=== PATIENT | male | born 1950 | race Caucasian/White ===

== ENCOUNTER 2017-01-22 18:16 | Inpatient (IN) | payer OTHER ==
[2017-01-22 18:45] VITALS: BMI 29.4
--- NOTE | 2017-01-22 19:12 | PDOC ---
History of Present Illness - General Chief Complaint: Revisit,Radiology Variance Stated Complaint: PCP SENT/CLOTS IN BOTH LUNGS Time Seen by Provider: 01/22/17 19:07 History Source: Patient Exam Limitations: No Limitations - History of Present Illness Initial Comments: 01/23/17 03:43 66-year-old male presents to the emergency department complaining of a bilateral pulmonary embolus. Patient states he's been experiencing a nonproductive cough 6 months. Patient states he was seen by his PMD who ordered an x-ray 4 months ago which was normal. Patient saw his PMD recently and had an appointment to get a CAT scan of his chest with IV contrast to determine any lung disease. Patient went to [facility] today and the radiologist directly him to the emergency department. Patient denies nausea, vomiting, fever/chills, headache, lightheadedness, dizziness, neck pains, back pains, chest pain, shortness of breath, abdominal pains, extremity numbness or tingling sensation, calf pain. Patient denies recent travel/flight, prolonged sitting or recent surgery. Associated Symptoms: reports: cough (since Aug 2016) Past History - Past Medical History Allergies/Adverse Reactions: Allergies Allergy/AdvReac Type Severity Reaction Status Date / Time No Known Allergies Allergy Verified 01/22/17 18:39 Home Medications: Ambulatory Orders Amlodipine Besylate 10 mg PO DAILY 01/22/17 Atenolol [Tenormin -] 50 mg PO DAILY 01/22/17 Atorvastatin Calcium 10 mg PO DAILY 01/22/17 Lisinopril/Hydrochlorothiazide [Lisinopril-Hctz 20-12.5 mg Tab] 1 each PO DAILY 01/22/17 HTN: Yes Hypercholesterolemia: Yes - Psycho/Social/Smoking Cessation Hx Suicidal Ideation: No Smoking History: Never smoked Review of Systems - Review of Systems Able to Perform ROS?: Yes Comments:: 01/23/17 03:45 CONSTITUTIONAL: Absent: fever, chills, diaphoresis, generalized weakness, malaise, loss of appetite HEENT: Absent: rhinorrhea, nasal congestion, throat pain, throat swelling, difficulty swallowing, mouth swelling, ear pain, eye pain, visual Changes CARDIOVASCULAR: Absent: chest pain, loss of consciousness, palpitations, irregular heart rate, peripheral edema RESPIRATORY: Absent: cough, shortness of breath, dyspnea with exertion, orthopnea, wheezing, stridor, hemoptysis GASTROINTESTINAL: Absent: abdominal pain, abdominal distension, nausea, vomiting, diarrhea, constipation, melena, hematochezia GENITOURINARY: Absent: dysuria, frequency, urgency, hesitancy, hematuria, flank pain, genital pain MUSCULOSKELETAL: Absent: myalgia, arthralgia, joint swelling SKIN: Absent: rash, itching, pallor HEMATOLOGIC/IMMUNOLOGIC: Absent: easy bleeding, easy bruising, lymphadenopathy, frequent infections ENDOCRINE: Absent: unexplained weight gain, unexplained weight loss, heat intolerance, cold intolerance NEUROLOGIC: Absent: headache, focal weakness or paresthesias, dizziness, unsteady gait, seizure, mental status changes, bladder or bowel incontinence PSYCHIATRIC: Absent: anxiety, depression, suicidal or homicidal ideation, hallucinations. Is the patient limited Mohawk proficient: No *Physical Exam - Vital Signs Last Vital Signs Temp Pulse Resp BP Pulse Ox 97.9 F 65 19 127/58 95 01/22/17 18:39 01/22/17 18:39 01/22/17 18:39 01/22/17 18:39 01/22/17 18:39 - Physical Exam Comments: 01/23/17 03:45 GENERAL: Well developed, well nourished. Awake and alert. No acute distress. HEENT: Normocephalic, atraumatic. PERRLA, EOMI. No conjunctival pallor. Sclera are non- icteric. Moist mucous membranes. Oropharynx is clear. NECK: Supple. Full ROM. No JVD. Carotid pulses 2+ and symmetric, without bruits. No thyromegaly. No lymphadenopathy. CARDIOVASCULAR: Regular rate and rhythm. No murmurs, rubs, or gallops. Distal pulses are 2+ and symmetric. PULMONARY: No evidence of respiratory distress. Lungs clear to auscultation bilaterally. No wheezing, rales or rhonchi. ABDOMINAL: Soft. Non-tender. Non-distended. No rebound or guarding. No organomegaly. Normoactive bowel sounds. MUSCULOSKELETAL Normal range of motion at all joints. No bony deformities or tenderness. No CVA tenderness. EXTREMITIES: No cyanosis. No clubbing. No edema. No calf tenderness. SKIN: Warm and dry. Normal capillary refill. No rashes. No jaundice. NEUROLOGICAL: Alert, awake, appropriate. Cranial nerves 2-12 intact. No deficits to light touch and temperature in face, upper extremities and lower extremities. No motor deficits in the in face, upper extremities and lower extremities. Normoreflexic in the upper and lower extremities. Normal speech. Toes are down- going bilaterally. Gait is normal without ataxia. PSYCHIATRIC: Cooperative. Good eye contact. Appropriate mood and affect. ED Treatment Course - LABORATORY CBC & Chemistry Diagram: 01/22/17 19:27 01/22/17 19:27 *DC/Admit/Observation/Transfer Diagnosis at time of Disposition: Pleural effusion, Substernal thyroid Pulmonary embolism Qualifiers: Pulmonary embolism type: other Chronicity: acute Acute cor pulmonale presence: without acute cor pulmonale Qualified Code(s): I26.99 - Other pulmonary embolism without acute cor pulmonale - Discharge Dispostion Condition at time of disposition: Guarded Admit: Yes - Referrals Progress Note - Progress Note Progress Note: PMD: Dr. Jennings [phone] [facility]/ Dr. Nance [phone] Language: [place] 1925hrs: Called Dr. Jennings/pt's pmd..service will send him a message to call the ER 1936hrs: Spoke to Dr. Jennings (pt's PMD) -Request Pulmonary consult by Dr. Pena/Nigel [phone] -Request Cardiology consult by Dr. Hope [phone] 1939hrs: Called Dr. Manning/pulmonary Patient's : speaks a little indonesian but I had to call residential advisor ( [facility]) Jai Alai Player [id number] 6hrs: Called Dr. Hope/cardiology 2156hrs: Spoke to Dr. Hope/cardiology.. req Hematology consult as well 2200hrs: Spoke to Dr. Jennings. advised Dr. Luke is requesting for hematology. Agrees with plan. -Dr. Tyron Franks group req ([phone]) 2202hrs: Called Dr. Evette Franks/hematology/will consult in the am. Will have echocardiogram in the am
--- NOTE | 2017-01-22 19:15 | PDOC ---
[id number] 95 01/22/17 18:39 01/22/17 18:39 01/22/17 18:39 01/22/17 18:39 01/22/17 18:39 ED Treatment Course - LABORATORY CBC & Chemistry Diagram: 01/26/17 05:35 01/25/17 05:35 Medical Decision Making - Medical Decision Making 01/22/17 19:14 Pt seen by the Advanced Practice Provider under my direct supervision Ancillary studies reviewed I agree with plan as outlined by the Advanced Practice Provider TONY Zhang *DC/Admit/Observation/Transfer Diagnosis at time of Disposition: Pulmonary embolism, Pleural effusion, Substernal thyroid - Discharge Dispostion Condition at time of disposition: Guarded
[2017-01-22] MEDS: SODIUM CHLORIDE 1,000 ML IV SCH (19:25)
[2017-01-22 19:37] LABS: BASOPHIL 1.4 % (0-2.0); EOSINOPHIL 1.7 % (0-4.5); MCH 31.3 pg (25.7-33.7); MCHC 33.5 g/dl (32.0-35.9); MEAN CELL VOLUME 93.3 fl (80-96); MEAN PLT VOLUME 8.2 fl (7.5-11.1); NEUTROPHILS 67.7 % (42.8-82.8); PLATELET COUNT 361 K/MM3 (134-434); RDW 13.6 % (11.9-15.9); WHITE BLOOD COUNT 9.6 K/mm3 (4.0-10.0)
[2017-01-22 19:50] LABS: INR 1.09 (0.82-1.09)
[2017-01-22 19:59] LABS: ALBUMIN 3.1 g/dl (3.4-5.0); ANION GAP 16 (8-16); BILIRUBIN,TOTAL 0.3 mg/dL (0.2-1.0); CALCIUM 8.9 mg/dL (8.5-10.1); CO2 23 mmol/L (21-32); COCKROFT - GAULT 89; GLUCOSE,RANDOM 118 mg/dL (74-106); SGOT/AST 38 U/L (15-37); SGPT/ALT 31 U/L (12-78); TOT PROT 6.5 g/dl (6.4-8.2)
[2017-01-22 20:02] LABS: ALK PHOS 69 U/L (45-117); TROPONIN I < 0.02 ng/ml (0.00-0.05)
[2017-01-22] MEDS ORDERED: HEPARIN NA (PORCINE) 5,000 UNITS/ML 1ML VIAL IVPUSH PRN (21:42)
[2017-01-22] MEDS ORDERED: HEPARIN INFUSION - 500 ML IVPB ONE (21:59)
[2017-01-22] MEDS: HEPARIN INFUSION - 500 ML IVPB SCH (22:11)
[2017-01-22] MEDS: ATORVASTATIN CA 10 MG TABLET (FP) PO SCH (23:01)
[2017-01-23] MEDS: HEPARIN NA (PORCINE) 5,000 UNITS/ML 1ML VIAL IVPUSH PRN ×2 (04:21→12:46)
[2017-01-23 08:20] LABS: BASOPHIL 1.2 % (0-2.0); EOSINOPHIL 3.6 % (0-4.5); MCH 32.2 pg (25.7-33.7); MCHC 34.7 g/dl (32.0-35.9); MEAN CELL VOLUME 92.8 fl (80-96); MEAN PLT VOLUME 8.6 fl (7.5-11.1); NEUTROPHILS 54.1 % (42.8-82.8); PLATELET COUNT 294 K/MM3 (134-434); RDW 13.6 % (11.9-15.9); WHITE BLOOD COUNT 6.6 K/mm3 (4.0-10.0)
[2017-01-23 08:46] LABS: ALBUMIN 2.8 g/dl (3.4-5.0); ANION GAP 12 (8-16); CALCIUM 8.4 mg/dL (8.5-10.1); CO2 25 mmol/L (21-32); GLUCOSE,RANDOM 93 mg/dL (74-106); MAGNESIUM 1.4 mg/dL (1.8-2.4)
--- NOTE | 2017-01-23 08:46 | HP ---
Admitting History and Physical - Admission Chief Complaint: 66 y.o Ukranian man developed cough, generalized fatigue, HAY, poor appetite and > 10 lbs weight loss in 5 months. He had 3 episodes of cough since last August each lasting for a week and his CXR in November 2016 was negative,. Seen in the office on January 11 with cough, wt loss, fatigue and RLL crackles. CT scan done yesterday at [facility] showed bilateral pulmonary embolism. After consulting with radiologist the patient was sent to ER [facility]. In the ER LE venous Dupplex showed bilateral DVT popliteal veins. Heparin was started IV and the pt was admitted for further management. After con History of Present Illness: HTN Accident at the job 10 years ago with injury of the right shoulder and ankle. 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 No: Asthma, Bronchitis, COPD, O2 Dependent, Previously Intubated Gastrointestinal: No: Ascites, Cancer, Crohn's Disease, Inflamatory Bowel Disease, Pancreatitis, Ulcerative Colitis Hepatobiliary: No: Cirrhosis, Cholelithiasis, Cholecystitis, Choledocholithiasis , Hepatitis A, Hepatitis B, Hepatitis C, Other Renal/: No: Renal Failure, Renal Inusuff, BPH, Cancer, Hematuria, Hemodialysis , Neurogenic Bladder, Renal Calculi, UTI, Other Heme/Onc: No: Anemia, B12 Deficiency, Bleeding Disorder, Cancer, Current Chemotherapy, Current Radiation Therapy, Hemochromatosis, Hypercoaguable State, Myeloproliferative Synd, Sickle Cell Disease, Sickle Cell Trait, Thrombocytopenia, Other Infectious Disease: No: AIDS, C-Diff, Herpes Zoster, HIV, MRSA, STD's, Tuberculosis, VREF, Other Psych: No: Addictions, Anxiety, Bipolar, Depression, Panic, Psychosis, Schizophrenia, Other Musculoskeletal: No: Bursitis, Chronic low back pain, Hemiparesis, Hemiplegia, Osteoarthritis, Paraplegia, Other Rheumatology: No: Fibromyalgia, Gout, Lupus, Rheumatoid Arthritis, Sarcoidosis, Vasculitis, Other ENT: No: Allergic Rhinitis, Sinusitis, Other Endocrine: No: [place]'s Disease, Becky's Disease, Diabetes Insipidus, Diabetes Mellitus, Hyperparathyroidism, Hyperthyroidism, Hypothyroidism, Osteopenia, SIADH, Other Dermatology: No: Basal Cell, Cellulitis, Eczema, Melanoma, Psoriasis, Squamous Cell, Other - Smoking History Smoking history: Never smoked - Alcohol/Substance Use Hx Alcohol Use: Yes (Quit drinking ETOH yrs ago) - Social History Usual Living Arrangement: Yes: With Spouse ADL: Independent History of Recent Travel: No Home Medications - Allergies Allergies/Adverse Reactions: Allergies Allergy/AdvReac Type Severity Reaction Status Date / Time No Known Allergies Allergy Verified 01/22/17 18:39 - Home Medications Home Medications: Ambulatory Orders Amlodipine Besylate 10 mg PO DAILY 01/22/17 Atenolol [Tenormin -] 50 mg PO DAILY 01/22/17 Atorvastatin Calcium 10 mg PO DAILY 01/22/17 Lisinopril/Hydrochlorothiazide [Lisinopril-Hctz 20-12.5 mg Tab] 1 each PO DAILY 01/22/17 Family Disease History - Family Disease History Family History: Unremarkable Review of Systems - Review of Systems Constitutional: reports: Loss of Appetite, Unintentional Wgt. Loss, Weakness Eyes: denies: No Symptoms, Blind Spots, Blurred Vision, Double Vision, Eye Pain , Floaters, Photophobia, Recent Change in Vision, Other HENT: denies: No Symptoms, Difficult Swallowing, Ear Discharge, Ear Pain, Epistaxis, Gingival Bleeding, Hearing Loss, Mouth Swelling, Nasal Congestion, Ocular Prosthesis, Throat Pain, Toothache, Ringing in Ears, Other Neck: denies: No Symptoms, Decreased ROM, Lumps, Pain on Movement, Stiffness, Swollen Glands, Tenderness, Other Cardiovascular: reports: Shortness of Breath. denies: Chest Pain, Edema, Palpitations Respiratory: reports: Cough (Improved), SOB on Exertion. denies: Hemoptysis, Wheezing Gastrointestinal: denies: Abdominal Pain, Indigestion, Melena, Nausea, Rectal Bleeding, Vomiting, Vomiting Blood Genitourinary: reports: No Symptoms Integumentary: reports: No Symptoms Neurological: reports: No Symptoms Endocrine: reports: Unexplained Weight Loss. denies: Excessive Sweating, Intolerance to Cold Hematology/Lymphatic: denies: Easily Bruised, Excessive Bleeding, Swollen Glands Psychiatric: reports: No Symptoms Physical Examination Vital Signs: Vital Signs Temperature 98.2 F 01/23/17 02:00 Pulse Rate 62 01/23/17 02:00 Respiratory Rate 19 01/23/17 06:49 Blood Pressure 113/62 01/23/17 02:00 O2 Sat by Pulse Oximetry (%) 98 01/23/17 06:49 Constitutional: Yes: No Distress, Anxious. No: Pallor, Thin Eyes: Yes: Conjunctiva Clear, EOM Intact, PERRL, Ptosis. No: Diplopia HENT: Yes: Atraumatic, Normocephalic, Other (Upper and low dentures). No: Drooling, Epistaxis, Hoarseness, Pharyngeal Erythema, Rhinnorhea, Thrush Neck: Yes: Supple, Trachea Midline, Thyromegaly. No: Decreased ROM, Lymphadenopathy, Tenderness Cardiovascular: Yes: Pulse Irregular (APV), S1, S2. No: Regular Rate and Rhythm , JVD Respiratory: Yes: Cough (Improved), Rales (Few RLL), SOB on Exertion. No: Diminished, Orthopnea, Stridor Gastrointestinal: Yes: Normal Bowel Sounds, Soft, Abdomen, Obese. No: Palpable Mass, Tenderness ...Rectal Exam: Yes: Sphincter Tone Normal, Other (Prostate enlarged, smooth, no nodules). No: Hemorrhoids/External, Mass Musculoskeletal: Yes: WNL Extremities: No: Amputation, Calf Tenderness, Cold, Cyanosis Edema: No Integumentary: Yes: WNL Neurological: Yes: WNL, Alert, Oriented, Cran Nerves II-XII Intact. No: Aphasia ...Motor Strength: WNL Psychiatric: Yes: WNL Labs: CBC, BMP 01/23/17 05:40 Laboratory Results - last 24 hr 01/22/17 01/22/17 01/22/17 19:27 19:27 19:27 WBC 9.6 RBC 4.41 Hgb 13.8 Hct 41.2 MCV 93.3 MCHC 33.5 RDW 13.6 Plt Count 361 MPV 8.2 Neutrophils % 67.7 Lymphocytes % 18.0 Monocytes % 11.2 H Eosinophils % 1.7 Basophils % 1.4 INR PTT (Actin FS) D-Dimer Sodium 142 Potassium 3.5 Chloride 103 Carbon Dioxide 23 Anion Gap 16 BUN 18 Creatinine 1.0 Creat Clearance w eGFR > 60 Random Glucose 118 H Calcium 8.9 Total Bilirubin 0.3 AST 38 H ALT 31 Alkaline Phosphatase 69 Creatine Kinase 74 Troponin I < 0.02 B-Natriuretic Peptide Total Protein 6.5 Albumin 3.1 L TSH Blood Type A POSITIVE Antibody Screen Negative 01/22/17 01/22/17 01/23/17 19:27 19:27 03:30 WBC RBC Hgb Hct MCV MCHC RDW Plt Count MPV Neutrophils % Lymphocytes % Monocytes % Eosinophils % Basophils % INR 1.09 PTT (Actin FS) D-Dimer 860 H Sodium Potassium Chloride Carbon Dioxide Anion Gap BUN Creatinine Creat Clearance w eGFR Random Glucose Calcium Total Bilirubin AST ALT Alkaline Phosphatase Creatine Kinase Troponin I B-Natriuretic Peptide Total Protein Albumin TSH 0.50 Blood Type Antibody Screen 01/23/17 01/23/17 01/23/17 03:30 05:40 05:40 WBC 6.6 D RBC 4.18 Hgb 13.5 Hct 38.8 MCV 92.8 MCHC 34.7 RDW 13.6 Plt Count 294 MPV 8.6 Neutrophils % 54.1 D Lymphocytes % 29.1 D Monocytes % 12.0 H Eosinophils % 3.6 D Basophils % 1.2 INR PTT (Actin FS) 41.7 H D-Dimer Sodium Potassium Chloride Carbon Dioxide Anion Gap BUN Creatinine Creat Clearance w eGFR Random Glucose Calcium Total Bilirubin AST ALT Alkaline Phosphatase Creatine Kinase Troponin I B-Natriuretic Peptide 925.39 H Total Protein Albumin TSH Blood Type Antibody Screen Imaging - Results Chest X-ray: Report Reviewed Cat Scan: Other (CT with C yesterday discussed with Dr Car) Ultrasound: Report Reviewed EKG: Image Reviewed Problem List - Problems (1) Pleural effusion Assessment/Plan: Possibly due to PE vs other ethiology, possibly diagnostic thotacenthesis Pulm consult Code(s): J90 - PLEURAL EFFUSION, NOT ELSEWHERE CLASSIFIED (2) Pulmonary embolism Assessment/Plan: Related to bilateral DVT IV Heparin for now . Will switch to Lovenox or Coumadin/NOAC. Etiologr/o malignancy-Lung, Pancreas, Kidney, prostate, etc R/p anti-phospholipid etc. Code(s): I26.99 - OTHER PULMONARY EMBOLISM WITHOUT ACUTE COR PULMONALE Qualifiers: Pulmonary embolism type: other Chronicity: acute Acute cor pulmonale presence: without acute cor pulmonale Qualified Code(s): I26.99 - Other pulmonary embolism without acute cor pulmonale (3) Substernal thyroid Assessment/Plan: Thyroid US P Code(s): E04.9 - NONTOXIC GOITER, UNSPECIFIED (4) Dvt femoral (deep venous thrombosis) Assessment/Plan: Will follow w/u Continue A/C Hematology consult Code(s): I82.419 - ACUTE EMBOLISM AND THROMBOSIS OF UNSPECIFIED FEMORAL VEIN Qualifiers: Laterality: bilateral Chronicity: acute Qualified Code(s): I82.413 - Acute embolism and thrombosis of femoral vein, bilateral (5) Pulmonary arterial hypertension Assessment/Plan: ECHO R/O CTEPH Cardiology Code(s): I27.2 - OTHER SECONDARY PULMONARY HYPERTENSION
[2017-01-23 08:50] LABS: ALK PHOS 59 U/L (45-117); BILIRUBIN,TOTAL 0.6 mg/dL (0.2-1.0); CHOLESTEROL 112 mg/dL (50-200); COCKROFT - GAULT 128; CREATININE 0.7 mg/dL (0.7-1.3); LDL CHOLESTEROL (ONLY SJRH) 60 mg/dL (5-100); SGOT/AST 31 U/L (15-37); SGPT/ALT 27 U/L (12-78); TOT PROT 5.7 g/dl (6.4-8.2)
--- NOTE | 2017-01-23 09:17 | CON.CARD ---
Consult Consult Specialty:: Cardiology Referred by:: Dr. Jennings Reason for Consultation:: Bilateral Pulmonary Emboli - History of Present Illness Chief Complaint: Cough x 6 months and weight loss History of Present Illness: 66M with chronic HTN, HL, obesity with 10lb unintentional weight loss and intermittent dry cough since August. Had CTA at [facility] yesterday showing bilateral pulmonary emboli and was admitted for AC. LE venous duplex here shows B/L DVTs. He denies recent surgery, prolonged air travel or any clear precipitating risk factor for VTE. Denies chest pain or SOB- only complaint is dry cough. Denies prior CT or cardiac hx. No fever or chills. Denies abdominal pain, melena. No hematuria. Denies smoking. 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 No: Asthma, Bronchitis, COPD, O2 Dependent, Previously Intubated Gastrointestinal: No: Ascites, Cancer, Crohn's Disease, Inflamatory Bowel Disease, Pancreatitis, Ulcerative Colitis Hepatobiliary: No: Cirrhosis, Cholelithiasis, Cholecystitis, Choledocholithiasis , Hepatitis A, Hepatitis B, Hepatitis C, Other Renal/: No: Renal Failure, Renal Inusuff, BPH, Cancer, Hematuria, Hemodialysis , Neurogenic Bladder, Renal Calculi, UTI, Other Infectious Disease: No: AIDS, C-Diff, Herpes Zoster, HIV, MRSA, STD's, Tuberculosis, VREF, Other Psych: No: Addictions, Anxiety, Bipolar, Depression, Panic, Psychosis, Schizophrenia, Other Musculoskeletal: No: Bursitis, Chronic low back pain, Hemiparesis, Hemiplegia, Osteoarthritis, Paraplegia, Other Rheumatology: No: Fibromyalgia, Gout, Lupus, Rheumatoid Arthritis, Sarcoidosis, Vasculitis, Other ENT: No: Allergic Rhinitis, Sinusitis, Other Endocrine: No: Rubens's Disease, Hutchinson's Disease, Diabetes Insipidus, Diabetes Mellitus, Hyperparathyroidism, Hyperthyroidism, Hypothyroidism, Osteopenia, SIADH, Other Dermatology: No: Basal Cell, Cellulitis, Eczema, Melanoma, Psoriasis, Squamous Cell, Other - Alcohol/Substance Use Hx Alcohol Use: Yes (Quit drinking ETOH yrs ago) - Smoking History Smoking history: Never smoked - Social History ADL: Independent History of Recent Travel: No Home Medications - Allergies Allergies/Adverse Reactions: Allergies Allergy/AdvReac Type Severity Reaction Status Date / Time No Known Allergies Allergy Verified 01/22/17 18:39 - Home Medications Home Medications: Ambulatory Orders Amlodipine Besylate 10 mg PO DAILY 01/22/17 Atenolol [Tenormin -] 50 mg PO DAILY 01/22/17 Atorvastatin Calcium 10 mg PO DAILY 01/22/17 Lisinopril/Hydrochlorothiazide [Lisinopril-Hctz 20-12.5 mg Tab] 1 each PO DAILY 01/22/17 Family Disease History - Family Disease History Family History: Unremarkable (denies early CAD, SCD or VTE) Review of Systems Findings/Remarks: SEE HPI - Review of Systems Constitutional: reports: Unintentional Wgt. Loss HENT: denies: No Symptoms, Difficult Swallowing, Ear Discharge, Ear Pain, Epistaxis, Gingival Bleeding, Hearing Loss, Mouth Swelling, Nasal Congestion, Ocular Prosthesis, Throat Pain, Toothache, Ringing in Ears, Other Neck: denies: No Symptoms, Decreased ROM, Lumps, Pain on Movement, Stiffness, Swollen Glands, Tenderness, Other Respiratory: reports: Cough Gastrointestinal: denies: No Symptoms, Abdominal Pain, Bloating, Constipation, Diarrhea, Dysphagia, Indigestion, Melena, Nausea, Rectal Bleeding, Vomiting, Vomiting Blood, Other Genitourinary: denies: No Symptoms, Burning, Discharge, Dysuria, Flank Pain, Frequency, Hematuria, Incontinence, Lesions, Menses, Pain, Testicular Mass, Testicular Pain, Testicular Swelling, Urgency, Vaginal Bleeding, Other Breasts: denies: No Symptoms Reported, See HPI, Breast Implants, Discharge from Nipple, Lumps, Pain, Skin Changes, Other Musculoskeletal: denies: No Symptoms, Back Pain, Crepitus, Decreased ROM, Extremity Pain, Joint Pain, Joint Swelling, Muscle Pain, Muscle Cramps, Muscle Weakness, Other Integumentary: denies: No Symptoms, Blister, Bruising, Change in Color, Eczema, Erythema, Incision, Lesions, Lump, Pallor, Pruritis, Rash, Wound, Other Endocrine: denies: No Symptoms, Excessive Sweating, Flushing, Increased Hunger, Increased Thirst, Intolerance to Cold, Intolerance to Heat, Unexplained Weight Gain, Unexplained Weight Loss, Other Hematology/Lymphatic: denies: No Symptoms, Easily Bruised, Excessive Bleeding, Swollen Glands, Other - Risk Factors Known Risk Factors: Yes: Hypercholesterolemia, Hypertension Vital Signs: Vital Signs Temperature 98.2 F 01/23/17 02:00 Pulse Rate 62 01/23/17 02:00 Respiratory Rate 19 01/23/17 06:49 Blood Pressure 113/62 01/23/17 02:00 O2 Sat by Pulse Oximetry (%) 98 01/23/17 06:49 Constitutional: Yes: No Distress, Calm Eyes: Yes: Conjunctiva Clear Neck: Yes: Trachea Midline Respiratory: Yes: CTA Bilaterally Gastrointestinal: Yes: Soft, Abdomen, Obese Cardiovascular: Yes: Regular Rate and Rhythm JVD: No Carotid Bruit: No PMI: Non-Displaced Heart Sounds: Yes: S1, S2 (normal S2, no murmurs) Edema: Yes Edema: LLE: 1+, RLE: 1+ Peripheral Pulses WNL: Yes Neurological: Yes: Alert, Oriented ...Motor Strength: WNL Psychiatric: Yes: WNL - Other Data Labs, Other Data: CBC, BMP 01/23/17 05:40 01/23/17 05:40 INR, PTT INR 1.09 (0.82-1.09) 01/22/17 19:27 Troponin, BNP 01/23/17 05:40 B-Natriuretic Peptide 925.39 H Troponin, BNP 01/23/17 05:40 B-Natriuretic Peptide 925.39 H Laboratory Tests 01/22/17 01/22/17 01/23/17 19:27 19:27 03:30 WBC Hct Plt Count PTT (Actin FS) D-Dimer 860 H Potassium Creatinine Magnesium Troponin I < 0.02 B-Natriuretic Peptide TSH 0.50 01/23/17 01/23/17 01/23/17 03:30 05:40 05:40 WBC 6.6 D Hct 38.8 Plt Count 294 PTT (Actin FS) 41.7 H D-Dimer Potassium 3.2 L Creatinine 0.7 D Magnesium 1.4 L Troponin I B-Natriuretic Peptide TSH 01/23/17 05:40 WBC Hct Plt Count PTT (Actin FS) D-Dimer Potassium Creatinine Magnesium Troponin I B-Natriuretic Peptide 925.39 H TSH NSR 72 bpm, RBBB, APCs Echo: Pending Imaging - Results Cat Scan: Report Reviewed EKG: Image Reviewed Problem List - Problems (1) Dvt femoral (deep venous thrombosis) Assessment/Plan: -On IV heparin gtts -Heme consult and hypercoag w/u as feasible while on AC -Age appropriate cancer screening Code(s): I82.419 - ACUTE EMBOLISM AND THROMBOSIS OF UNSPECIFIED FEMORAL VEIN Qualifiers: Laterality: bilateral Chronicity: acute Qualified Code(s): I82.413 - Acute embolism and thrombosis of femoral vein, bilateral (2) Pulmonary embolism Assessment/Plan: -no clear precipitating risk factor -Concern for underlying possible malignancy given unintentional weight loss -Continue AC -Heme/Onc Eval -Echo to assess RV, RVSP: have called nursing 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 Our Cardiology Department is closed for diagnostic imaging on weekends, but will try to obtain study if a tech can be called in. -Hemodynamically stable, suspect these are chronic or subacute. -Continue tele. thus far with NSR and RBBB (chronic). -TnI is negative, which is a good prognostic marker. -BNP is mildly elevated, but that may be due to chronic HTN and diastolic dysfunction. Code(s): I26.99 - OTHER PULMONARY EMBOLISM WITHOUT ACUTE COR PULMONALE Qualifiers: Pulmonary embolism type: other Chronicity: acute Acute cor pulmonale presence: without acute cor pulmonale Qualified Code(s): I26.99 - Other pulmonary embolism without acute cor pulmonale (3) Hypertension Assessment/Plan: -currently well controlled. -Continue home meds Code(s): I10 - ESSENTIAL (PRIMARY) HYPERTENSION Qualifiers: Hypertension type: essential hypertension Qualified Code(s): I10 - Essential (primary) hypertension (4) Hypokalemia Assessment/Plan: -repleting K+ -Maintain level 3.5-4.0 Code(s): E87.6 - HYPOKALEMIA (5) Hypomagnesemia Assessment/Plan: -repleting Mg2+ -Keep level >2.0 Code(s): E83.42 - HYPOMAGNESEMIA
[2017-01-23] MEDS: HYDROCHLOROTHIAZIDE 12.5 MG CAPSULE (FP) PO SCH (09:56)
[2017-01-23] MEDS: LISINOPRIL 20 MG TABLET (FP) PO SCH (09:56)
[2017-01-23] MEDS: ATENOLOL 50 MG TABLET (FP) PO SCH (09:56)
[2017-01-23] MEDS: amLODIPine BESYLATE 10 MG TABLET (FP) PO SCH (09:56)
[2017-01-23] MEDS: MAGNESIUM OXIDE 400 MG TABLET (FP) PO SCH ×2 (09:56→22:02)
[2017-01-23] MEDS: POTASSIUM CHLORIDE TABS 20 MEQ TABLET.ER (FP) PO SCH (09:56)
[2017-01-23] MEDS: HEPARIN INFUSION - 500 ML IVPB SCH ×3 (10:00→22:02)
[2017-01-23] MEDS: SODIUM CHLORIDE 1,000 ML IV SCH (10:01)
--- NOTE | 2017-01-23 10:53 | CON.PULM ---
Consult Consult Specialty:: PULMONARY Referred by:: Dr. Jennings Reason for Consultation:: pulmonary embolism - History of Present Illness Chief Complaint: cough History of Present Illness: 66yo male with h/o HTN, hyperlipidemia who was sent by his PMD after an outpt CTA chest showing bilateral pulmonary emboli. He was being worked up for a nonproductive cough for the past 6 months. History obtained from as pt primarily Dutch speaking. He denies any chest pain, shortness of breath or palpitations. No fevers, chills, night sweats but has lost 10lbs unintentionally. He denies any personal or family history of blood clots. He is a never smoker. Has not had a screening colonoscopy. Pt is ambulatory, does not lead a sedentary lifestyle, no prolonged immobility. - History Source History Provided By: Patient, Family Member, Medical Record Limitations to Obtaining History: Language Barrier - Past Medical History Cardio/Vascular: Yes: Deep Vein Thrombosis, HTN, Hyperlipdemia, Pulmonary Hypertension Pulmonary: Yes: Pulmonary Embolus - Alcohol/Substance Use Hx Alcohol Use: Yes (Quit drinking ETOH yrs ago) - Smoking History Smoking history: Never smoked - Social History ADL: Independent History of Recent Travel: No Home Medications - Allergies Allergies/Adverse Reactions: Allergies Allergy/AdvReac Type Severity Reaction Status Date / Time No Known Allergies Allergy Verified 01/22/17 18:39 - Home Medications Home Medications: Ambulatory Orders Amlodipine Besylate 10 mg PO DAILY 01/22/17 Atenolol [Tenormin -] 50 mg PO DAILY 01/22/17 Atorvastatin Calcium 10 mg PO DAILY 01/22/17 Lisinopril/Hydrochlorothiazide [Lisinopril-Hctz 20-12.5 mg Tab] 1 each PO DAILY 01/22/17 Family Disease History - Family Disease History Other Family History: non-contributory Review of Systems - Review of Systems Constitutional: reports: Unintentional Wgt. Loss. denies: Chills, Fever Eyes: denies: Recent Change in Vision HENT: denies: Nasal Congestion, Throat Pain Neck: denies: Stiffness, Tenderness Cardiovascular: denies: Chest Pain, Edema, Palpitations, Shortness of Breath Respiratory: reports: Cough. denies: Hemoptysis, Wheezing Gastrointestinal: denies: Abdominal Pain, Nausea, Vomiting Genitourinary: denies: Dysuria, Hematuria Neurological: denies: Dizziness, Headache Physical Exam Vital Sings: Vital Signs Temperature 98.2 F 01/23/17 02:00 Pulse Rate 62 01/23/17 02:00 Respiratory Rate 19 01/23/17 06:49 Blood Pressure 113/62 01/23/17 02:00 O2 Sat by Pulse Oximetry (%) 98 01/23/17 06:49 Constitutional: Yes: Calm Eyes: Yes: Conjunctiva Clear, EOM Intact HENT: Yes: Atraumatic, Normocephalic Neck: Yes: Supple, Trachea Midline Cardiovascular: Yes: Regular Rate and Rhythm Respiratory: Yes: Regular, CTA Bilaterally ...Clubbing: No Gastrointestinal: Yes: Normal Bowel Sounds, Soft. No: Tenderness Edema: No Neurological: Yes: Alert, Oriented Labs: CBC, BMP 01/23/17 05:40 01/23/17 05:40 Problem List - Problems (1) Dvt femoral (deep venous thrombosis) Code(s): I82.419 - ACUTE EMBOLISM AND THROMBOSIS OF UNSPECIFIED FEMORAL VEIN Qualifiers: Laterality: bilateral Chronicity: acute Qualified Code(s): I82.413 - Acute embolism and thrombosis of femoral vein, bilateral (2) Pulmonary embolism Code(s): I26.99 - OTHER PULMONARY EMBOLISM WITHOUT ACUTE COR PULMONALE Qualifiers: Pulmonary embolism type: other Chronicity: acute Acute cor pulmonale presence: without acute cor pulmonale Qualified Code(s): I26.99 - Other pulmonary embolism without acute cor pulmonale (3) Hypertension Code(s): I10 - ESSENTIAL (PRIMARY) HYPERTENSION Qualifiers: Hypertension type: essential hypertension Qualified Code(s): I10 - Essential (primary) hypertension (4) Hyperlipidemia Code(s): E78.5 - HYPERLIPIDEMIA, UNSPECIFIED Assessment/Plan Acute Pulmonary Emboli Acute DVT HTN Hyperlipidemia - continue IV heparin to target 50-70 - monitor H/H - echocardiogram to evaluate for RV strain/dysfunction - if no evidence of RV dysfunction, can start oral anticoagulant - f/u CT A/P - will need outpt colonoscopy and age appropriate cancer screening - will need at least 6 months of anticoagulation for unprovoked VTE - outpt hypercoagulable work up Thank you for this consult Igor Manning MD
[2017-01-23] MEDS ORDERED: INFLUENZA VACCINE 60 MCG/0.5 ML (P/F DISP.SYRIN 16-17) IM ONE (11:00)
[2017-01-23 12:27] LABS: URINE APPEARANCE CLEAR; URINE BILIRUBIN NEGATIVE (NEGATIVE); URINE BLOOD NEGATIVE (NEGATIVE); URINE COLOR STRAW; URINE GLUCOSE (UA) NEGATIVE (NEGATIVE); URINE KETONE TRACE (NEGATIVE); URINE LEUK ESTERASE NEGATIVE (NEGATIVE); URINE NITRITE NEGATIVE (NEGATIVE); URINE PROTEIN NEGATIVE (NEGATIVE); URINE UROBILINOGEN NEGATIVE E.U./dl (0.2-1.0)
--- NOTE | 2017-01-23 14:58 | CONSULT ---
Consult Consult Specialty:: Hematology Reason for Consultation:: New pulmonary embolism / LE DVT - History of Present Illness History of Present Illness: Patient with several months history of dry cough, eventually sent for CT scan and found to have bilateral PE, and bilateral popliteal DVTs - (as per admission note - studies performed elsewhere). Has been started on heparin gtt. No complaints at this time. Denied dyspnea, chest pain, leg swelling/discomfort. No preceding precipitating events/ prolonged immobilization. No prior thromboembolic events. Negative family history. - History Source History Provided By: Family Member Limitations to Obtaining History: Language Barrier - Past Medical History FIELD CARE COORDINATOR: No: Alzheimer's, CVA, Dementia, Migraine, Multiple Sclerosis, Peripheral Neuropathy, Parkinson's, Seizure, Syncope, TIA, Vertigo, Other Cardio/Vascular: Yes: Deep Vein Thrombosis, HTN, Hyperlipdemia Pulmonary: Yes: Pulmonary Embolus Gastrointestinal: No: Ascites, Cancer, Crohn's Disease, Inflamatory Bowel Disease, Pancreatitis, Ulcerative Colitis Hepatobiliary: No: Cirrhosis, Cholelithiasis, Cholecystitis, Choledocholithiasis , Hepatitis A, Hepatitis B, Hepatitis C, Other Renal/: No: Renal Failure, Renal Inusuff, BPH, Cancer, Hematuria, Hemodialysis , Neurogenic Bladder, Renal Calculi, UTI, Other Infectious Disease: No: AIDS, C-Diff, Herpes Zoster, HIV, MRSA, STD's, Tuberculosis, VREF, Other Psych: No: Addictions, Anxiety, Bipolar, Depression, Panic, Psychosis, Schizophrenia, Other Musculoskeletal: No: Bursitis, Chronic low back pain, Hemiparesis, Hemiplegia, Osteoarthritis, Paraplegia, Other Rheumatology: No: Fibromyalgia, Gout, Lupus, Rheumatoid Arthritis, Sarcoidosis, Vasculitis, Other ENT: No: Allergic Rhinitis, Sinusitis, Other Endocrine: No: [place]'s Disease, [place]'s Disease, Diabetes Insipidus, Diabetes Mellitus, Hyperparathyroidism, Hyperthyroidism, Hypothyroidism, Osteopenia, SIADH, Other Dermatology: No: Basal Cell, Cellulitis, Eczema, Melanoma, Psoriasis, Squamous Cell, Other - Past Surgical History Additional Surgical History: R ankle orthopedic procedire - pinned - following trauma. - Alcohol/Substance Use Hx Alcohol Use: Yes (Quit drinking ETOH yrs ago) - Smoking History Smoking history: Never smoked - Social History ADL: Independent History of Recent Travel: No Home Medications - Allergies Allergies/Adverse Reactions: Allergies Allergy/AdvReac Type Severity Reaction Status Date / Time No Known Allergies Allergy Verified 01/22/17 18:39 - Home Medications Home Medications: Ambulatory Orders Amlodipine Besylate 10 mg PO DAILY 01/22/17 Atenolol [Tenormin -] 50 mg PO DAILY 01/22/17 Atorvastatin Calcium 10 mg PO DAILY 01/22/17 Lisinopril/Hydrochlorothiazide [Lisinopril-Hctz 20-12.5 mg Tab] 1 each PO DAILY 01/22/17 Family Disease History - Family Disease History Family History: Unremarkable Other Family History: non-contributory Review of Systems - Review of Systems Constitutional: reports: Loss of Appetite (Few weeks) Eyes: reports: No Symptoms HENT: reports: No Symptoms Neck: reports: No Symptoms Cardiovascular: reports: No Symptoms Respiratory: reports: Other (Dry cough, as per HPI.) Gastrointestinal: reports: No Symptoms, Other Genitourinary: reports: No Symptoms Musculoskeletal: reports: No Symptoms Integumentary: reports: No Symptoms Neurological: reports: No Symptoms Endocrine: reports: No Symptoms Hematology/Lymphatic: reports: No Symptoms Psychiatric: reports: No Symptoms Physical Exam Vital Signs: Vital Signs Temperature 97.8 F 01/23/17 14:51 Pulse Rate 78 01/23/17 14:51 Respiratory Rate 18 01/23/17 14:51 Blood Pressure 130/66 01/23/17 14:51 O2 Sat by Pulse Oximetry (%) 98 01/23/17 06:49 Constitutional: Yes: Well Nourished, No Distress, Calm Eyes: Yes: WNL HENT: Yes: Atraumatic Neck: Yes: Supple, Trachea Midline, Thyromegaly Cardiovascular: Yes: WNL, Regular Rate and Rhythm, S1, S2. No: Gallop, Murmur Respiratory: Yes: Regular, CTA Bilaterally. No: Rhonchi, Wheezes Gastrointestinal: Yes: Normal Bowel Sounds, Soft, Abdomen, Obese ...Rectal Exam: Yes: Deferred Extremities: Yes: WNL, Other (R ankle - prior surgery.). No: Calf Tenderness Edema: No Neurological: Yes: Alert, Oriented, Cran Nerves II-XII Intact Psychiatric: Yes: Alert, Oriented Labs: CBC, BMP 01/23/17 05:40 01/23/17 05:40 Assessment/Plan Unprovoked, uncomplicated, bilateral PE, with bilateral LE DVT (as per report). Unusual presentation (cough). Will require at least 3 months AC, followed by consideration for extended AC. Hypercoagulable workup of no utility. Prior surgery R ankle may represent a risk factor for thrombosis on that side, but would not explain contralateral DVT. Age appropriate cancer screening (colonoscopy). CT abdomen and pelvis not unreasonable, as screen for occult malignancy. Consider LMWH BID, as easier and more reliable bridging strategy than heparin titration. Alternatively, can consider immediate initiation of a NOAC, generally preferable to warfarin, and without need for bridging AC. I see no strong indication for ongoing inpatient care, but will defer to pulmonary/cardiology/primary to determine if discharge warranted/safe.
[2017-01-23] MEDS ORDERED: MAGNESIUM SULF 50% (8.12 MEQ/2 ML-1 GM VIAL) IVPB ONE (20:59)
[2017-01-23] MEDS: ATORVASTATIN CA 10 MG TABLET (FP) PO SCH (22:02)
[2017-01-24] MEDS: SODIUM CHLORIDE 1,000 ML IV SCH (07:00)
[2017-01-24] MEDS ORDERED: WARFARIN NA 10 MG TABLET (FP) PO ONE (08:06)
--- NOTE | 2017-01-24 08:15 | PN ---
Progress Note (short form) - Note Progress Note: THE OFFICIAL RESULTS OF THE CT SCANS ARE PENDING. PT IS IN NAD NOW-DVT/PE-TREATMENTS AND ETHIOLOGY DISCUSSED WITH PATIENT AND TODAY. SPOKE TO DR RAY YESTERDAY Vital Signs Temp 97 F L 01/24/17 06:15 Pulse 56 L 01/24/17 06:15 Resp 20 01/24/17 06:15 BP 143/74 01/24/17 06:15 Pulse Ox 98 01/23/17 21:00 Intake & Output 01/23/17 01/23/17 01/24/17 11:59 23:59 11:59 Intake Total 059 757 5215 Output Total 200 250 Balance 442 157 4292 Weight 197 lb Intake: IV 346 2088 Normal Saline - 1,000 ml 200 1800 @ 150 mls/hr IV ASDIR [facility]ILA Rx#:[id number] Heparin Infusion - 500 ml 146 288 @ 1,000 UNITS/HR 20 mls/ hr IVPB TITR [facility] Rx#: [id number] IVPB 100 Oral 800 Output: Urine 200 250 Void 200 250 Other: Voiding Method Urinal Toilet Weight Measurement Method Standing Scale ON EXAM AWKE, ALERT NECK-NO JVD, NO BRUITS NO LN NO THYROMEGALY LUNGS ARE CLEAR ON LEFT, FEW CRACKLES ON RIGHT HEART S1S2 REGULAR ABDONMEN SOFT, NT, ODESE EXT-NO CCE NEURO CN2-12 , S L=R, MOTOR WNL, AMBULATES WELL ONC CONSULT APPRECIATED Laboratory Results - last 24 hr 01/23/17 01/23/17 01/23/17 05:40 05:40 05:40 WBC 6.6 D RBC 4.18 Hgb 13.5 Hct 38.8 MCV 92.8 MCHC 34.7 RDW 13.6 Plt Count 294 MPV 8.6 Neutrophils % 54.1 D Lymphocytes % 29.1 D Monocytes % 12.0 H Eosinophils % 3.6 D Basophils % 1.2 ESR PTT (Actin FS) Sodium 142 Potassium 3.2 L Chloride 105 Carbon Dioxide 25 Anion Gap 12 BUN 13 D Creatinine 0.7 D Creat Clearance w eGFR > 60 Random Glucose 93 D Calcium 8.4 L Magnesium 1.4 L Total Bilirubin 0.6 D AST 31 ALT 27 Alkaline Phosphatase 59 C-Reactive Protein 2.4 H B-Natriuretic Peptide Total Protein 5.7 L Albumin 2.8 L Triglycerides 105 Cholesterol 112 Total LDL Cholesterol 60 HDL Cholesterol 51 Urine Color Urine Appearance Urine pH Ur Specific Dexter Urine Protein Urine Glucose (UA) Urine Ketones Urine Blood Urine Nitrite Urine Bilirubin Urine Urobilinogen Ur Leukocyte Esterase 01/23/17 01/23/17 01/23/17 05:40 05:40 06:00 WBC RBC Hgb Hct MCV MCHC RDW Plt Count MPV Neutrophils % Lymphocytes % Monocytes % Eosinophils % Basophils % ESR 25 H PTT (Actin FS) Sodium Potassium Chloride Carbon Dioxide Anion Gap BUN Creatinine Creat Clearance w eGFR Random Glucose Calcium Magnesium Total Bilirubin AST ALT Alkaline Phosphatase C-Reactive Protein B-Natriuretic Peptide 925.39 H Total Protein Albumin Triglycerides Cholesterol Total LDL Cholesterol HDL Cholesterol Urine Color Straw Urine Appearance Clear Urine pH 7.0 Ur Specific Dexter 1.010 Urine Protein Negative Urine Glucose (UA) Negative Urine Ketones Trace H Urine Blood Negative Urine Nitrite Negative Urine Bilirubin Negative Urine Urobilinogen Negative Ur Leukocyte Esterase Negative 01/23/17 01/23/17 10:39 18:30 WBC RBC Hgb Hct MCV MCHC RDW Plt Count MPV Neutrophils % Lymphocytes % Monocytes % Eosinophils % Basophils % ESR PTT (Actin FS) 48.8 H 71.8 H D Sodium Potassium Chloride Carbon Dioxide Anion Gap BUN Creatinine Creat Clearance w eGFR Random Glucose Calcium Magnesium Total Bilirubin AST ALT Alkaline Phosphatase C-Reactive Protein B-Natriuretic Peptide Total Protein Albumin Triglycerides Cholesterol Total LDL Cholesterol HDL Cholesterol Urine Color Urine Appearance Urine pH Ur Specific Dexter Urine Protein Urine Glucose (UA) Urine Ketones Urine Blood Urine Nitrite Urine Bilirubin Urine Urobilinogen Ur Leukocyte Esterase Current Active Problems Problem Status Diagnosed Dvt femoral (deep venous thrombosis) Acute Hyperlipidemia Acute Hypertension Acute Hypokalemia Acute Hypomagnesemia Acute Pleural effusion Acute Pulmonary arterial hypertension Acute Pulmonary embolism Acute Substernal thyroid Acute PLAN START COUMADIN PO FOLLOW CT SCANS CONTINUE IV HEPARIN COLONOSCOPY OUT PATIENT DISCUSSED Problem List - Problems (1) Pleural effusion Code(s): J90 - PLEURAL EFFUSION, NOT ELSEWHERE CLASSIFIED (2) Pulmonary embolism Code(s): I26.99 - OTHER PULMONARY EMBOLISM WITHOUT ACUTE COR PULMONALE Qualifiers: Pulmonary embolism type: other Chronicity: acute Acute cor pulmonale presence: without acute cor pulmonale Qualified Code(s): I26.99 - Other pulmonary embolism without acute cor pulmonale (3) 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
[2017-01-24 08:31] LABS: MCH 32.2 pg (25.7-33.7); MCHC 34.7 g/dl (32.0-35.9); MEAN CELL VOLUME 92.8 fl (80-96); MEAN PLT VOLUME 8.7 fl (7.5-11.1); PLATELET COUNT 264 K/MM3 (134-434); RDW 13.5 % (11.9-15.9); WHITE BLOOD COUNT 5.2 K/mm3 (4.0-10.0)
[2017-01-24 09:00] LABS: ALBUMIN 2.6 g/dl (3.4-5.0); ANION GAP 8 (8-16); CALCIUM 7.9 mg/dL (8.5-10.1); CO2 26 mmol/L (21-32); GLUCOSE,RANDOM 109 mg/dL (74-106)
[2017-01-24 09:02] LABS: ALK PHOS 52 U/L (45-117); BILIRUBIN,TOTAL 0.4 mg/dL (0.2-1.0); COCKROFT - GAULT 134.74; CREATININE 0.7 mg/dL (0.7-1.3); SGOT/AST 25 U/L (15-37); SGPT/ALT 25 U/L (12-78); TOT PROT 5.4 g/dl (6.4-8.2)
[2017-01-24] MEDS: HEPARIN INFUSION - 500 ML IVPB SCH (09:08)
[2017-01-24] MEDS: POTASSIUM CHLORIDE TABS 20 MEQ TABLET.ER (FP) PO SCH (09:08)
[2017-01-24] MEDS: MAGNESIUM OXIDE 400 MG TABLET (FP) PO SCH ×2 (09:09→22:34)
[2017-01-24] MEDS: HYDROCHLOROTHIAZIDE 12.5 MG CAPSULE (FP) PO SCH (09:09)
[2017-01-24] MEDS: LISINOPRIL 20 MG TABLET (FP) PO SCH (09:09)
[2017-01-24] MEDS: amLODIPine BESYLATE 10 MG TABLET (FP) PO SCH (09:09)
[2017-01-24] MEDS: ATENOLOL 50 MG TABLET (FP) PO SCH (09:10)
--- NOTE | 2017-01-24 09:11 | PN ---
Progress Note, Physician Chief Complaint: seen and examined No chest pain or SOB TELE: NSR wit APCs CT scans pending - Current Medication List Current Medications: Active Medications Amlodipine Besylate (Norvasc -) 10 mg PO DAILY [facility] Last Admin: 01/24/17 09:09 Dose: 10 mg Atenolol (Tenormin -) 50 mg PO DAILY [facility] Last Admin: 01/24/17 09:10 Dose: 50 mg Atorvastatin Calcium (Lipitor -) 10 mg PO HS [facility] Last Admin: 01/23/17 22:02 Dose: 10 mg Heparin Sodium (Porcine) (Heparin -) 1,000 unit IVPUSH PRN PRN PRN Reason: Heparin Last Admin: 01/23/17 12:46 Dose: 1,000 unit Heparin Sodium (Porcine) (Heparin -) 5,000 unit IVPUSH PRN PRN PRN Reason: Heparin Hydrochlorothiazide (Hctz -) 12.5 mg PO DAILY [facility] Last Admin: 01/24/17 09:09 Dose: 12.5 mg Sodium Chloride (Normal Saline -) 1,000 mls @ 150 mls/hr IV ASDIR [facility] Last Admin: 01/24/17 07:00 Dose: 150 mls/hr Heparin Sodium/Dextrose (Heparin Infusion -) 500 mls @ 20 mls/hr IVPB TITR [facility]ILA ; 1,000 UNITS/HR PRN Reason: Protocol Last Admin: 01/24/17 09:08 Dose: 24 mls/hr Lisinopril (Prinivil) 20 mg PO DAILY [facility] Last Admin: 01/24/17 09:09 Dose: 20 mg Magnesium Oxide (Mag-Ox -) 400 mg PO BID [facility] Last Admin: 01/24/17 09:09 Dose: 400 mg Potassium Chloride (K-Dur -) 40 meq PO DAILY [facility] Stop: 01/25/17 23:59 Last Admin: 01/24/17 09:08 Dose: 40 meq - Objective Vital Signs: Vital Signs Temperature 97 F L 01/24/17 06:15 Pulse Rate 56 L 01/24/17 06:15 Respiratory Rate 20 01/24/17 06:15 Blood Pressure 143/74 01/24/17 06:15 O2 Sat by Pulse Oximetry (%) 98 01/23/17 21:00 Constitutional: Yes: No Distress, Calm Eyes: Yes: Conjunctiva Clear Neck: Yes: Supple, Trachea Midline Cardiovascular: Yes: Regular Rate and Rhythm Respiratory: Yes: CTA Bilaterally Gastrointestinal: Yes: Soft, Abdomen, Obese Edema: Yes Edema: LLE: 1+, RLE: 1+ Neurological: Yes: Alert, Oriented ...Motor Strength: WNL Labs: CBC, BMP 01/24/17 05:55 01/24/17 05:55 INR, PTT INR 1.09 (0.82-1.09) 01/22/17 19:27 Laboratory Tests 01/24/17 01/24/17 01/24/17 05:55 05:55 05:55 WBC 5.2 Hgb 12.9 Plt Count 264 PTT (Actin FS) 57.2 H Sodium 143 Potassium 3.2 L Creatinine 0.7 - ....Imaging EKG: Image Reviewed Problem List - Problems (1) Dvt femoral (deep venous thrombosis) Code(s): I82.419 - ACUTE EMBOLISM AND THROMBOSIS OF UNSPECIFIED FEMORAL VEIN Qualifiers: Laterality: bilateral Chronicity: acute Qualified Code(s): I82.413 - Acute embolism and thrombosis of femoral vein, bilateral (2) Pulmonary embolism Code(s): I26.99 - OTHER PULMONARY EMBOLISM WITHOUT ACUTE COR PULMONALE Qualifiers: Pulmonary embolism type: other Chronicity: acute Acute cor pulmonale presence: without acute cor pulmonale Qualified Code(s): I26.99 - Other pulmonary embolism without acute cor pulmonale (3) Hypertension Code(s): I10 - ESSENTIAL (PRIMARY) HYPERTENSION Qualifiers: Hypertension type: essential hypertension Qualified Code(s): I10 - Essential (primary) hypertension (4) Hypokalemia Code(s): E87.6 - HYPOKALEMIA (5) Hypomagnesemia Code(s): E83.42 - HYPOMAGNESEMIA Assessment/Plan IMP: 1. Bilateral PEs and DVT: unclear precipitant 2. HTN, chronic REC: 1. Continue AC: consideration for NOAC if deemed appropriate candidate. 2. Echo done yesterday, showed mild PHTN w/ mild RV enlargement and mildly reduced RV function. Discussed with Pulmonary: plan is to review clot burden and location on CTA and determine if he is candidate for lysis. Thus far, hemodynamically stable in NSR. 3. Age appropriate cancer screening as outpatient, appreciate Heme input.
--- NOTE | 2017-01-24 11:34 | PN ---
[id number] up. No events overnight. Still on heparin gtt. Meds reviewed. Current Medications Generic Name Dose Route Start Last Admin Trade Name Freq PRN Reason Stop Dose Admin Amlodipine Besylate 10 mg 01/23/17 10:00 01/24/17 09:09 Norvasc - PO 10 mg DAILY [facility] Administration Atenolol 50 mg 01/23/17 10:00 01/24/17 09:10 Tenormin - PO 50 mg DAILY [facility] Administration Atorvastatin Calcium 10 mg 01/22/17 22:00 01/23/17 22:02 Lipitor - PO 10 mg HS [facility] Administration Heparin Sodium (Porcine) 1,000 unit 01/22/17 21:42 01/23/17 12:46 Heparin - IVPUSH 1,000 unit PRN PRN Administration Heparin Heparin Sodium (Porcine) 5,000 unit 01/22/17 21:42 Heparin - IVPUSH PRN PRN Heparin Hydrochlorothiazide 12.5 mg 01/23/17 10:00 01/24/17 09:09 Hctz - PO 12.5 mg DAILY [facility] Administration Sodium Chloride 1,000 mls @ 150 mls/hr 01/22/17 19:15 01/24/17 07:00 Normal Saline - IV 150 mls/hr ASDIR [facility] Administration Heparin Sodium/Dextrose 500 mls @ 20 mls/hr 01/22/17 21:45 01/24/17 09:08 Heparin Infusion - IVPB 24 mls/hr TITR [facility] Administration Protocol 1,000 UNITS/HR Lisinopril 20 mg 01/23/17 10:00 01/24/17 09:09 Prinivil PO 20 mg DAILY [facility] Administration Magnesium Oxide 400 mg 01/23/17 10:00 01/24/17 09:09 Mag-Ox - PO 400 mg BID [facility] Administration Potassium Chloride 40 meq 01/23/17 10:00 01/24/17 09:08 K-Dur - PO 01/25/17 23:59 40 meq DAILY [facility] Administration On examination: Last Vital Signs Temp Pulse Resp BP Pulse Ox 98.3 F 62 20 138/73 98 01/24/17 10:00 01/24/17 10:00 01/24/17 10:00 01/24/17 10:00 01/23/17 21:00 General: In no acute distress. Oropharyngeal: No signs mucosal hemorrhage, no mucosal lesions. Extremities: No pallor, no icterus, no pedal edema. Chest:good air entry bilaterally, clear. Abdomen: Soft, no organomegaly, no masses. Neuro: Alert and oriented, non-focal. CVS: Normal sinus rhythm, S1, S2, no gallop or murmur. Labs reviewed: CBC, BMP 01/24/17 05:55 01/24/17 05:55 Assessment/Plan Unprovoked, uncomplicated, bilateral PE, with bilateral LE DVT (as per report). Unusual presentation (cough). Will require at least 3 months AC, followed by consideration for extended AC. Hypercoagulable workup of no utility. Prior surgery R ankle may represent a risk factor for thrombosis on that side, but would not explain contralateral DVT. Age appropriate cancer screening (colonoscopy). CT abdomen and pelvis not unreasonable, as screen for occult malignancy. Consider LMWH BID, as easier and more reliable bridging strategy than heparin titration. Alternatively, can consider immediate initiation of a NOAC, generally preferable to warfarin, and without need for bridging AC. No indication for thrombolysis. I see no strong indication for ongoing inpatient care, but will defer to pulmonary/cardiology/primary to determine if discharge warranted/safe.
[2017-01-24] MEDS: D5-1/2NS+40 MEQ KCL - 1,000 ML IV SCH (12:30)
--- NOTE | 2017-01-24 13:32 | PN ---
Progress Note (short form) - Note Progress Note: PULMONARY Denies shortness of breath or chest pain. No palpitations. Minimal cough. Last Vital Signs Temp Pulse Resp BP Pulse Ox 98.3 F 62 20 138/73 98 01/24/17 10:00 01/24/17 10:00 01/24/17 10:00 01/24/17 10:00 01/23/17 21:00 Gen: NAD at rest Heart: RRR Lung: decreased breath sounds at the bases Abd: soft, nontender Ext: no edema CBC, BMP 01/24/17 05:55 01/24/17 05:55 Active Medications Amlodipine Besylate (Norvasc -) 10 mg PO DAILY [facility] Last Admin: 01/24/17 09:09 Dose: 10 mg Atenolol (Tenormin -) 50 mg PO DAILY [facility] Last Admin: 01/24/17 09:10 Dose: 50 mg Atorvastatin Calcium (Lipitor -) 10 mg PO HS [facility] Last Admin: 01/23/17 22:02 Dose: 10 mg Heparin Sodium (Porcine) (Heparin -) 1,000 unit IVPUSH PRN PRN PRN Reason: Heparin Last Admin: 01/23/17 12:46 Dose: 1,000 unit Heparin Sodium (Porcine) (Heparin -) 5,000 unit IVPUSH PRN PRN PRN Reason: Heparin Hydrochlorothiazide (Hctz -) 12.5 mg PO DAILY [facility] Last Admin: 01/24/17 09:09 Dose: 12.5 mg Heparin Sodium/Dextrose (Heparin Infusion -) 500 mls @ 20 mls/hr IVPB TITR [facility] ; 1,000 UNITS/HR PRN Reason: Protocol Last Admin: 01/24/17 09:08 Dose: 24 mls/hr Dextrose/Sodium Chloride (D5-1/2ns+40 Meq Kcl -) 1,000 mls @ 75 mls/hr IV ASDIR [facility] Last Admin: 01/24/17 12:30 Dose: 75 mls/hr Lisinopril (Prinivil) 20 mg PO DAILY [facility] Last Admin: 01/24/17 09:09 Dose: 20 mg Magnesium Oxide (Mag-Ox -) 400 mg PO BID [facility] Last Admin: 01/24/17 09:09 Dose: 400 mg Potassium Chloride (K-Dur -) 40 meq PO DAILY [facility] Stop: 01/25/17 23:59 Last Admin: 01/24/17 09:08 Dose: 40 meq A/P Acute Pulmonary Emboli Acute DVT HTN Hyperlipidemia - echocardiogram with some RV dysfunction, CT scans reviewed, no central pulmonary emboli but more distal disease with evidence of wedge infarct - can start oral anticoagulation - monitor H/H - will need outpt colonoscopy and age appropriate cancer screening - will need at least 6 months of anticoagulation for unprovoked VTE - outpt hypercoagulable work up Problem List - Problems (1) Dvt femoral (deep venous thrombosis) Code(s): I82.419 - ACUTE EMBOLISM AND THROMBOSIS OF UNSPECIFIED FEMORAL VEIN Qualifiers: Laterality: bilateral Chronicity: acute Qualified Code(s): I82.413 - Acute embolism and thrombosis of femoral vein, bilateral (2) Pulmonary embolism Code(s): I26.99 - OTHER PULMONARY EMBOLISM WITHOUT ACUTE COR PULMONALE Qualifiers: Pulmonary embolism type: other Chronicity: acute Acute cor pulmonale presence: without acute cor pulmonale Qualified Code(s): I26.99 - Other pulmonary embolism without acute cor pulmonale (3) Hypertension Code(s): I10 - ESSENTIAL (PRIMARY) HYPERTENSION Qualifiers: Hypertension type: essential hypertension Qualified Code(s): I10 - Essential (primary) hypertension (4) Hyperlipidemia Code(s): E78.5 - HYPERLIPIDEMIA, UNSPECIFIED
[2017-01-24 16:08] LABS: PROSTATE SPECIFIC ANTIGEN 6.4 ng/mL (0.0-4.0)
[2017-01-24] MEDS: ATORVASTATIN CA 10 MG TABLET (FP) PO SCH (22:34)
[2017-01-25 07:01] LABS: MCH 31.9 pg (25.7-33.7); MCHC 34.1 g/dl (32.0-35.9); MEAN CELL VOLUME 93.5 fl (80-96); PLATELET COUNT 260 K/MM3 (134-434); RDW 13.6 % (11.9-15.9); WHITE BLOOD COUNT 6.4 K/mm3 (4.0-10.0)
[2017-01-25 07:16] LABS: INR 1.41 (0.82-1.09); PROTHROMBIN TIME (PATIENT) 15.6 SEC (9.98-11.88)
[2017-01-25 07:23] LABS: CALCIUM 7.9 mg/dL (8.5-10.1); COCKROFT - GAULT 117.9; CREATININE 0.8 mg/dL (0.7-1.3)
--- NOTE | 2017-01-25 08:26 | PN ---
Progress Note, Physician Chief Complaint: Epistaxis today-stopped now. CTA chest abdomen , pelvis-noted and discussed with radiology- paratracheal left mass-?goiter. US thyroid -pending. Also reported L pleural effusion> R, Right pulmonary infarct, Mediastinal LN. Enlarged prostate-benign looking. LE venous Dupplex was ordered to be repeated by oncology. B/L DVT Last night was called for right popliteal artery occlusion-? old. History of Present Illness: HTN RRight LE injury at work. Right shoulder injury HLD - Current Medication List Current Medications: Active Medications Amlodipine Besylate (Norvasc -) 10 mg PO DAILY [facility] Last Admin: 01/24/17 09:09 Dose: 10 mg Atenolol (Tenormin -) 50 mg PO DAILY [facility] Last Admin: 01/24/17 09:10 Dose: 50 mg Atorvastatin Calcium (Lipitor -) 10 mg PO HS [facility] Last Admin: 01/24/17 22:34 Dose: 10 mg Heparin Sodium (Porcine) (Heparin -) 1,000 unit IVPUSH PRN PRN PRN Reason: Heparin Last Admin: 01/23/17 12:46 Dose: 1,000 unit Heparin Sodium (Porcine) (Heparin -) 5,000 unit IVPUSH PRN PRN PRN Reason: Heparin Hydrochlorothiazide (Hctz -) 12.5 mg PO DAILY [facility] Last Admin: 01/24/17 09:09 Dose: 12.5 mg Heparin Sodium/Dextrose (Heparin Infusion -) 500 mls @ 20 mls/hr IVPB TITR [facility] ; 1,000 UNITS/HR PRN Reason: Protocol Last Admin: 01/24/17 09:08 Dose: 24 mls/hr Dextrose/Sodium Chloride (D5-1/2ns+40 Meq Kcl -) 1,000 mls @ 75 mls/hr IV ASDIR [facility] Last Admin: 01/24/17 12:30 Dose: 75 mls/hr Lisinopril (Prinivil) 20 mg PO DAILY [facility] Last Admin: 01/24/17 09:09 Dose: 20 mg Magnesium Oxide (Mag-Ox -) 400 mg PO BID [facility] Last Admin: 01/24/17 22:34 Dose: 400 mg Potassium Chloride (K-Dur -) 40 meq PO DAILY [facility] Stop: 01/25/17 23:59 Last Admin: 01/24/17 09:08 Dose: 40 meq - Objective Vital Signs: Vital Signs Temperature 98.2 F 01/25/17 05:34 Pulse Rate 64 01/25/17 05:34 Respiratory Rate 20 01/25/17 05:34 Blood Pressure 125/68 01/25/17 05:34 O2 Sat by Pulse Oximetry (%) 96 01/24/17 21:00 Constitutional: Yes: Anxious, Mild Distress Eyes: Yes: Conjunctiva Clear, EOM Intact HENT: Yes: Atraumatic, Normocephalic, Epistaxis (Right-stopped). No: Drooling Neck: Yes: Supple, Trachea Midline. No: Lymphadenopathy, Tenderness Cardiovascular: Yes: Regular Rate and Rhythm. No: Bradycardia, Tachycardia, JVD , Gallop, Rub Respiratory: Yes: Rales (RLL) Gastrointestinal: Yes: Normal Bowel Sounds, Soft, Abdomen, Obese. No: Palpable Mass, Tenderness ...Rectal Exam: Yes: Deferred Genitourinary: No: Anuria, Bladder Distention Breast(s): Yes: WNL Musculoskeletal: No: Joint Swelling, Muscle Pain, Muscle Weakness Extremities: No: Calf Tenderness, Cold, Cool, Cyanosis Edema: No Peripheral Pulses: Left Doralis Pedis: 0, Right Dorsalis Pedis: 0 Integumentary: Yes: WNL Neurological: Yes: Alert, Oriented. No: Aphasia, Dysarthria ...Motor Strength: WNL Psychiatric: Yes: WNL Labs: CBC, BMP 01/25/17 05:35 01/25/17 05:35 INR, PTT INR 1.41 (0.82-1.09) H 01/25/17 05:35 Laboratory Results - last 24 hr 01/23/17 01/24/17 01/24/17 05:40 05:55 05:55 WBC RBC Hgb Hct MCV MCHC RDW Plt Count MPV INR PTT (Actin FS) 57.2 H Sodium 143 Potassium 3.2 L Chloride 109 H Carbon Dioxide 26 Anion Gap 8 BUN 6 L D Creatinine 0.7 Creat Clearance w eGFR > 60 Random Glucose 109 H Calcium 7.9 L Total Bilirubin 0.4 D AST 25 ALT 25 Alkaline Phosphatase 52 Total Protein 5.4 L Albumin 2.6 L Carcinoembryonic Ag 1.3 Prostate Specific Ag 6.40 H 01/25/17 01/25/17 01/25/17 05:35 05:35 05:35 WBC 6.4 RBC 4.06 Hgb 12.9 Hct 37.9 MCV 93.5 MCHC 34.1 RDW 13.6 Plt Count 260 MPV 8.0 INR PTT (Actin FS) 96.0 H D Sodium 143 Potassium 3.8 Chloride 107 Carbon Dioxide 23 Anion Gap 13 BUN 6 L Creatinine 0.8 Creat Clearance w eGFR Random Glucose 123 H Calcium 7.9 L Total Bilirubin AST ALT Alkaline Phosphatase Total Protein Albumin Carcinoembryonic Ag Prostate Specific Ag 01/25/17 05:35 WBC RBC Hgb Hct MCV MCHC RDW Plt Count MPV INR 1.41 H PTT (Actin FS) Sodium Potassium Chloride Carbon Dioxide Anion Gap BUN Creatinine Creat Clearance w eGFR Random Glucose Calcium Total Bilirubin AST ALT Alkaline Phosphatase Total Protein Albumin Carcinoembryonic Ag Prostate Specific Ag Problem List - Problems (1) Pleural effusion Assessment/Plan: Possibly due to PE vs other ethiology, possibly diagnostic thotacenthesis Pulm consult Code(s): J90 - PLEURAL EFFUSION, NOT ELSEWHERE CLASSIFIED (2) Pulmonary embolism Assessment/Plan: Related to bilateral DVT IV Heparin for now . Code(s): I26.99 - OTHER PULMONARY EMBOLISM WITHOUT ACUTE COR PULMONALE Qualifiers: Pulmonary embolism type: other Chronicity: acute Acute cor pulmonale presence: without acute cor pulmonale Qualified Code(s): I26.99 - Other pulmonary embolism without acute cor pulmonale (3) Substernal thyroid Assessment/Plan: Thyroid US Pending r/o mass-CA Will discuss with IR vs sx Code(s): E04.9 - NONTOXIC GOITER, UNSPECIFIED (4) Dvt femoral (deep venous thrombosis) Assessment/Plan: Continue A/C Will transition to coumadin when biopsy performed. Code(s): I82.419 - ACUTE EMBOLISM AND THROMBOSIS OF UNSPECIFIED FEMORAL VEIN Qualifiers: Laterality: bilateral Chronicity: acute Qualified Code(s): I82.413 - Acute embolism and thrombosis of femoral vein, bilateral (5) Pulmonary arterial hypertension Assessment/Plan: ECHO noted Continue conservative management Code(s): I27.2 - OTHER SECONDARY PULMONARY HYPERTENSION (6) Occlusion of right popliteal artery Assessment/Plan: ? related to accident? Vascular consult Clinically the extremity warm, pink-appears well perfused. continue A/C Code(s): I74.3 - EMBOLISM AND THROMBOSIS OF ARTERIES OF THE LOWER EXTREMITIES (7) Epistaxis, recurrent Assessment/Plan: Ent consult Code(s): R04.0 - EPISTAXIS
[2017-01-25] MEDS: HEPARIN INFUSION - 500 ML IVPB SCH ×2 (09:05→22:38)
[2017-01-25] MEDS: amLODIPine BESYLATE 10 MG TABLET (FP) PO SCH (10:13)
[2017-01-25] MEDS: HYDROCHLOROTHIAZIDE 12.5 MG CAPSULE (FP) PO SCH (10:13)
[2017-01-25] MEDS: MAGNESIUM OXIDE 400 MG TABLET (FP) PO SCH ×2 (10:13→22:37)
[2017-01-25] MEDS: ATENOLOL 50 MG TABLET (FP) PO SCH (10:13)
[2017-01-25] MEDS: LISINOPRIL 20 MG TABLET (FP) PO SCH (10:13)
--- NOTE | 2017-01-25 10:14 | PN ---
Progress Note, Physician History of Present Illness: seen and examined today in nad. no overnight events. no new complaints. - Current Medication List Current Medications: Active Medications Amlodipine Besylate (Norvasc -) 10 mg PO DAILY [facility] Last Admin: 01/24/17 09:09 Dose: 10 mg Atenolol (Tenormin -) 50 mg PO DAILY [facility] Last Admin: 01/24/17 09:10 Dose: 50 mg Atorvastatin Calcium (Lipitor -) 10 mg PO HS [facility] Last Admin: 01/24/17 22:34 Dose: 10 mg Heparin Sodium (Porcine) (Heparin -) 1,000 unit IVPUSH PRN PRN PRN Reason: Heparin Last Admin: 01/23/17 12:46 Dose: 1,000 unit Heparin Sodium (Porcine) (Heparin -) 5,000 unit IVPUSH PRN PRN PRN Reason: Heparin Hydrochlorothiazide (Hctz -) 12.5 mg PO DAILY [facility] Last Admin: 01/24/17 09:09 Dose: 12.5 mg Heparin Sodium/Dextrose (Heparin Infusion -) 500 mls @ 20 mls/hr IVPB TITR [facility] ; 1,000 UNITS/HR PRN Reason: Protocol Last Admin: 01/25/17 09:05 Dose: 22 mls/hr Dextrose/Sodium Chloride (D5-1/2ns+40 Meq Kcl -) 1,000 mls @ 75 mls/hr IV ASDIR [facility] Last Admin: 01/24/17 12:30 Dose: 75 mls/hr Lisinopril (Prinivil) 20 mg PO DAILY [facility] Last Admin: 01/24/17 09:09 Dose: 20 mg Magnesium Oxide (Mag-Ox -) 400 mg PO BID [facility] Last Admin: 01/24/17 22:34 Dose: 400 mg Potassium Chloride (K-Dur -) 40 meq PO DAILY [facility] Stop: 01/25/17 23:59 Last Admin: 01/24/17 09:08 Dose: 40 meq - Objective Vital Signs: Vital Signs Temperature 98.2 F 01/25/17 05:34 Pulse Rate 64 01/25/17 05:34 Respiratory Rate 20 01/25/17 05:34 Blood Pressure 125/68 01/25/17 05:34 O2 Sat by Pulse Oximetry (%) 96 01/24/17 21:00 Constitutional: Yes: Well Nourished, No Distress, Calm Eyes: Yes: WNL, Conjunctiva Clear, EOM Intact, PERRL HENT: Yes: WNL, Atraumatic, Normocephalic Neck: Yes: WNL, Supple, Trachea Midline Cardiovascular: Yes: WNL, Regular Rate and Rhythm, S1, S2. No: Bradycardia, Tachycardia, Pulse Irregular, Bruit, JVD, Gallop, Murmur, Rub, S3, S4, Varicosities Respiratory: Yes: Regular, Diminished. No: Rales, Rhonchi, SOB, Wheezes Gastrointestinal: Yes: WNL, Normal Bowel Sounds, Soft. No: Distention, Tenderness Musculoskeletal: Yes: WNL Extremities: Yes: WNL Edema: No Peripheral Pulses WNL: Yes Peripheral Pulses: Left Doralis Pedis: 2+, Right Dorsalis Pedis: 2+ Integumentary: Yes: WNL Neurological: Yes: WNL, Alert, Oriented, Cran Nerves II-XII Intact ...Motor Strength: WNL Psychiatric: Yes: WNL, Alert, Oriented Labs: CBC, BMP 01/25/17 05:35 01/25/17 05:35 INR, PTT INR 1.41 (0.82-1.09) H 01/25/17 05:35 - ....Imaging Chest X-ray: Report Reviewed, Image Reviewed EKG: Report Reviewed, Image Reviewed Other: Report Reviewed, Image Reviewed (tele-nsr, apcs, brief self limited PSVT) Assessment/Plan 66 year old man with a history of HTN, HLD, Obesity, recent 10lb weight loss and dry cough for several months, admitted after outpatient CTA showed b/l PE's and doppler US here confirmed DVTs LE. Pulmonary embolisms-with associated DVTs, unclear etiology -pt overall asymptomatic, only dry cough -echo results reviewed -cont AC -age appropriate cancer screening -hypercoagulable work up -pulm f/up HTN-adequately controlled -cont norvasc, lisinopril, atenolol HLD -on lipitor PSVT-brief, self limited, asymptomatic episode recorded on tele -likely precipitated by PE's -cont atenolol -outpatient f/up, consider event monitor as outpatient
--- NOTE | 2017-01-25 11:13 | PN ---
Progress Note, Physician History of Present Illness: pulmonary alert,nad,-sob,-cp,min cough - Current Medication List Current Medications: Active Medications Amlodipine Besylate (Norvasc -) 10 mg PO DAILY [facility] Last Admin: 01/25/17 10:13 Dose: 10 mg Atenolol (Tenormin -) 50 mg PO DAILY [facility] Last Admin: 01/25/17 10:13 Dose: 50 mg Atorvastatin Calcium (Lipitor -) 10 mg PO HS [facility] Last Admin: 01/24/17 22:34 Dose: 10 mg Heparin Sodium (Porcine) (Heparin -) 1,000 unit IVPUSH PRN PRN PRN Reason: Heparin Last Admin: 01/23/17 12:46 Dose: 1,000 unit Heparin Sodium (Porcine) (Heparin -) 5,000 unit IVPUSH PRN PRN PRN Reason: Heparin Hydrochlorothiazide (Hctz -) 12.5 mg PO DAILY [facility] Last Admin: 01/25/17 10:13 Dose: 12.5 mg Heparin Sodium/Dextrose (Heparin Infusion -) 500 mls @ 20 mls/hr IVPB TITR [facility] ; 1,000 UNITS/HR PRN Reason: Protocol Last Admin: 01/25/17 09:05 Dose: 22 mls/hr Dextrose/Sodium Chloride (D5-1/2ns+40 Meq Kcl -) 1,000 mls @ 75 mls/hr IV ASDIR [facility] Last Admin: 01/24/17 12:30 Dose: 75 mls/hr Lisinopril (Prinivil) 20 mg PO DAILY [facility] Last Admin: 01/25/17 10:13 Dose: 20 mg Magnesium Oxide (Mag-Ox -) 400 mg PO BID [facility] Last Admin: 01/25/17 10:13 Dose: 400 mg Potassium Chloride (K-Dur -) 40 meq PO DAILY [facility] Stop: 01/25/17 23:59 Last Admin: 01/24/17 09:08 Dose: 40 meq - Objective Vital Signs: Vital Signs Temperature 98.2 F 01/25/17 05:34 Pulse Rate 64 01/25/17 05:34 Respiratory Rate 20 01/25/17 05:34 Blood Pressure 125/68 01/25/17 05:34 O2 Sat by Pulse Oximetry (%) 96 01/24/17 21:00 Constitutional: Yes: Well Nourished, Calm Eyes: Yes: WNL HENT: Yes: WNL Neck: Yes: WNL Cardiovascular: Yes: Regular Rate and Rhythm, S1, S2 Respiratory: Yes: CTA Bilaterally Gastrointestinal: Yes: Normal Bowel Sounds, Soft Extremities: Yes: WNL Edema: No Labs: CBC, BMP 01/25/17 05:35 01/25/17 05:35 INR, PTT INR 1.41 (0.82-1.09) H 01/25/17 05:35 Assessment/Plan A/P Acute Pulmonary Emboli Acute DVT HTN Hyperlipidemia Pulmonary Htn - start oral anticoagulation consider Eliquis 10mg bid x 7 days then 5 mg bid - monitor H/H - outpt colonoscopy and age appropriate cancer screening - will need at least 6 months of anticoagulation for unprovoked VTE - outpt hypercoagulable work up - F/U echo outpatient Problem List - Problems (1) Dvt femoral (deep venous thrombosis) Code(s): I82.419 - ACUTE EMBOLISM AND THROMBOSIS OF UNSPECIFIED FEMORAL VEIN Qualifiers: Laterality: bilateral Chronicity: acute Qualified Code(s): I82.413 - Acute embolism and thrombosis of femoral vein, bilateral (2) Pulmonary embolism Code(s): I26.99 - OTHER PULMONARY EMBOLISM WITHOUT ACUTE COR PULMONALE Qualifiers: Pulmonary embolism type: other Chronicity: acute Acute cor pulmonale presence: without acute cor pulmonale Qualified Code(s): I26.99 - Other pulmonary embolism without acute cor pulmonale (3) Hypertension Code(s): I10 - ESSENTIAL (PRIMARY) HYPERTENSION Qualifiers: Hypertension type: essential hypertension Qualified Code(s): I10 - Essential (primary) hypertension (4) Hyperlipidemia Code(s): E78.5 - HYPERLIPIDEMIA, UNSPECIFIED
[2017-01-25] MEDS: POTASSIUM CHLORIDE TABS 20 MEQ TABLET.ER (FP) PO SCH (11:54)
--- NOTE | 2017-01-25 12:53 | EKG ---
Test Reason : Blood Pressure : / mmHG Vent. Rate : 071 BPM Atrial Rate : 071 BPM P-R Int : 164 ms QRS Dur : 136 ms QT Int : 454 ms P-R-T Axes : 011 -81 -34 degrees QTc Int : 493 ms SINUS RHYTHM WITH PREMATURE ATRIAL COMPLEXES IN A PATTERN OF BIGEMINY LEFT AXIS DEVIATION RIGHT BUNDLE BRANCH BLOCK NONSPECIFIC T WAVE ABNORMALITY ABNORMAL ECG NO PREVIOUS ECGS AVAILABLE Confirmed by SANTIAGO HUNTER, CARLOS ([id number]) on 01/25/2017 12:53:13 PM Referred By: Confirmed By:CARLOS HENDERSON MD
[2017-01-25] MEDS: D5-1/2NS+40 MEQ KCL - 1,000 ML IV SCH (15:39)
--- NOTE | 2017-01-25 18:50 | CONSULT ---
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: No: Alzheimer's, CVA, Dementia, Migraine, Multiple Sclerosis, Peripheral Neuropathy, Parkinson's, Seizure, Syncope, TIA, Vertigo, Other Cardio/Vascular: Yes: Deep Vein Thrombosis, HTN, Hyperlipdemia Pulmonary: Yes: Pulmonary Embolus Gastrointestinal: No: Ascites, Cancer, Crohn's Disease, Inflamatory Bowel Disease, Pancreatitis, Ulcerative Colitis Hepatobiliary: No: Cirrhosis, Cholelithiasis, Cholecystitis, Choledocholithiasis , Hepatitis A, Hepatitis B, Hepatitis C, Other Renal/: No: Renal Failure, Renal Inusuff, BPH, Cancer, Hematuria, Hemodialysis , Neurogenic Bladder, Renal Calculi, UTI, Other Infectious Disease: No: AIDS, C-Diff, Herpes Zoster, HIV, MRSA, STD's, Tuberculosis, VREF, Other Psych: No: Addictions, Anxiety, Bipolar, Depression, Panic, Psychosis, Schizophrenia, Other Musculoskeletal: No: Bursitis, Chronic low back pain, Hemiparesis, Hemiplegia, Osteoarthritis, Paraplegia, Other Rheumatology: No: Fibromyalgia, Gout, Lupus, Rheumatoid Arthritis, Sarcoidosis, Vasculitis, Other ENT: No: Allergic Rhinitis, Sinusitis, Other Endocrine: No: [place]'s Disease, [place]'s Disease, Diabetes Insipidus, Diabetes Mellitus, Hyperparathyroidism, Hyperthyroidism, Hypothyroidism, Osteopenia, SIADH, Other Dermatology: No: Basal Cell, Cellulitis, Eczema, Melanoma, Psoriasis, Squamous Cell, Other - Past Surgical History Additional Surgical History: R ankle orthopedic procedire - pinned - following trauma. - Alcohol/Substance Use Hx Alcohol Use: Yes (Quit drinking ETOH yrs ago) - Smoking History Smoking history: Never smoked - Social History ADL: Independent History of Recent Travel: No Home Medications - Allergies Allergies/Adverse Reactions: Allergies Allergy/AdvReac Type Severity Reaction Status Date / Time No Known Allergies Allergy Verified 01/22/17 18:39 - Home Medications Home Medications: Ambulatory Orders Amlodipine Besylate 10 mg PO DAILY 01/22/17 Atenolol [Tenormin -] 50 mg PO DAILY 01/22/17 Atorvastatin Calcium 10 mg PO DAILY 01/22/17 Lisinopril/Hydrochlorothiazide [Lisinopril-Hctz 20-12.5 mg Tab] 1 each PO DAILY 01/22/17 Family Disease History - Family Disease History Other Family History: non-contributory Physical Exam Vital Signs: Vital Signs Temperature 98.4 F 01/25/17 18:00 Pulse Rate 67 01/25/17 18:00 Respiratory Rate 19 01/25/17 18:00 Blood Pressure 141/70 01/25/17 18:00 O2 Sat by Pulse Oximetry (%) 96 01/24/17 21:00 Labs: CBC, BMP 01/25/17 05:35 01/25/17 05:35 Assessment/Plan [facility] 66 y.o [place] man developed cough, generalized fatigue, HAY, poor appetite and > 10 lbs weight loss in 5 months. He had 3 episodes of cough since last August each lasting for a week and his CXR in November 2016 was negative,. Seen in the office on January 11 with cough, wt loss, fatigue and RLL crackles. CT scan done yesterday at [facility] showed bilateral pulmonary embolism. After consulting with radiologist the patient was sent to ER [facility]. In the ER LE venous Dupplex showed bilateral DVT popliteal veins. Heparin was started IV and the pt was admitted for further management. After con History of Present Illness: HTN Accident at the job 10 years ago with injury of the right shoulder and ankle. History Source: Patient, Family Member, Medical Record Limitations to Obtaining History: No Limitations PE Head - NC/AT Lung - CTA Heart - RRR abd - soft,nt,nd Ext - warm, pink. Right lower ext - pink, warm, palpable PT pulse. Left lower ext -- warm, pink. minimal swelling. A/P DVT left lower ext with PE venous duplex showed filling defect in right pop artery -- however on examination the right foot is pink and warm with palpable pulses. No intervention needed for that. Pt with LLE tibial vein DVT with PE Will need AC -- first episode of DVT with PE -- 6 months. Pt might be hypercoaguble from possible mass in his thyroid. Scan pending. Rule out CA. Eleuterio Fenton DO
[2017-01-25] MEDS: ATORVASTATIN CA 10 MG TABLET (FP) PO SCH (22:37)
[2017-01-26 07:08] LABS: MCH 32.4 pg (25.7-33.7); MCHC 34.5 g/dl (32.0-35.9); MEAN CELL VOLUME 93.9 fl (80-96); MEAN PLT VOLUME 8.1 fl (7.5-11.1); PLATELET COUNT 267 K/MM3 (134-434); RDW 13.7 % (11.9-15.9); WHITE BLOOD COUNT 6.3 K/mm3 (4.0-10.0)
[2017-01-26 07:22] LABS: INR 1.49 (0.82-1.09); PROTHROMBIN TIME (PATIENT) 16.5 SEC (9.98-11.88)
--- NOTE | 2017-01-26 09:29 | PN ---
Progress Note, Physician Chief Complaint: no acute distress TELE: NSR w/ rare single APCS, sinus waylon while asleep in mid 40s, no sig pauses or V-ectopy - Current Medication List Current Medications: Active Medications Amlodipine Besylate (Norvasc -) 10 mg PO DAILY [facility] Last Admin: 01/25/17 10:13 Dose: 10 mg Atenolol (Tenormin -) 50 mg PO DAILY [facility] Last Admin: 01/25/17 10:13 Dose: 50 mg Atorvastatin Calcium (Lipitor -) 10 mg PO HS [facility] Last Admin: 01/25/17 22:37 Dose: 10 mg Heparin Sodium (Porcine) (Heparin -) 1,000 unit IVPUSH PRN PRN PRN Reason: Heparin Last Admin: 01/23/17 12:46 Dose: 1,000 unit Heparin Sodium (Porcine) (Heparin -) 5,000 unit IVPUSH PRN PRN PRN Reason: Heparin Hydrochlorothiazide (Hctz -) 12.5 mg PO DAILY [facility] Last Admin: 01/25/17 10:13 Dose: 12.5 mg Heparin Sodium/Dextrose (Heparin Infusion -) 500 mls @ 20 mls/hr IVPB TITR [facility] ; 1,000 UNITS/HR PRN Reason: Protocol Last Admin: 01/25/17 22:38 Dose: 22 mls/hr Dextrose/Sodium Chloride (D5-1/2ns+40 Meq Kcl -) 1,000 mls @ 75 mls/hr IV ASDIR [facility] Last Admin: 01/25/17 15:39 Dose: 75 mls/hr Lisinopril (Prinivil) 20 mg PO DAILY [facility] Last Admin: 01/25/17 10:13 Dose: 20 mg Magnesium Oxide (Mag-Ox -) 400 mg PO BID [facility] Last Admin: 01/25/17 22:37 Dose: 400 mg - Objective Vital Signs: Vital Signs Temperature 97.9 F 01/26/17 02:00 Pulse Rate 55 L 01/26/17 02:00 Respiratory Rate 18 01/26/17 02:00 Blood Pressure 144/75 01/26/17 02:00 O2 Sat by Pulse Oximetry (%) 96 01/25/17 21:00 Constitutional: Yes: No Distress Eyes: Yes: Conjunctiva Clear Cardiovascular: Yes: Regular Rate and Rhythm Respiratory: Yes: CTA Bilaterally Gastrointestinal: Yes: Soft Edema: Yes Edema: LLE: 1+, RLE: 1+ Neurological: Yes: Alert, Oriented ...Motor Strength: WNL Labs: CBC, BMP 01/26/17 05:35 01/25/17 05:35 INR, PTT INR 1.49 (0.82-1.09) H 01/26/17 05:35 Laboratory Tests 01/23/17 01/25/17 01/25/17 05:40 05:35 05:35 WBC Hgb Hct Plt Count INR PTT (Actin FS) Sodium 143 BUN 6 L Creatinine 0.8 Tumor Marker AFP 3.6 Carcinoembryonic Ag 1.3 Prostate Specific Ag 6.40 H 01/26/17 01/26/17 01/26/17 05:35 05:35 05:35 WBC 6.3 Hgb 13.5 Hct 39.0 Plt Count 267 INR 1.49 H PTT (Actin FS) 58.0 H Sodium BUN Creatinine Tumor Marker AFP Carcinoembryonic Ag Prostate Specific Ag Problem List - Problems (1) Dvt femoral (deep venous thrombosis) Code(s): I82.419 - ACUTE EMBOLISM AND THROMBOSIS OF UNSPECIFIED FEMORAL VEIN Qualifiers: Laterality: bilateral Chronicity: acute Qualified Code(s): I82.413 - Acute embolism and thrombosis of femoral vein, bilateral (2) Pulmonary embolism Code(s): I26.99 - OTHER PULMONARY EMBOLISM WITHOUT ACUTE COR PULMONALE Qualifiers: Pulmonary embolism type: other Chronicity: acute Acute cor pulmonale presence: without acute cor pulmonale Qualified Code(s): I26.99 - Other pulmonary embolism without acute cor pulmonale (3) Hypertension Code(s): I10 - ESSENTIAL (PRIMARY) HYPERTENSION Qualifiers: Hypertension type: essential hypertension Qualified Code(s): I10 - Essential (primary) hypertension (4) Hypokalemia Code(s): E87.6 - HYPOKALEMIA (5) Hypomagnesemia Code(s): E83.42 - HYPOMAGNESEMIA Assessment/Plan Assessment/Plan 66 year old man with a history of HTN, HLD, Obesity, recent 10lb weight loss and dry cough for several months, admitted after outpatient CTA showed b/l PE's and doppler US here confirmed DVTs LE. Pulmonary embolisms-with associated DVTs, unclear etiology -pt overall asymptomatic, only dry cough -cont AC as per PMD and pulmonary -age appropriate cancer screening as outpatient, PSA is elevated. HTN-adequately controlled -cont norvasc, lisinopril, atenolol HLD -on lipitor
[2017-01-26] MEDS: ATENOLOL 50 MG TABLET (FP) PO SCH (09:30)
[2017-01-26] MEDS: MAGNESIUM OXIDE 400 MG TABLET (FP) PO SCH (09:30)
[2017-01-26] MEDS: amLODIPine BESYLATE 10 MG TABLET (FP) PO SCH (09:30)
[2017-01-26] MEDS: HYDROCHLOROTHIAZIDE 12.5 MG CAPSULE (FP) PO SCH (09:30)
[2017-01-26] MEDS: LISINOPRIL 20 MG TABLET (FP) PO SCH (09:30)
[2017-01-26] MEDS: HEPARIN INFUSION - 500 ML IVPB SCH (10:04)
--- NOTE | 2017-01-26 10:26 | PN ---
Progress Note, Physician History of Present Illness: pulmonary alert,nad,-sob,-cp.O2 sat 97% - Current Medication List Current Medications: Active Medications Amlodipine Besylate (Norvasc -) 10 mg PO DAILY [facility] Last Admin: 01/26/17 09:30 Dose: 10 mg Atenolol (Tenormin -) 50 mg PO DAILY [facility] Last Admin: 01/26/17 09:30 Dose: 50 mg Atorvastatin Calcium (Lipitor -) 10 mg PO HS [facility] Last Admin: 01/25/17 22:37 Dose: 10 mg Heparin Sodium (Porcine) (Heparin -) 1,000 unit IVPUSH PRN PRN PRN Reason: Heparin Last Admin: 01/23/17 12:46 Dose: 1,000 unit Heparin Sodium (Porcine) (Heparin -) 5,000 unit IVPUSH PRN PRN PRN Reason: Heparin Hydrochlorothiazide (Hctz -) 12.5 mg PO DAILY [facility] Last Admin: 01/26/17 09:30 Dose: 12.5 mg Heparin Sodium/Dextrose (Heparin Infusion -) 500 mls @ 20 mls/hr IVPB TITR [facility] ; 1,000 UNITS/HR PRN Reason: Protocol Last Admin: 01/25/17 22:38 Dose: 22 mls/hr Dextrose/Sodium Chloride (D5-1/2ns+40 Meq Kcl -) 1,000 mls @ 75 mls/hr IV ASDIR [facility] Last Admin: 01/25/17 15:39 Dose: 75 mls/hr Lisinopril (Prinivil) 20 mg PO DAILY [facility] Last Admin: 01/26/17 09:30 Dose: 20 mg Magnesium Oxide (Mag-Ox -) 400 mg PO BID [facility] Last Admin: 01/26/17 09:30 Dose: 400 mg - Objective Vital Signs: Vital Signs Temperature 97.9 F 01/26/17 02:00 Pulse Rate 55 L 01/26/17 02:00 Respiratory Rate 18 01/26/17 02:00 Blood Pressure 144/75 01/26/17 02:00 O2 Sat by Pulse Oximetry (%) 96 01/25/17 21:00 Constitutional: Yes: Well Nourished, Calm Eyes: Yes: WNL HENT: Yes: WNL Neck: Yes: WNL Cardiovascular: Yes: Regular Rate and Rhythm, S1, S2 Respiratory: Yes: CTA Bilaterally Gastrointestinal: Yes: Normal Bowel Sounds, Soft Extremities: Yes: WNL, Other (min swelling lle) Labs: CBC, BMP 01/26/17 05:35 01/25/17 05:35 INR, PTT INR 1.49 (0.82-1.09) H 01/26/17 05:35 Assessment/Plan A/P Acute Pulmonary Emboli Acute DVT HTN Hyperlipidemia Pulmonary Htn Thyroid mass - start oral anticoagulation consider Eliquis 10mg bid x 7 days then 5 mg bid x 6 months - monitor H/H - outpt colonoscopy and age appropriate cancer screening - outpt hypercoagulable work up - F/U echo outpatient DR MCDONALD Problem List - Problems (1) Dvt femoral (deep venous thrombosis) Code(s): I82.419 - ACUTE EMBOLISM AND THROMBOSIS OF UNSPECIFIED FEMORAL VEIN Qualifiers: Laterality: bilateral Chronicity: acute Qualified Code(s): I82.413 - Acute embolism and thrombosis of femoral vein, bilateral (2) Pulmonary embolism Code(s): I26.99 - OTHER PULMONARY EMBOLISM WITHOUT ACUTE COR PULMONALE Qualifiers: Pulmonary embolism type: other Chronicity: acute Acute cor pulmonale presence: without acute cor pulmonale Qualified Code(s): I26.99 - Other pulmonary embolism without acute cor pulmonale (3) Hypertension Code(s): I10 - ESSENTIAL (PRIMARY) HYPERTENSION Qualifiers: Hypertension type: essential hypertension Qualified Code(s): I10 - Essential (primary) hypertension (4) Hyperlipidemia Code(s): E78.5 - HYPERLIPIDEMIA, UNSPECIFIED
[2017-01-26 10:59] VITALS: BP 126/50; PULSE 62; TEMP 98.2
--- NOTE | 2017-01-26 11:46 | CONSULT ---
Consult Consult Specialty:: ENT - History of Present Illness Chief Complaint: nosebleed History of Present Illness: Patient presented and admitted with bilateral DVT, PE, started on anticoagulation. The other night was blowing his nose and had some blood-tinged mucous from the right side. Stopped spontaneously. No associated pain. It did not drip and no further bleeding. He's has no significant antecedent bleeding history. Note - history limited by language barrier. 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: No: Alzheimer's, CVA, Dementia, Migraine, Multiple Sclerosis, Peripheral Neuropathy, Parkinson's, Seizure, Syncope, TIA, Vertigo, Other Cardio/Vascular: Yes: Deep Vein Thrombosis, HTN, Hyperlipdemia Pulmonary: Yes: Pulmonary Embolus Gastrointestinal: No: Ascites, Cancer, Crohn's Disease, Inflamatory Bowel Disease, Pancreatitis, Ulcerative Colitis Hepatobiliary: No: Cirrhosis, Cholelithiasis, Cholecystitis, Choledocholithiasis , Hepatitis A, Hepatitis B, Hepatitis C, Other Renal/: No: Renal Failure, Renal Inusuff, BPH, Cancer, Hematuria, Hemodialysis , Neurogenic Bladder, Renal Calculi, UTI, Other Infectious Disease: No: AIDS, C-Diff, Herpes Zoster, HIV, MRSA, STD's, Tuberculosis, VREF, Other Psych: No: Addictions, Anxiety, Bipolar, Depression, Panic, Psychosis, Schizophrenia, Other Musculoskeletal: No: Bursitis, Chronic low back pain, Hemiparesis, Hemiplegia, Osteoarthritis, Paraplegia, Other Rheumatology: No: Fibromyalgia, Gout, Lupus, Rheumatoid Arthritis, Sarcoidosis, Vasculitis, Other ENT: No: Allergic Rhinitis, Sinusitis, Other Endocrine: No: Rubens's Disease, Terrell's Disease, Diabetes Insipidus, Diabetes Mellitus, Hyperparathyroidism, Hyperthyroidism, Hypothyroidism, Osteopenia, SIADH, Other Dermatology: No: Basal Cell, Cellulitis, Eczema, Melanoma, Psoriasis, Squamous Cell, Other - Past Surgical History Additional Surgical History: R ankle orthopedic procedire - pinned - following trauma. - Alcohol/Substance Use Hx Alcohol Use: Yes (Quit drinking ETOH yrs ago) - Smoking History Smoking history: Never smoked - Social History ADL: Independent History of Recent Travel: No Home Medications - Allergies Allergies/Adverse Reactions: Allergies Allergy/AdvReac Type Severity Reaction Status Date / Time No Known Allergies Allergy Verified 01/22/17 18:39 - Home Medications Home Medications: Ambulatory Orders Amlodipine Besylate 10 mg PO DAILY 01/22/17 Atenolol [Tenormin -] 50 mg PO DAILY 01/22/17 Atorvastatin Calcium 10 mg PO DAILY 01/22/17 Lisinopril/Hydrochlorothiazide [Lisinopril-Hctz 20-12.5 mg Tab] 1 each PO DAILY 01/22/17 Family Disease History - Family Disease History Other Family History: non-contributory Physical Exam Vital Signs: Vital Signs Temperature 98.2 F 01/26/17 10:00 Pulse Rate 62 01/26/17 10:00 Respiratory Rate 14 01/26/17 10:00 Blood Pressure 126/50 01/26/17 10:00 O2 Sat by Pulse Oximetry (%) 96 01/25/17 21:00 Constitutional: Yes: Well Nourished, No Distress, Calm, Other (Sitting at bedside edge) Eyes: Yes: WNL HENT: Yes: Other (Ears: cerumen bilaterally; Nose: +DNS with no anterior bleeding. Minimal septal excoriation bilaterally, o/w clear. Mouth: partial dentition, recessed tonsils, no gross masses/lesions.) Neck: Yes: WNL Labs: CBC, BMP 01/26/17 05:35 01/25/17 05:35 Problem List - Problems (1) Epistaxis Assessment/Plan: Limited in nature, hasn't recurred > 24 hours. Recommend observation, use of saline spray, and gentle noseblowing. Avoid nasal canula as the prongs often promote epistaxis. Thank you for this consultation. Please call with questions. Code(s): R04.0 - EPISTAXIS
--- NOTE | 2017-01-26 12:57 | PN ---
Progress Note (short form) - Note Progress Note: Feels well, No complaints ENT, Vascular, pulmonary and cardiology consults appreciated. Spoke to Dr. Lopez-he wants to wait at least 1 month before attemting thyroid biopsy. Will sent for eval re elevated PSA, screening colonoscopy, pulmonary as outpt. Explained to pt and . Vital Signs - 24 hr 01/25/17 01/25/17 01/25/17 14:42 18:00 21:00 Temperature 99.6 F 98.4 F Pulse Rate 55 L 67 Respiratory 16 19 Rate Blood Pressure 146/53 141/70 O2 Sat by Pulse 96 Oximetry (%) 01/25/17 01/26/17 01/26/17 22:00 02:00 10:00 Temperature 99.1 F 97.9 F 98.2 F Pulse Rate 55 L 55 L 62 Respiratory 18 18 14 Rate Blood Pressure 133/74 144/75 126/50 O2 Sat by Pulse Oximetry (%) PE Neck supple No JVD Lungs Clear Heart S1S2 , single extrasystoly. Abdomen soft, NT/ND Ext warm,no CCE Laboratory Results - last 24 hr 01/25/17 01/25/17 01/26/17 05:35 14:40 05:35 WBC 6.3 RBC 4.15 Hgb 13.5 Hct 39.0 MCV 93.9 MCHC 34.5 RDW 13.7 Plt Count 267 MPV 8.1 INR PTT (Actin FS) 51.1 H D Tumor Marker AFP 3.6 01/26/17 01/26/17 05:35 05:35 WBC RBC Hgb Hct MCV MCHC RDW Plt Count MPV INR 1.49 H PTT (Actin FS) 58.0 H Tumor Marker AFP Current Medications Generic Name Dose Route Start Last Admin Trade Name Freq PRN Reason Stop Dose Admin Amlodipine Besylate 10 mg 01/23/17 10:00 01/26/17 09:30 Norvasc - PO 10 mg DAILY LILA Administration Apixaban 10 mg 01/26/17 12:45 Eliquis - PO BID LILA Atenolol 50 mg 01/23/17 10:00 01/26/17 09:30 Tenormin - PO 50 mg DAILY LILA Administration Atorvastatin Calcium 10 mg 01/22/17 22:00 01/25/17 22:37 Lipitor - PO 10 mg HS LILA Administration Hydrochlorothiazide 12.5 mg 01/23/17 10:00 01/26/17 09:30 Hctz - PO 12.5 mg DAILY LILA Administration Lisinopril 20 mg 01/23/17 10:00 01/26/17 09:30 Prinivil PO 20 mg DAILY LILA Administration Magnesium Oxide 400 mg 01/23/17 10:00 01/26/17 09:30 Mag-Ox - PO 400 mg BID LILA Administration Current Active Problems Problem Status Diagnosed Dvt femoral (deep venous thrombosis) Acute Epistaxis Acute Epistaxis, recurrent Acute Hyperlipidemia Acute Hypertension Acute Hypokalemia Acute Hypomagnesemia Acute Occlusion of right popliteal artery Acute Pleural effusion Acute Pulmonary arterial hypertension Acute Pulmonary embolism Acute Substernal thyroid Acute Plan D/c Home on Eliquis 10 mg BID and after 1 week 5 mg BID F/U in the office 1 week Problem List - Problems (1) Pleural effusion Code(s): J90 - PLEURAL EFFUSION, NOT ELSEWHERE CLASSIFIED (2) Pulmonary embolism Code(s): I26.99 - OTHER PULMONARY EMBOLISM WITHOUT ACUTE COR PULMONALE Qualifiers: Pulmonary embolism type: other Chronicity: acute Acute cor pulmonale presence: without acute cor pulmonale Qualified Code(s): I26.99 - Other pulmonary embolism without acute cor pulmonale (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
--- NOTE | 2017-01-26 12:59 | DS ---
Physical Examination Vital Signs: Vital Signs Temperature 98.2 F 01/26/17 10:00 Pulse Rate 62 01/26/17 10:00 Respiratory Rate 14 01/26/17 10:00 Blood Pressure 126/50 01/26/17 10:00 O2 Sat by Pulse Oximetry (%) 96 01/25/17 21:00 Constitutional: Yes: No Distress, Calm Eyes: Yes: Conjunctiva Clear, EOM Intact HENT: Yes: Atraumatic, Normocephalic Neck: Yes: Supple, Trachea Midline. No: Decreased ROM, Lymphadenopathy Cardiovascular: Yes: Pulse Irregular (APC) Respiratory: Yes: Regular, CTA Bilaterally Gastrointestinal: Yes: Normal Bowel Sounds, Soft, Abdomen, Obese ...Rectal Exam: Yes: Deferred Renal/: No: Anuria, Bladder Distention Musculoskeletal: No: Back Pain, Joint Stiffness Extremities: No: Calf Tenderness, Cold, Cyanosis Edema: No Peripheral Pulses WNL: No Integumentary: Yes: WNL Neurological: Yes: WNL ...Motor Strength: WNL Psychiatric: Yes: WNL Labs: CBC, BMP 01/26/17 05:35 01/25/17 05:35 Discharge Summary Reason For Visit: PLEURAL EFFUSION,PULMONARY EMBOLISM Current Active Problems Dvt femoral (deep venous thrombosis) (Acute) Epistaxis (Acute) Epistaxis, recurrent (Acute) Hyperlipidemia (Acute) Hypertension (Acute) Hypokalemia (Acute) Hypomagnesemia (Acute) Occlusion of right popliteal artery (Acute) Pleural effusion (Acute) Pulmonary arterial hypertension (Acute) Pulmonary embolism (Acute) Substernal thyroid (Acute) Condition: Good - Instructions Referrals: Kevin Jennings MD [Staff Physician] - Disposition: HOME - Home Medications Comprehensive Discharge Medication List: Ambulatory Orders Amlodipine Besylate 10 mg PO DAILY 01/22/17 Atenolol [Tenormin -] 50 mg PO DAILY 01/22/17 Atorvastatin Calcium 10 mg PO DAILY 01/22/17 Lisinopril/Hydrochlorothiazide [Lisinopril-Hctz 20-12.5 mg Tab] 1 each PO DAILY 01/22/17
[2017-01-26] MEDS ORDERED: APIXABAN 5 MG TABLET PO SCH (13:30)
== END 2017-01-26 14:38 | disposition home or self-care (01) | DRG 134 ==
LOC: JER 18:16 → JERBED 19:53 → UNDOADMOB 19:53 → JERBED 20:13 → OBSVTOIN 20:13 → INTOOBSV 20:13 → JERBED 20:49 → UNDOADMOB 20:49 → J4W 22:53 → JERBED 22:53
PROVIDERS: ADMIT Internal Medicine; ATTEND Internal Medicine
PROC: 3E033GC Introduction of Other Therapeutic Substance into Peripheral Vein, Percutaneous Approach (ICD-10-PCS; principal; 2017-01-22)
DX: I26.99 Other pulmonary embolism without acute cor pulmonale (principal); J90 Pleural effusion, not elsewhere classified; E04.9 Nontoxic goiter, unspecified; I82.433 Acute embolism and thrombosis of popliteal vein, bilateral; R05 Cough; I10 Essential (primary) hypertension; E78.5 Hyperlipidemia, unspecified; I27.2 Other secondary pulmonary hypertension; E66.9 Obesity, unspecified; Z68.30 Body mass index [BMI] 30.0-30.9, adult; E87.6 Hypokalemia; E83.42 Hypomagnesemia; N40.0 Benign prostatic hyperplasia without lower urinary tract symptoms; R04.0 Epistaxis; I47.1 Supraventricular tachycardia
CPT/HCPCS: 36415; 71010-TC; 71275-TC; 74177-TC; 80048; 80053; 80061; 81003; 82105; 82378; 82550; 83721; 83735; 83880; 84153; 84443; 84484; 85025; 85027; 85379; 85610; 85651; 85730; 86140; 86301; 86850; 86900; 86901; 93005; 93010; 93306-TC; 93970-TC; 99283-25; J1644

== ENCOUNTER 2017-06-08 12:54 | Inpatient (IN) | payer OTHER ==
[2017-06-08 13:07] VITALS: BMI 35.5
--- NOTE | 2017-06-08 13:29 | PDOC ---
Attending Attestation - Resident Resident Name: SandipDavey sena - ED Attending Attestation I have performed the following: I have examined & evaluated the patient, The case was reviewed & discussed with the resident, I agree w/resident's findings & plan, Exceptions are as noted - HPI HPI: 06/08/17 13:43 pt sent by PMD for eval of thyroid mass that compresses the trachea - on pradaxa for PE. will need to stop anticoagulation for pre-op for OR. - Physicial Exam PE: 06/08/17 13:44 Gen: aaox3, nad, speaking in full sentences Heart: +s1s2 waylon Lungs: cta b/l, no stridor Neck: supple, thyromegaly, no LAD Abd: soft, nt/nd +bs Ext: no c/c/e - Medical Decision Making 06/08/17 13:44 a/p: 67yo male with thyroid mass compressing trachea -preop labs -ekg -cxr -admit to PMD. 06/08/17 15:23 pt with hypokalemia - will replace. pt admitted. Discharge Disposition - Diagnosis Thyroid mass, Hypokalemia due to loss of potassium - Discharge Dispostion Condition at time of disposition: Guarded Admit: Yes - Transfer to Acute Care Facility Transfer comment: 06/08/17 15:23 I, Dr. Dara Abrams, DO, attest that this document has been prepared under my direction and personally reviewed by me in its entirety. I further attest, that it accurately reflects all work, treatment, procedures and medical decision -making performed by me. Heart Score/ECG Review - ECG Intrepretation Comment:: 06/08/17 14:32 sinus at 71, rbbb, pvc, left anterior fasicular block, no acute st/t wave findings
--- NOTE | 2017-06-08 13:55 | PDOC ---
History of Present Illness - General Chief Complaint: Respiratory Stated Complaint: PCP SENT Time Seen by Provider: 06/08/17 13:17 History Source: Patient Exam Limitations: No Limitations - History of Present Illness Initial Comments: 06/08/17 13:49 Patient is a 67M with a history of a thyroid nodule and PE (Dx in 01/27, on pradaxa for anticoagulation) here today to be admitted for a biopsy of his thyroid. His PCP (Dr Jennings) sent him in to be admitted for anticoagulation reversal before the procedure. He complains of some mild shortness of breath, occasional changes to his voice and occasional cough. His PCP says he is concerned for the mass compressing his trachea. He denies chest pain, shortness of breath at this moment, and leg pain. He denies nausea, vomiting, fevers and chills. Past History - Past Medical History Allergies/Adverse Reactions: Allergies Allergy/AdvReac Type Severity Reaction Status Date / Time No Known Allergies Allergy Verified 06/08/17 13:02 Home Medications: Ambulatory Orders Amlodipine Besylate 10 mg PO DAILY 01/22/17 Atenolol [Tenormin -] 50 mg PO DAILY 01/22/17 Lisinopril/Hydrochlorothiazide [Lisinopril-Hctz 20-12.5 mg Tab] 1 each PO DAILY 01/22/17 Dabigatran Etexilate Mesylate [Pradaxa -] 150 mg PO BID 06/08/17 HTN: Yes Hypercholesterolemia: Yes - Immunization History Immunization Up to Date: Yes - Suicide/Smoking/Psychosocial Hx Smoking History: Never smoked Have you smoked in the past 12 months: No Information on smoking cessation initiated: No Hx Alcohol Use: No Drug/Substance Use Hx: No Substance Use Type: None Hx Substance Use Treatment: No Review of Systems - Review of Systems Comments:: 06/08/17 13:55 GENERAL/CONSTITUTIONAL: No fever or chills. No weakness. HEAD, EYES, EARS, NOSE AND THROAT: No change in vision. No sore throat. CARDIOVASCULAR: No chest pain. Occasional shortness of breath RESPIRATORY: Occasional cough. No wheezing, or hemoptysis. GASTROINTESTINAL: No nausea, vomiting, diarrhea or constipation. GENITOURINARY: No dysuria, frequency, or change in urination. MUSCULOSKELETAL: No joint or muscle swelling or pain. No neck or back pain. SKIN: No rash NEUROLOGIC: No headache, vertigo, loss of consciousness, or change in strength/ sensation. ENDOCRINE: No increased thirst. No abnormal weight change HEMATOLOGIC/LYMPHATIC: No anemia, easy bleeding, or history of blood clots. *Physical Exam - Vital Signs Last Vital Signs Temp Pulse Resp BP Pulse Ox 98.2 F 58 L 18 122/76 100 06/08/17 13:02 06/08/17 13:28 06/08/17 13:28 06/08/17 13:28 06/08/17 13:28 - Physical Exam Comments: 06/08/17 13:56 GENERAL: Awake, alert, and fully oriented, in no acute distress HEAD: No signs of trauma, normocephalic, atraumatic EYES: PERRLA, EOMI, sclera anicteric, conjunctiva clear ENT: Auricles normal inspection, hearing grossly normal, nares patent, oropharynx clear without exudates. Moist mucosa LUNGS: No distress, speaks full sentences, clear to auscultation bilaterally HEART: Regular rate and rhythm, normal S1 and S2, no murmurs, rubs or gallops, peripheral pulses normal and equal bilaterally. ABDOMEN: Soft, nontender, normoactive bowel sounds. No guarding, no rebound. No masses EXTREMITIES: Normal inspection, Normal range of motion, no edema. No clubbing or cyanosis. NEUROLOGICAL: Cranial nerves II through XII grossly intact. Normal speech, normal gait, no focal sensorimotor deficits SKIN: Warm, Dry, normal turgor, no rashes or lesions noted. ED Treatment Course - LABORATORY CBC & Chemistry Diagram: 06/08/17 14:08 06/08/17 14:08 Medical Decision Making - Medical Decision Making 06/08/17 13:56 Patient 67M with history of thyroid mass and PE (on pradaxa) here today to be admitted for anticoagulation reversal before a procedure. Vital signs stable. Will evaluate with pre-op labs, cxr, and ekg. Will admit to Dr Jennings, who I spoke with about this case and is aware that patient is here to be admitted as planned. 06/08/17 15:13 Laboratory Tests 06/08/17 06/08/17 14:08 14:08 WBC 8.1 Hgb 14.1 Hct 41.0 Plt Count 243 Potassium 2.9 L* D Given 40meq of potassium. Admitted to [facility]. *DC/Admit/Observation/Transfer Diagnosis at time of Disposition: Thyroid mass, Hypokalemia due to loss of potassium - Discharge Dispostion Condition at time of disposition: Guarded
[2017-06-08] MEDS ORDERED: ENOXAPARIN NA (PORCINE) 100 MG/1 ML DISP.SYRIN SQ SCH (14:00)
[2017-06-08 14:16] LABS: BASOPHIL 0.1 % (0-2.0); EOSINOPHIL 0.9 % (0-4.5); MCH 33.1 pg (25.7-33.7); MCHC 34.5 g/dl (32.0-35.9); MEAN CELL VOLUME 95.8 fl (80-96); MEAN PLT VOLUME 7.7 fl (7.5-11.1); NEUTROPHILS 67.3 % (42.8-82.8); PLATELET COUNT 243 K/MM3 (134-434); RDW 14.6 % (11.9-15.9); WHITE BLOOD COUNT 8.1 K/mm3 (4.0-10.0)
--- NOTE | 2017-06-08 14:31 | EKG ---
Test Reason : Blood Pressure : / mmHG Vent. Rate : 071 BPM Atrial Rate : 071 BPM P-R Int : 176 ms QRS Dur : 146 ms QT Int : 454 ms P-R-T Axes : 007 -67 -18 degrees QTc Int : 493 ms SINUS RHYTHM WITH OCCASIONAL WITH OCCASIONAL VENTRICULAR AND SUPRAVENTRICULAR PREMATURE BEATS SUBOPTIMAL STUDY RIGHT BUNDLE BRANCH BLOCK LEFT ANTERIOR FASCICULAR BLOCK BIFASCICULAR BLOCK DIFFUSE ST-T ABNORMALITIES ABNORMAL ECG WHEN COMPARED WITH ECG OF 22-JAN-2017 19:54, PREMATURE VENTRICULAR COMPLEXES ARE NOW PRESENT FOLLOW UP TRACING IS RECOMMENDED Confirmed by ENDER CHANDLER MD ([id number]) on 06/08/2017 2:30:35 PM Referred By: Confirmed By:ENDER CHANDLER MD
[2017-06-08 14:34] LABS: INR 1.19 (0.82-1.09); PROTHROMBIN TIME (PATIENT) 13.1 SEC (9.98-11.88)
[2017-06-08 14:37] LABS: ACTIVATED PTT 54.6 SECONDS (26.9-34.4)
[2017-06-08 14:46] LABS: ALBUMIN 3.4 g/dl (3.4-5.0); ALK PHOS 59 U/L (45-117); ANION GAP 11 (8-16); BILIRUBIN,TOTAL 0.8 mg/dL (0.2-1.0); CALCIUM 9.1 mg/dL (8.5-10.1); CO2 28 mmol/L (21-32); CREATININE 1.3 mg/dL (0.7-1.3); GLUCOSE,RANDOM 128 mg/dL (74-106); MAGNESIUM 1.6 mg/dL (1.8-2.4); SGOT/AST 29 U/L (15-37); SGPT/ALT 37 U/L (12-78); TOT PROT 6.2 g/dl (6.4-8.2)
[2017-06-08] MEDS ORDERED: POTASSIUM CHLORIDE TABS 20 MEQ TABLET.ER (FP) PO ONE (15:12)
[2017-06-08] MEDS ORDERED: POTASSIUM CHLORIDE ORAL LIQUID 20 MEQ/15 ML PO ONE (15:21)
[2017-06-08] MEDS ORDERED: POTASSIUM CHLORIDE ORAL LIQUID 20 MEQ/15 ML ONE (17:46)
[2017-06-08] MEDS: ENOXAPARIN NA (PORCINE) 100 MG/1 ML DISP.SYRIN SQ SCH (21:35)
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
[2017-06-09 08:09] LABS: BASOPHIL 0.7 % (0-2.0); EOSINOPHIL 2.2 % (0-4.5); MCH 32.9 pg (25.7-33.7); MEAN CELL VOLUME 96.9 fl (80-96); MEAN PLT VOLUME 7.8 fl (7.5-11.1); NEUTROPHILS 60.1 % (42.8-82.8); PLATELET COUNT 211 K/MM3 (134-434); RDW 14.7 % (11.9-15.9); WHITE BLOOD COUNT 5.5 K/mm3 (4.0-10.0)
[2017-06-09 08:47] LABS: ALBUMIN 2.8 g/dl (3.4-5.0); ANION GAP 9 (8-16); CALCIUM 8.8 mg/dL (8.5-10.1); CO2 29 mmol/L (21-32); GLUCOSE,RANDOM 108 mg/dL (74-106)
[2017-06-09 08:50] LABS: ALK PHOS 53 U/L (45-117); BILIRUBIN,TOTAL 0.6 mg/dL (0.2-1.0); CREATININE 1.1 mg/dL (0.7-1.3); SGOT/AST 23 U/L (15-37); SGPT/ALT 32 U/L (12-78); TOT PROT 5.5 g/dl (6.4-8.2)
[2017-06-09] MEDS ORDERED: MAGNESIUM SULF 50% (8.12 MEQ/2 ML-1 GM VIAL) IVPB ONE (09:00)
[2017-06-09] MEDS: POTASSIUM CHLORIDE TABS 20 MEQ TABLET.ER (FP) PO SCH (09:31)
[2017-06-09] MEDS: LISINOPRIL 20 MG TABLET (FP) PO SCH ×2 (09:31→09:39)
[2017-06-09] MEDS: HYDROCHLOROTHIAZIDE 12.5 MG CAPSULE (FP) PO SCH ×2 (09:31→09:40)
[2017-06-09] MEDS: ENOXAPARIN NA (PORCINE) 100 MG/1 ML DISP.SYRIN SQ SCH ×2 (09:31→21:01)
[2017-06-09] MEDS: amLODIPine BESYLATE 10 MG TABLET (FP) PO SCH ×2 (09:31→09:40)
[2017-06-09] MEDS: ATENOLOL 50 MG TABLET (FP) PO SCH ×2 (09:32→09:39)
[2017-06-10 08:06] LABS: ANION GAP 8 (8-16); CALCIUM 8.9 mg/dL (8.5-10.1); CO2 25 mmol/L (21-32); GLUCOSE,RANDOM 129 mg/dL (74-106); MAGNESIUM 2.1 mg/dL (1.8-2.4)
[2017-06-10 08:08] LABS: CREATININE 1.1 mg/dL (0.7-1.3)
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
[2017-06-10] MEDS: amLODIPine BESYLATE 10 MG TABLET (FP) PO SCH (09:09)
[2017-06-10] MEDS: ATENOLOL 50 MG TABLET (FP) PO SCH (09:09)
[2017-06-10] MEDS: LISINOPRIL 20 MG TABLET (FP) PO SCH (09:09)
[2017-06-10] MEDS: HYDROCHLOROTHIAZIDE 12.5 MG CAPSULE (FP) PO SCH (09:09)
[2017-06-10] MEDS ORDERED: POTASSIUM CHLORIDE TABS 20 MEQ TABLET.ER (FP) PO ONE (09:15)
--- NOTE | 2017-06-10 10:43 | EKG ---
Test Reason : Blood Pressure : / mmHG Vent. Rate : 064 BPM Atrial Rate : 064 BPM P-R Int : 158 ms QRS Dur : 138 ms QT Int : 456 ms P-R-T Axes : 041 269 -29 degrees QTc Int : 470 ms SINUS RHYTHM WITH OCCASIONAL PREMATURE VENTRICULAR COMPLEXES AND PREMATURE ATRIAL COMPLEXES RIGHT BUNDLE BRANCH BLOCK ABNORMAL ECG WHEN COMPARED WITH ECG OF 08-JUN-2017 14:15, PREMATURE VENTRICULAR COMPLEXES ARE NOW PRESENT PREMATURE ATRIAL COMPLEXES ARE NOW PRESENT NONSPECIFIC T WAVE ABNORMALITY HAS REPLACED INVERTED T WAVES IN ANTERIOR LEADS Confirmed by BEN REED MD ([id number]) on 06/10/2017 10:43:00 AM Referred By: MAMTA PLASCENCIA Confirmed By:BEN REED MD
[2017-06-10] MEDS: POTASSIUM CHLORIDE TABS 20 MEQ TABLET.ER (FP) PO SCH (13:34)
--- NOTE | 2017-06-10 19:50 | CONSULT ---
Consult Consult Specialty:: Surgery Reason for Consultation:: Thyroid goiter with airway compression. - History of Present Illness Chief Complaint: Patient is a 67 year old man who has recently, persistent cough , and is found to have a thyroid goiter , extending into the upper mediastinum. - History Source History Provided By: Patient Limitations to Obtaining History: Language Barrier - Past Medical History Cardio/Vascular: Yes: Deep Vein Thrombosis, HTN, Hyperlipdemia Pulmonary: Yes: Pulmonary Embolus Musculoskeletal: Yes: Other (H/O injury and fracture of right ankle reapired, as well as injury to right shoulder with paralysis/ weakness of right arm.) - Past Surgical History Additional Surgical History: Surgery on right ankle and right shoulder for fracture. - Alcohol/Substance Use Hx Alcohol Use: No - Smoking History Smoking history: Never smoked Have you smoked in the past 12 months: No - Social History ADL: Independent History of Recent Travel: No Home Medications - Allergies Allergies/Adverse Reactions: Allergies Allergy/AdvReac Type Severity Reaction Status Date / Time No Known Allergies Allergy Verified 06/08/17 13:02 - Home Medications Home Medications: Ambulatory Orders Amlodipine Besylate 10 mg PO DAILY 01/22/17 Atenolol [Tenormin -] 50 mg PO DAILY 01/22/17 Lisinopril/Hydrochlorothiazide [Lisinopril-Hctz 20-12.5 mg Tab] 1 each PO DAILY 01/22/17 Dabigatran Etexilate Mesylate [Pradaxa -] 150 mg PO BID 06/08/17 Review of Systems - Review of Systems Respiratory: reports: Cough Physical Exam Vital Signs: Vital Signs Temperature 97.8 F 06/10/17 14:00 Pulse Rate 65 06/10/17 14:00 Respiratory Rate 20 06/10/17 14:00 Blood Pressure 110/70 06/10/17 14:00 O2 Sat by Pulse Oximetry (%) 98 06/10/17 09:00 Labs: CBC, BMP 06/09/17 06:30 06/10/17 06:40 Imaging - Results Cat Scan: Report Reviewed, Image Reviewed Ultrasound: Report Reviewed, Image Reviewed (Thyromedaly, mainly left lobe , wrapped around the trachea, and extending down into the mediastinum , with tracheal compression. There is also some calcification.) Problem List - Problems (1) Thyromegaly Code(s): E01.0 - IODINE-DEFICIENCY RELATED DIFFUSE (ENDEMIC) GOITER (2) Mediastinal goiter Code(s): E04.8 - OTHER SPECIFIED NONTOXIC GOITER (3) Tracheal compression Code(s): J98.8 - OTHER SPECIFIED RESPIRATORY DISORDERS (4) Pulmonary embolism Code(s): I26.99 - OTHER PULMONARY EMBOLISM WITHOUT ACUTE COR PULMONALE Qualifiers: Pulmonary embolism type: other Chronicity: acute Acute cor pulmonale presence: without acute cor pulmonale Qualified Code(s): I26.99 - Other pulmonary embolism without acute cor pulmonale (5) Hypertension Code(s): I10 - ESSENTIAL (PRIMARY) HYPERTENSION Qualifiers: Hypertension type: essential hypertension Qualified Code(s): I10 - Essential (primary) hypertension Assessment/Plan is scheduled for thyroid FNA biopsy tomorrow. Will wait for results, Thyroidectomy later, will obtain thoracic surgery consult, ? standby.
--- NOTE | 2017-06-11 08:14 | PN ---
Progress Note (short form) - Note Progress Note: No SOB, NPO, off Pradaxa x [address] Hyatt consult appreciated. Vital Signs Temp 98.2 F 06/11/17 05:58 Pulse 65 06/11/17 05:58 Resp 20 06/11/17 05:58 BP 142/78 06/11/17 05:58 Pulse Ox 98 06/10/17 21:00 Intake & Output 06/10/17 06/10/17 06/11/17 11:59 23:59 11:59 Intake Total 1000 Balance 1000 Weight 189 lb 190 lb Intake: Oral 1000 Other: Voiding Method Toilet Toilet # Unmeasured Voids Void 2 2 1 Bowel Movement No No No # Bowel Movements 2 Weight Measurement Method Standing Scale Built in Bedscale Awake, alert, NAD Lungs are Clear. Heart S1s2 regular Abdomen soft, NT, obese. Ext-no CCE Laboratory Results - last 24 hr 06/10/17 20:00 PT with INR 11.00 INR 1.00 Current Active Problems Problem Status Diagnosed Epistaxis Acute Epistaxis, recurrent Acute Hyperlipidemia Acute Hypertension Acute Hypokalemia Acute Hypokalemia due to loss of potassium Acute Hypomagnesemia Acute Mediastinal goiter Acute Occlusion of right popliteal artery Acute Pleural effusion Acute Pulmonary arterial hypertension Acute Pulmonary embolism Acute Pulmonary embolism and infarction Acute Retrosternal goiter Acute Substernal thyroid Acute Thyroid mass Acute Thyromegaly Acute Tracheal compression Acute Plan D/c home post Thyroid biopsy. F/u at the office. After Biopsy result will need surgery Problem List - Problems (1) Hypokalemia due to loss of potassium Code(s): E87.6 - HYPOKALEMIA (2) Hypomagnesemia Code(s): E83.42 - HYPOMAGNESEMIA (3) Retrosternal goiter Code(s): E04.9 - NONTOXIC GOITER, UNSPECIFIED (4) Pulmonary embolism and infarction Code(s): I26.99 - OTHER PULMONARY EMBOLISM WITHOUT ACUTE COR PULMONALE
--- NOTE | 2017-06-11 08:16 | DS ---
Physical Examination Vital Signs: Vital Signs Temperature 98.2 F 06/11/17 05:58 Pulse Rate 65 06/11/17 05:58 Respiratory Rate 20 06/11/17 05:58 Blood Pressure 142/78 06/11/17 05:58 O2 Sat by Pulse Oximetry (%) 98 06/10/17 21:00 Constitutional: Yes: No Distress, Anxious Eyes: Yes: Conjunctiva Clear, EOM Intact HENT: Yes: Atraumatic, Normocephalic Neck: Yes: Supple, Trachea Midline Respiratory: Yes: Regular, CTA Bilaterally Gastrointestinal: Yes: Normal Bowel Sounds, Soft, Abdomen, Obese ...Rectal Exam: Yes: Deferred Renal/: No: Anuria Breast(s): Yes: WNL Musculoskeletal: No: Joint Stiffness, Joint Swelling Extremities: No: Amputation, Calf Tenderness, Cold, Cool, Cyanosis Edema: No Peripheral Pulses WNL: Yes Integumentary: Yes: WNL Neurological: Yes: WNL ...Motor Strength: WNL Psychiatric: Yes: WNL Labs: CBC, BMP 06/09/17 06:30 06/10/17 06:40 Discharge Summary Reason For Visit: ROSTROSTEINAL THYROID GLAND , previous PE Current Active Problems Epistaxis (Acute) Epistaxis, recurrent (Acute) Hyperlipidemia (Acute) Hypertension (Acute) Hypokalemia (Acute) Hypokalemia due to loss of potassium (Acute) Hypomagnesemia (Acute) Mediastinal goiter (Acute) Occlusion of right popliteal artery (Acute) Pleural effusion (Acute) Pulmonary arterial hypertension (Acute) Pulmonary embolism (Acute) Pulmonary embolism and infarction (Acute) Retrosternal goiter (Acute) Substernal thyroid (Acute) Thyroid mass (Acute) Thyromegaly (Acute) Tracheal compression (Acute) Condition: Good - Instructions Referrals: Kevin Jennings MD [Primary Care Provider] - Disposition: HOME - Home Medications Comprehensive Discharge Medication List: Ambulatory Orders Amlodipine Besylate 10 mg PO DAILY 01/22/17 Atenolol [Tenormin -] 50 mg PO DAILY 01/22/17 Lisinopril/Hydrochlorothiazide [Lisinopril-Hctz 20-12.5 mg Tab] 1 each PO DAILY 01/22/17 Dabigatran Etexilate Mesylate [Pradaxa -] 150 mg PO BID 06/08/17
[2017-06-11 09:57] LABS: ANION GAP 9 (8-16); CALCIUM 8.5 mg/dL (8.5-10.1); CO2 25 mmol/L (21-32); CREATININE 0.9 mg/dL (0.7-1.3); GLUCOSE,RANDOM 119 mg/dL (74-106)
[2017-06-11] MEDS: HYDROCHLOROTHIAZIDE 12.5 MG CAPSULE (FP) PO SCH (12:19)
[2017-06-11] MEDS: POTASSIUM CHLORIDE TABS 20 MEQ TABLET.ER (FP) PO SCH (12:19)
[2017-06-11] MEDS: LISINOPRIL 20 MG TABLET (FP) PO SCH (12:19)
[2017-06-11] MEDS: ATENOLOL 50 MG TABLET (FP) PO SCH (12:19)
[2017-06-11] MEDS: amLODIPine BESYLATE 10 MG TABLET (FP) PO SCH (12:19)
--- NOTE | 2017-06-11 13:21 | PN ---
Progress Note, Physician - Current Medication List Current Medications: Active Medications Amlodipine Besylate (Norvasc -) 10 mg PO DAILY [facility] Last Admin: 06/11/17 12:19 Dose: 10 mg Atenolol (Tenormin -) 50 mg PO DAILY [facility] Last Admin: 06/11/17 12:19 Dose: 50 mg Hydrochlorothiazide (Hctz -) 12.5 mg PO DAILY [facility] Last Admin: 06/11/17 12:19 Dose: 12.5 mg Lisinopril (Prinivil) 20 mg PO DAILY [facility] Last Admin: 06/11/17 12:19 Dose: 20 mg Potassium Chloride (K-Dur -) 40 meq PO DAILY [facility] Last Admin: 06/11/17 12:19 Dose: 40 meq - Objective Vital Signs: Vital Signs Temperature 98.2 F 06/11/17 05:58 Pulse Rate 65 06/11/17 05:58 Respiratory Rate 20 06/11/17 05:58 Blood Pressure 142/78 06/11/17 05:58 O2 Sat by Pulse Oximetry (%) 98 06/10/17 21:00 Labs: CBC, BMP 06/09/17 06:30 06/11/17 08:30 INR, PTT INR 1.00 (0.82-1.09) 06/10/17 20:00 Problem List - Problems (1) Thyromegaly Code(s): E01.0 - IODINE-DEFICIENCY RELATED DIFFUSE (ENDEMIC) GOITER (2) Mediastinal goiter Code(s): E04.8 - OTHER SPECIFIED NONTOXIC GOITER (3) Tracheal compression Code(s): J98.8 - OTHER SPECIFIED RESPIRATORY DISORDERS (4) Pulmonary embolism Code(s): I26.99 - OTHER PULMONARY EMBOLISM WITHOUT ACUTE COR PULMONALE Qualifiers: Pulmonary embolism type: other Chronicity: acute Acute cor pulmonale presence: without acute cor pulmonale Qualified Code(s): I26.99 - Other pulmonary embolism without acute cor pulmonale (5) Hypertension Code(s): I10 - ESSENTIAL (PRIMARY) HYPERTENSION Qualifiers: Hypertension type: essential hypertension Qualified Code(s): I10 - Essential (primary) hypertension Assessment/Plan Surgery: Patient had FNA of the thyroid today. Will wait for ctology report. CT and ultrasound was reviewed with Dr. Vee. The nodule on the left is just below the clavicle and is accessible from the neck. Patient will be discharged and brought back electively for thyroidectomy, removal of mediadastinal goiter. Patient was explained . He will be followed in the office.
[2017-06-11 13:27] VITALS: TEMP 97.5
[2017-06-11 13:28] VITALS: BP 118/80; PULSE 72
--- NOTE | 2017-06-14 14:18 | PATH ---
Cytology Non-Gynecological Report Patient Name: WINTER PRIETO [facility]. Rec. #: [id number] /Age/Gender: 1950 (Age: 67) / M Account: [id number] Location: [address] [place] [address] Taken: 06/11/2017 Received: 06/11/2017 Reported: 06/14/2017 Physicians: Arielle Plascencia M.D. Prakashchandra Rao, M.D. Specimen(s) Received LEFT THYROID FNA Clinical History Left thyroid nodule, 4.0 x 3.82 x 3.73 cm Final Diagnosis THYROID GLAND, LEFT LOBE, US GUIDED FINE NEEDLE ASPIRATION BIOPSY: SATISFACTORY FOR EVALUATION. NO MALIGNANT CELLS IDENTIFIED. CONSISTENT WITH NODULAR HYPERPLASIA (BETHESDA CATEGORY II, BENIGN), SEE COMMENT. Comment: The smears and the cell block show clusters of bland appearing follicular epithelial cells arranged in mixed macro-and microfollicles and flat sheets. Colloid is present. Electronically Signed Darrius Lua M.D. Gross Description Received are four air dried smears, four smears in 95% alcohol, and 20 cc of bloody fluid in formalin. Four diff-quik stained slides, four Pap stained slides and one cell block are made.
== END 2017-06-11 13:28 | disposition home or self-care (01) | DRG 424 ==
LOC: JER 12:54 → JERBED 14:33 → J6S 20:43
PROVIDERS: ADMIT Internal Medicine; ATTEND Internal Medicine
PROC: 0GBG3ZX Excision of Left Thyroid Gland Lobe, Percutaneous Approach, Diagnostic (ICD-10-PCS; principal; 2017-06-11)
DX: E04.9 Nontoxic goiter, unspecified (principal); E87.6 Hypokalemia; Z86.711 Personal history of pulmonary embolism; Z79.01 Long term (current) use of anticoagulants; I10 Essential (primary) hypertension; E78.5 Hyperlipidemia, unspecified; Z86.718 Personal history of other venous thrombosis and embolism; E83.42 Hypomagnesemia; E66.9 Obesity, unspecified; Z68.30 Body mass index [BMI] 30.0-30.9, adult
CPT/HCPCS: 36415; 60100; 71020-TC; 71270-TC; 76942-TC; 80048; 80053; 83735; 85025; 85610; 85730; 86850; 86900; 86901; 88305-TC; 93005; 93010; 93306-TC; 99283-25

== ENCOUNTER 2017-08-06 06:17 | Inpatient (IN) | payer OTHER ==
[2017-08-03 11:07] VITALS: BMI 32.3
[2017-08-06] MEDS ORDERED: LIDOCAINE HCL 2% (20ML MULTI-DOSE VIAL) NR ONE (07:03)
[2017-08-06] MEDS ORDERED: DESFLURANE GAS 240 ML BOTTLE IH ONE (07:03)
[2017-08-06] MEDS ORDERED: LIDOCAINE HCL 1%, 10 MG/ML (20ML VIAL) ONE (07:03)
[2017-08-06] MEDS ORDERED: LIDOCAINE HCL 4% PRESERVE-FREE 5 ML AMP ONE (07:03)
[2017-08-06] MEDS ORDERED: fentaNYL CITRATE 250 MCG/5 ML VIAL ONE (07:37)
[2017-08-06] MEDS ORDERED: PROPOFOL 20 ML ONE ×2 (07:38)
[2017-08-06] MEDS ORDERED: MIDAZOLAM HCL 2 MG/2 ML SINGLE DOSE VIAL ONE ×2 (07:39)
[2017-08-06] MEDS ORDERED: SUCCINYLCHOLINE CHLORIDE 200 MG/10 ML VIAL ONE (07:39)
[2017-08-06] MEDS ORDERED: ePHEDrine SULFATE 50 MG/1 ML AMPULE ONE ×2 (07:40→07:44)
--- NOTE | 2017-08-06 07:41 | HP ---
History & Physical Update - History History: No Change - Physical Physical: No Change - Assessment Assessment: No Change - Plan Plan: No Change
[2017-08-06] MEDS ORDERED: LIDOCAINE 1%/EPI 1:100000 (20 ML MULTI DOSE VIAL) ONE (07:50)
[2017-08-06] MEDS ORDERED: ACETAMINOPHEN INJECTION 100 ML IVPB ONE (09:44)
[2017-08-06] MEDS ORDERED: LIDOCAINE 1%/EPI 1:100000 (20 ML MULTI DOSE VIAL) IJ ONE (09:44)
[2017-08-06] MEDS ORDERED: ONDANSETRON 4 MG/2 ML VIAL ONE (10:22)
[2017-08-06] MEDS ORDERED: PROMETHAZINE HCL 25 MG/1 ML VIAL IVPUSH PRN (12:06)
[2017-08-06] MEDS ORDERED: ONDANSETRON 4 MG/2 ML VIAL IVPUSH PRN (12:06)
--- NOTE | 2017-08-06 12:10 | OP ---
Operative Note - Note: Operative Date: 08/06/17 Pre-Operative Diagnosis: Mediastinal thyroid goiter, with airway obstruction, ( tracheal compression ), thyromegaly. Operation: Removal of mediastinal goiter of left lobe of thyroid , cervical approach,. Subtotal thyroidectomy ( left total lobectomy, isthmusectomy, and removal of inferior pole of right lobe of thyroid). Use of Nervana nerve monitor, and cranial nerve monitoring, bilateral.. Findings: Large nodule , on the inferior aspect of the left lobe of thyroid, within the mediastinum. Multiple nodules , on the isthmus, and inferior pole of the right lobe of thyroid. Post-Operative Diagnosis: Other (Multinodular thyroid goiter, a large mediastinal goiter of the left lobe of thyroid, with tracheal compression.) Surgeon: Gato Hyatt Honing Machine Operator: Kasey Rodriguez Anesthesiologist/EXPERIMENTAL ELECTRONICS DEVELOPER: Isaac Ford I Anesthesia: General Specimens Removed: 1) Left lobe of thyoid with mediastinal component,. 2) nodule on the isthmus of the thyroid,. 3) Lower pole of the right lobe of thyroid with multiple nodules. Estimated Blood Loss (mls): 50 Drains & Tubes with Location: [place] drain no.10 Operative Report Dictated: Yes
[2017-08-06] MEDS ORDERED: LACTATED RINGERS SOLUTION 1,000 ML IV SCH (12:15)
[2017-08-06] MEDS ORDERED: IBUPROFEN 200 MG TABLET PO PRN (12:28)
--- NOTE | 2017-08-06 13:24 | SURG ---
Surgery Manager Lab Note Manager Lab: Kasey Rodriguez PA-C Date of Service: 08/06/17 Diagnosis: Mediastinal thyroid goiter, with airway obstruction, ( tracheal compression ), thyromegaly. Procedure: Removal of mediastinal goiter of left lobe of thyroid , cervical approach,. Subtotal thyroidectomy ( left total lobectomy, isthmusectomy, and removal of inferior pole of right lobe of thyroid). Use of Nervana nerve monitor, and cranial nerve monitoring, bilateral.. I was present for the entirety of the operative procedure. For further detail, please refer to operative report. Visit type - Case Type Case Type: Scheduled Admission - Emergency Emergency Visit: No - New patient This patient is new to me today: Yes Date on this admission: 08/06/17
[2017-08-06] MEDS: SODIUM CHLORIDE 1,000 ML IV SCH ×2 (13:30→22:53)
--- NOTE | 2017-08-06 13:59 | PN ---
Progress Note, Physician Chief Complaint: 67 y.o patient had today subtotal thyroidectomy by Dr. Hyatt under [place]. The patient was discussed with Dr. Hyatt. History of Present Illness: B/l Pulmonary embolism 2017- now on NOAC. Subsequent CT chest showed resolution of PE. HTN MNG , including left substernal mass with tracheal compression. Accident at the job 10 yrs ago with injury of the right ankle and and the right shoulder. - Current Medication List Current Medications: Active Medications Fentanyl (Sublimaze Injection -) 50 mcg IVPUSH [id number] PRN PRN Reason: PAIN Lactated Ringer's (Lactated Ringers Solution) 1,000 mls @ 125 mls/hr IV ASDIR LILA Sodium Chloride (Normal Saline -) 1,000 mls @ 42 mls/hr IV ASDIR LILA Last Admin: 08/06/17 13:30 Dose: 0 mls Ibuprofen (Advil -) 200 mg PO Q6H PRN PRN Reason: PAIN Ondansetron HCl (Zofran Injection) 4 mg IVPUSH Q6H PRN PRN Reason: NAUSEA AND/OR VOMITING Oxycodone/Acetaminophen (Percocet 5/325 -) 1 combo PO Q6H PRN PRN Reason: PAIN LEVEL 1-5 Pantoprazole Sodium (Protonix -) 40 mg PO DAILY LILA Promethazine HCl (Phenergan Injection -) 12.5 mg IVPUSH Q6H PRN PRN Reason: NAUSEA-FOR RESCUE AFTER 15 MIN - Objective Vital Signs: Vital Signs Temperature 97.7 F 08/06/17 13:30 Pulse Rate 54 L 08/06/17 13:30 Respiratory Rate 15 08/06/17 13:30 Blood Pressure 94/56 08/06/17 13:30 O2 Sat by Pulse Oximetry (%) 93 L 08/06/17 13:30 Constitutional: Yes: Anxious, Moderate Distress Eyes: Yes: Conjunctiva Clear, EOM Intact, PERRL. No: Ptosis, Sclera Icterus HENT: Yes: Atraumatic, Normocephalic. No: Drooling, Epistaxis Neck: Yes: Supple, Trachea Midline Cardiovascular: Yes: Regular Rate and Rhythm, S1, S2. No: Bradycardia, Tachycardia, JVD, Rub Respiratory: Yes: Regular, CTA Bilaterally, On Venti-Mask. No: Accessory Muscle Use, Cough, Rales, Rhonchi, Stridor, Wheezes Gastrointestinal: Yes: Soft, Abdomen, Obese. No: Ascites, Palpable Mass, Tenderness ...Rectal Exam: Yes: Deferred Genitourinary: No: Anuria, Bladder Distention Breast(s): Yes: WNL Musculoskeletal: No: Joint Stiffness, Joint Swelling Extremities: Yes: Other (SCD b/l). No: Amputation, Calf Tenderness, Cold, Cyanosis Edema: No Integumentary: Yes: Other (Neck drain. The wound is clean, no discharge.) Neurological: Yes: Alert, Oriented. No: Aphasia, Asterixis, Dysarthria, Unresponsive ...Motor Strength: WNL Psychiatric: Yes: Alert, Oriented. No: Agitated, Suicidal Ideation Labs: Laboratory Results - last 24 hr 08/06/17 07:41 Blood Type A POSITIVE Antibody Screen Negative Problem List - Problems (1) Hypertension Assessment/Plan: Off BP meds now. Will follow BP. When BP recovers after surgery will start meds. Code(s): I10 - ESSENTIAL (PRIMARY) HYPERTENSION Qualifiers: Hypertension type: essential hypertension Qualified Code(s): I10 - Essential (primary) hypertension (2) Mediastinal goiter Assessment/Plan: Status post subtotal thyroidectomy. Surgical follow up. Drain removal tomorrow. Will follow TFT. Will start Synthroid replacement therapy. Code(s): E04.8 - OTHER SPECIFIED NONTOXIC GOITER (3) Pulmonary embolism and infarction Assessment/Plan: Will restart Eliquis in 24 hrs when allowed by surgery if no contraindications from surgery Code(s): I26.99 - OTHER PULMONARY EMBOLISM WITHOUT ACUTE COR PULMONALE
[2017-08-06] MEDS ORDERED: oxyCODONE HCL 5 MG TABLET PO PRN (14:14)
[2017-08-06] MEDS ORDERED: ACETAMINOPHEN 325 MG TABLET (FP) PO PRN (14:14)
--- NOTE | 2017-08-06 15:42 | OP ---
DATE OF OPERATION: 08/06/2017 PREOPERATIVE DIAGNOSIS: 1. Large mediastinal thyroid goiter, enlarged left lobe of the thyroid with airway obstruction, tracheal compression and thyromegaly. 2. History of pulmonary embolism, pulmonary hypertension and valvular heart disease. POSTOPERATIVE DIAGNOSIS: Multinodular thyroid goiter in both lobes of the thyroid with a large mediastinal extension of the left lobe of the thyroid.. OPERATIVE PROCEDURE: 1. Removal of mediastinal goiter of the left lobe of the thyroid by cervical approach. 2. Subtotal thyroidectomy (left total lobectomy with removal of the mediastinal component, isthmusectomy and removal of the inferior pole of the right lobe of the thyroid gland). 3. Use of Nervana nerve monitoring device and bilateral recurrent laryngeal nerve monitoring. SURGEON: Sarai Hyatt MD FIBERGLASS BOAT BUILDER: TONY Rowland ANESTHESIA: General anesthesia. ANESTHESIOLOGIST: Jonathon Ford MD, with the use of the Nirvana endotracheal tube with appropriate tube and monitoring device. INDICATION: This 67-year-old man with a history of pulmonary embolism had difficulty breathing and was found to have a large mediastinal thyroid goiter with an enlarged left lobe of the thyroid with compression of the trachea. He had an FNA biopsy that was suggestive of nodular goiter. The patient was brought in for a thyroidectomy. The risks, benefits and complications have been extensively discussed with the patient and his . The patient had been on Lovenox and Pradaxa, which had been discontinued. He is followed by Dr. Kevin Jennings. Consent was obtained. OPERATIVE DESCRIPTION: The patient was brought to the operating room and given general anesthesia with the appropriate endotracheal tube for monitoring the recurrent laryngeal nerve using the Nervana nerve monitoring device. The neck was placed in extension, painted and draped. A time-out was called. A horizontal skin incision was made one fingerbreadth above the clavicle from one sternocleidomastoid muscle to the other. This was deepened to incise the skin, subcutaneous tissue and the platysma muscle. Superior and inferior skin flaps were then raised, between the platysma and the deep cervical fascia. The flaps was then raised, superiorly upto the hyoid bone, and inferiorly anterior to and above the clavicle on either side. The sternocleidomastoid muscle was also freed from the flap on either side. The strap muscles were then divided in the midline from the hyoid bone to the suprasternal notch. Bleeding vessels were controlled using electrocautery or the LigaSure or 3-0 silk ligatures, throughout the procedure. Once the strap muscles were divided, the left lower thyroid gland was exposed. Most of the left lobe, and the large nodule was within the mediastinum , below the clavicle. The strap muscles were retracted and the gland was freed from the surrounding structures. It was gradually brought into the neck, with gentle traction and with a finger, out of the mediastinum. The gland was delivered into the wound. There was hemorrhage within the left lobe, and the inferior pole of the left lobe of the thyroid gland, giving it a dark red appearance. There was also a nodule on the isthmus of the thyroid. This was carefully and it was divided, from the right lobe of the thyroid gland, placing two clamps, and dividing between two clamps. The left lobe of the thyroid gland was then mobilized. The superior thyroid vessels were divided as close to the gland as possible between hemoclips, the LigaSure and 3- 0 silk ligatures. The left superior and inferior parathyroid glands were identified and preserved with their blood supply intact, dissecting between the thyroid and the parathyroid gland. The middle thyroid vein was also divided between clips and the LigaSure. The inferior thyroid glands were divided as close to the gland as possible using, the LigaSure and 3-0 silk sutures. The parathyroids on both sides were preserved. The left recurrent laryngeal nerve was identified and followed all along its course into the cricothyroid muscle, with appropriate response to stimulation with the Nervana nerve monitoring device. The Arrington's ligament was also divided between ligatures. The gland was then mobilized towards the midline , and to the right , across the pretracheal fascial plane. The isthmus with i nodule, as well as the left lobe of the thyroid gland which was significantly enlarged, was sent to Pathology for evaluation. Frozen section was deferred as this was thought to be a multinodular thyroid goiter. Once this was done, the right lobe of the thyroid gland was inspected. There were multiple nodules in the lower pole and the body of the right lobe of the thyroid gland. The right lobe of the thyroid gland was then mobilized, dividing the inferior thyroid vessels as close to the gland as possible. The recurrent laryngeal nerve was identified and preserved, throughout its course with an appropriate response to stimulation with the Nervana nerve monitoring device. The upper pole of the right lobe of the thyroid gland was normal and left intact with it blood supply. After mobilizing the right lobe of the thyroid gland adequately, a Shital clamp was placed beyond the nodule within the right lobe of the thyroid gland, over the normal-appearing thyroid gland. The inferior pole of the right lobe of the thyroid gland was then divided and sent to Pathology. This contained multiple nodules. The normal right lobe of the thyroid gland, was then oversewn with continuous 3-0 Vicryl sutures, followed by 3-0 Vicryl sutures in a running locking fashion, thus maintaining hemostasis. At the completion of the procedure, both recurrent laryngeal nerves responded appropriately to stimulation, confirming the integrity of the nerve. Hemostasis was ensured . A no. 10 David-Lucero drain was left in the wound, through a stab wound on the left side of the neck and through the sternocleidomastoid muscle. Hemostasis was satisfactory at the completion of the procedure. The wound was irrigated. It was then closed, approximating the strap muscles with interrupted 3-0 Vicryl sutures and approximating the platysma with buried interrupted 3-0 Vicryl sutures. The skin was approximated with continuous 3-0 Monocryl sutures in a running subcuticular fashion. The drain was anchored at its exit from the skin with 3-0 Prolene sutures. The drain was then connected to the bulg "grenade". The instrument ans sponge count was correct, at the completion of the procedure. Dermabond was applied to close the skin edges. The patient tolerated the procedure well, was extubated and sent to the recovery room in satisfactory and stable condition. He was talking appropriately in the recovery room with a normal voice. Estimated blood loss 50 mL. Arielle [id number] cc: MD HEATHER Chiu
--- NOTE | 2017-08-06 16:25 | CONSULT ---
Consultation: REQUESTING PROVIDER: CONSULT REQUEST: We have been asked to medically evaluate this patient for post op care. HISTORY OF PRESENT ILLNESS: This is a 67 yo M with PMH of HTN, and B/l PE 2017(compliant on NOAC), thought to have been provoked by fracture, with resolution of last CT, who presents s/p uncomplicated subtotal thyroidectomy for MNG by Dr. Hyatt under general anesthesia. The MNG included a complonent of L substernal mass with tracheal compression. Patient is aao3, afebrile and hemodynamicallys table post op. he reports minimal throat pain, denies chest pain cough or palpitations. He is unable to urinate, bladder scan shows 480 cc urine, agrees to straight cath. REVIEW OF SYSTEMS: CONSTITUTIONAL: Absent: fever, chills, diaphoresis HEENT: Absent: rhinorrhea, nasal congestion, throat swelling, difficulty swallowin CARDIOVASCULAR: Absent: chest pain, syncope, palpitations, irregular heart rate, lightheadedness , peripheral edema RESPIRATORY: Absent: cough, shortness of breath GASTROINTESTINAL: Absent: abdominal pain, abdominal distension, nausea, vomiting GENITOURINARY: Absent: dysuria MUSCULOSKELETAL: Absent: back pain, neck pain SKIN: Absent: rash, itching, pallor HEMATOLOGIC/IMMUNOLOGIC: Absent: frequent infections ENDOCRINE: Absent: unexplained weight gain, unexplained weight loss, heat intolerance, cold intolerance NEUROLOGIC: Absent: headache, focal weakness or paresthesias PSYCHIATRIC: Absent: anxiety, depression PHYSICAL EXAMINATION Vital Signs - 24 hr 08/06/17 08/06/17 08/06/17 06:54 11:50 12:00 Temperature 97.7 F 97.7 F Pulse Rate 53 L 63 61 Respiratory 18 13 10 L Rate Blood Pressure 135/70 125/81 126/72 O2 Sat by Pulse 98 95 95 Oximetry (%) 08/06/17 08/06/17 08/06/17 12:15 12:30 12:45 Temperature Pulse Rate 63 62 56 L Respiratory 18 14 18 Rate Blood Pressure 124/72 110/67 111/61 O2 Sat by Pulse 96 95 95 Oximetry (%) 08/06/17 08/06/17 08/06/17 13:00 13:15 13:30 Temperature 97.7 F Pulse Rate 55 L 58 L 54 L Respiratory 15 15 15 Rate Blood Pressure 103/69 100/61 94/56 O2 Sat by Pulse 93 L 93 L 93 L Oximetry (%) 08/06/17 08/06/17 14:19 14:58 Temperature 98.4 F Pulse Rate 61 Respiratory 16 Rate Blood Pressure 89/56 O2 Sat by Pulse 96 Oximetry (%) GENERAL: Awake, alert, and fully oriented, in no acute distress. HEAD: Normal with no signs of trauma. EYES: Pupils equal, round and reactive to light, extraocular movements intact, sclera anicteric, conjunctiva clear. No lid lag. EARS, NOSE, THROAT: Moist mucous membranes. NECK: Normal range of motion, supple without JVD, clean surgical scar LUNGS: Breath sounds equal, clear to auscultation bilaterally. HEART: Regular rate and rhythm, normal S1 and S2 ABDOMEN: Soft, nontender, not distended, normoactive bowel sounds MUSCULOSKELETAL: Normal range of motion at all joints. No bony deformities or tenderness. No CVA tenderness. UPPER EXTREMITIES: 2+ pulses, warm, well-perfused. No cyanosis. No clubbing. Cap refill <2 seconds. No peripheral edema. LOWER EXTREMITIES: 2+ pulses, warm, well-perfused. No calf tenderness. No peripheral edema. NEUROLOGICAL: Cranial nerves II-XII intact. Normal speech. Normal gait. PSYCHIATRIC: Cooperative. Good eye contact. Appropriate mood and affect. SKIN: Warm, dry, normal turgor, no rashes or lesions noted. Laboratory Results - last 24 hr 08/06/17 07:41 Blood Type A POSITIVE Antibody Screen Negative Active Medications Generic Name Dose Route Start Last Admin Trade Name Freq PRN Reason Stop Dose Admin Acetaminophen 325 mg 08/06/17 14:14 08/06/17 14:53 Tylenol - PO 325 mg Q6H PRN Administration FEVER OR PAIN Fentanyl 50 mcg 08/06/17 12:06 Sublimaze Injection - IVPUSH [id number] PRN PAIN Lactated Ringer's 1,000 mls @ 125 mls/hr 08/06/17 12:15 Lactated Ringers Solution IV ASDIR LILA Sodium Chloride 1,000 mls @ 42 mls/hr 08/06/17 12:30 08/06/17 13:30 Normal Saline - IV 0 mls ASDIR LILA Administration Ibuprofen 200 mg 08/06/17 12:28 Advil - PO Q6H PRN PAIN Ondansetron HCl 4 mg 08/06/17 12:06 Zofran Injection IVPUSH Q6H PRN NAUSEA AND/OR VOMITING Oxycodone HCl 5 mg 08/06/17 14:14 Roxicodone - PO Q6H PRN Pantoprazole Sodium 40 mg 08/07/17 10:00 Protonix - PO DAILY [facility] Polyethylene Glycol 17 gm 08/06/17 14:15 Miralax (For Daily Use) - PO BID L[facility] Promethazine HCl 12.5 mg 08/06/17 12:06 Phenergan Injection - IVPUSH Q6H PRN NAUSEA-FOR RESCUE AFTER 15 MIN ASSESSMENT/PLAN: This is a 67 yo M with PMH of HTN, and B/l PE 2016(compliant on NOAC), thought to have been provoked by fracture, with resolution of last CT, who presents s/p uncomplicated subtotal thyroidectomy for MNG by Dr. Hyatt under general anesthesia. Neuro -aaox3 CV -stable Pulm -stable CV *HTN -resume lisinopril 20, HCTX 12.5, amlodipine 10 daily -hold atenolol Endocrine *MNG day 0 s/p subtotal thyroidectomy -f/u cbc, cmp, TFT's -gentle IV hydration -start synthroid based on TFT's -resume NOAC 24 hr post op -urinary retention s/p hill removal -straight cath -void check -consider flomax FEN -NS @ 42 -f/u lytes -regular diet ppx: scds, resume noac tomorrow Dispo: We will continue to follow the patient. Thank you for this consultative opportunity. Problem List - Problems (1) S/P thyroidectomy Code(s): E89.0 - POSTPROCEDURAL HYPOTHYROIDISM (2) HTN (hypertension) Code(s): I10 - ESSENTIAL (PRIMARY) HYPERTENSION (3) Mediastinal goiter Code(s): E04.8 - OTHER SPECIFIED NONTOXIC GOITER (4) Thyroid mass Code(s): E07.9 - DISORDER OF THYROID, UNSPECIFIED (5) Thyromegaly Code(s): E01.0 - IODINE-DEFICIENCY RELATED DIFFUSE (ENDEMIC) GOITER (6) Tracheal compression Code(s): J98.8 - OTHER SPECIFIED RESPIRATORY DISORDERS Visit type - Emergency Visit Emergency Visit: No - New Patient This patient is new to me today: Yes Date on this admission: 08/06/17 - Critical Care Critical Care patient: Yes Total Critical Care Time (in minutes): 35 Critical Care Statement: The care of this patient involved high complexity decision making to prevent further life threatening deterioration of the patient 's condition and/or to evaluate & treat vital organ system(s) failure or risk of failure.
[2017-08-06] MEDS ORDERED: SODIUM CHLORIDE 500 ML IV STA (18:24)
[2017-08-06 18:50] LABS: MCH 32.7 pg (25.7-33.7); MCHC 33.8 g/dl (32.0-35.9); MEAN CELL VOLUME 96.7 fl (80-96); MEAN PLT VOLUME 8.4 fl (7.5-11.1); PLATELET COUNT 263 K/MM3 (134-434); RDW 14.5 % (11.9-15.9); WHITE BLOOD COUNT 11.9 K/mm3 (4.0-10.0)
[2017-08-06 19:00] LABS: ALBUMIN 2.8 g/dl (3.4-5.0); ANION GAP 12 (8-16); CALCIUM 8.2 mg/dL (8.5-10.1); CO2 21 mmol/L (21-32); GLUCOSE,RANDOM 150 mg/dL (74-106); MAGNESIUM 1.5 mg/dL (1.8-2.4)
[2017-08-06 19:11] LABS: ALK PHOS 40 U/L (45-117); BILIRUBIN,TOTAL 0.9 mg/dL (0.2-1.0); CREATININE 0.8 mg/dL (0.7-1.3); PHOSPHOROUS 3.7 mg/dL (2.5-4.9); SGOT/AST 15 U/L (15-37); SGPT/ALT 22 U/L (12-78); THYROID STIMULATING HORMONE 0.33 uIU/ml (0.358-3.74); TOT PROT 5.4 g/dl (6.4-8.2)
[2017-08-06 22:11] LABS: CPK 59 IU/L (39-308); TROPONIN I < 0.02 ng/ml (0.00-0.05)
[2017-08-06 22:33] LABS: TOTAL CELLS COUNTED 100
[2017-08-06 22:34] LABS: PLATELET ESTIMATE ADEQUATE
[2017-08-06] MEDS: POLYETHYLENE GLYCOL 3350 119 GM BTL PO SCH (22:53)
[2017-08-07] MEDS ORDERED: IBUPROFEN 400 MG TABLET (FP) PO PRN (02:46)
[2017-08-07 06:20] LABS: BASOPHIL 0.2 % (0-2.0); MCHC 34.2 g/dl (32.0-35.9); MEAN CELL VOLUME 96.5 fl (80-96); MEAN PLT VOLUME 8.5 fl (7.5-11.1); NEUTROPHILS 84.9 % (42.8-82.8); PLATELET COUNT 274 K/MM3 (134-434); RDW 14.4 % (11.9-15.9); WHITE BLOOD COUNT 11.5 K/mm3 (4.0-10.0)
[2017-08-07 06:47] LABS: ALBUMIN 2.4 g/dl (3.4-5.0); ANION GAP 7 (8-16); CALCIUM 7.9 mg/dL (8.5-10.1); CO2 27 mmol/L (21-32); CREATININE 0.9 mg/dL (0.7-1.3); GLUCOSE,RANDOM 158 mg/dL (74-106); SGOT/AST 10 U/L (15-37); SGPT/ALT 18 U/L (12-78)
[2017-08-07 06:48] LABS: ALK PHOS 36 U/L (45-117); BILIRUBIN,TOTAL 0.7 mg/dL (0.2-1.0); TOT PROT 4.9 g/dl (6.4-8.2)
--- NOTE | 2017-08-07 08:06 | PN ---
Progress Note (short form) - Note Progress Note: Anesthesia post op Pt seen and examined S:alert and awake O: Vital Signs Temperature 98.4 F 08/07/17 06:00 Pulse Rate 64 08/07/17 06:00 Respiratory Rate 18 08/07/17 06:00 Blood Pressure 116/75 08/07/17 06:00 O2 Sat by Pulse Oximetry (%) 98 08/07/17 05:32 CBC, BMP 08/07/17 05:05 08/07/17 05:05 Current Active Problems A/P:HTN (hypertension) (Acute) S/P thyroidectomy (Acute) Doing well post op Continue current care Jose Ortega MD
--- NOTE | 2017-08-07 08:29 | PN ---
Progress Note, Physician Chief Complaint: Day 2 post subtotal thyroidectomy. Episode of vomiting last night. Episode of urinary retention requiring streight cath. History of Present Illness: B/l Pulmonary embolism 2017- now on NOAC. Subsequent CT chest showed resolution of PE. HTN MNG , including left substernal mass with tracheal compression. Accident at the job 10 yrs ago with injury of the right ankle and and the right shoulder. - Current Medication List Current Medications: Active Medications Acetaminophen (Tylenol -) 325 mg PO Q6H PRN PRN Reason: FEVER OR PAIN Last Admin: 08/06/17 14:53 Dose: 325 mg Amlodipine Besylate (Norvasc -) 10 mg PO DAILY [facility] Docusate Sodium (Colace Liquid -) 50 mg PO DAILY [facility]CLUDES [facility] Hydrochlorothiazide (Hctz -) 12.5 mg PO DAILY [facility]CLUDES [facility] Sodium Chloride (Normal Saline -) 1,000 mls @ 42 mls/hr IV ASDIR COUNT INCLUDES [facility] Last Admin: 08/06/17 22:53 Dose: Not Given Ibuprofen (Motrin -) 200 mg PO Q6H PRN PRN Reason: PAIN Lisinopril (Prinivil) 20 mg PO DAILY [facility]CLUDES [facility] Ondansetron HCl (Zofran Injection) 4 mg IVPUSH Q6H PRN PRN Reason: NAUSEA AND/OR VOMITING Last Admin: 08/06/17 22:53 Dose: 4 mg Oxycodone HCl (Roxicodone -) 5 mg PO Q6H PRN Pantoprazole Sodium (Protonix -) 40 mg PO DAILY [facility]CLUD[facility] Polyethylene Glycol (Miralax (For Daily Use) -) 17 gm PO BID [facility]CLUD[facility] Last Admin: 08/06/17 22:53 Dose: Not Given Promethazine HCl (Phenergan Injection -) 12.5 mg IVPUSH Q6H PRN PRN Reason: NAUSEA-FOR RESCUE AFTER 15 MIN Last Admin: 08/06/17 22:52 Dose: 12.5 mg - Objective Vital Signs: Vital Signs Temperature 98.4 F 08/07/17 06:00 Pulse Rate 64 08/07/17 06:00 Respiratory Rate 18 08/07/17 06:00 Blood Pressure 116/75 08/07/17 06:00 O2 Sat by Pulse Oximetry (%) 98 08/07/17 05:32 Constitutional: Yes: Anxious, Mild Distress Eyes: Yes: Conjunctiva Clear HENT: Yes: Atraumatic, Normocephalic. No: Drooling Neck: Yes: Supple, Trachea Midline, Other (OMNROE drain) Cardiovascular: Yes: Regular Rate and Rhythm. No: Bradycardia, Tachycardia, JVD Respiratory: Yes: Regular, CTA Bilaterally, On Venti-Mask. No: Cough Gastrointestinal: Yes: Normal Bowel Sounds, Soft, Abdomen, Obese ...Rectal Exam: Yes: Deferred Genitourinary: No: Anuria, Bladder Distention Breast(s): Yes: WNL Extremities: No: Calf Tenderness, Cold, Cyanosis Edema: No Integumentary: Yes: WNL Wound/Incision: Yes: Clean/Dry, Well Approximated, Open to air, Other (MONROE in place) Neurological: Yes: Alert, Oriented. No: Aphasia, Dysarthria ...Motor Strength: WNL Psychiatric: Yes: WNL Labs: CBC, BMP 08/07/17 05:05 08/07/17 05:05 Problem List - Problems (1) Hypertension Assessment/Plan: Off BP meds now. Will follow BP. When BP recovers after surgery will start meds. Code(s): I10 - ESSENTIAL (PRIMARY) HYPERTENSION Qualifiers: Hypertension type: essential hypertension Qualified Code(s): I10 - Essential (primary) hypertension (2) Mediastinal goiter Assessment/Plan: Status post subtotal thyroidectomy. Surgical follow up. Drain removal tomorrow. Will follow TFT. Will start Synthroid replacement therapy. Code(s): E04.8 - OTHER SPECIFIED NONTOXIC GOITER (3) Pulmonary embolism and infarction Assessment/Plan: Will restart Eliquis in 24 hrs when allowed by surgery if no contraindications from surgery Code(s): I26.99 - OTHER PULMONARY EMBOLISM WITHOUT ACUTE COR PULMONALE
--- NOTE | 2017-08-07 09:22 | PN ---
Progress Note, Physician - Current Medication List Current Medications: Active Medications Acetaminophen (Tylenol -) 325 mg PO Q6H PRN PRN Reason: FEVER OR PAIN Last Admin: 08/06/17 14:53 Dose: 325 mg Amlodipine Besylate (Norvasc -) 10 mg PO DAILY [facility] Docusate Sodium (Colace Liquid -) 50 mg PO DAILY [facility] Hydrochlorothiazide (Hctz -) 12.5 mg PO DAILY [facility] Sodium Chloride (Normal Saline -) 1,000 mls @ 42 mls/hr IV ASDIR [facility] Last Admin: 08/06/17 22:53 Dose: Not Given Ibuprofen (Motrin -) 200 mg PO Q6H PRN PRN Reason: PAIN Lisinopril (Prinivil) 20 mg PO DAILY [facility] Ondansetron HCl (Zofran Injection) 4 mg IVPUSH Q6H PRN PRN Reason: NAUSEA AND/OR VOMITING Last Admin: 08/06/17 22:53 Dose: 4 mg Oxycodone HCl (Roxicodone -) 5 mg PO Q6H PRN Pantoprazole Sodium (Protonix -) 40 mg PO DAILY [facility] Polyethylene Glycol (Miralax (For Daily Use) -) 17 gm PO BID [facility] Last Admin: 08/06/17 22:53 Dose: Not Given Promethazine HCl (Phenergan Injection -) 12.5 mg IVPUSH Q6H PRN PRN Reason: NAUSEA-FOR RESCUE AFTER 15 MIN Last Admin: 08/06/17 22:52 Dose: 12.5 mg - Objective Vital Signs: Vital Signs Temperature 98.4 F 08/07/17 06:00 Pulse Rate 99 H 08/07/17 08:00 Respiratory Rate 23 08/07/17 08:57 Blood Pressure 137/81 08/07/17 08:00 O2 Sat by Pulse Oximetry (%) 95 08/07/17 08:57 Labs: CBC, BMP 08/07/17 05:05 08/07/17 05:05 Assessment/Plan Surgery: Patient is alert and oriented. He has had breakfast this a.m. He feels better , and has no dysphagia. Drain , emptied, 30 ml of serosanguinous fluid drained since last night. Total drainage 150 ml, since surgery. Discussed with Dr. Carranza , from the ICU team. Will maintain the drain another day, and remove it tomorrow. Hold anticoagulation until tomorrow, and continue monitoring in the ER. Will remove drain tomorrow am. Patients was explained. S/O Subtotal thyroidectomy , with removal of mediastinal goiter. H/O pulmonary embolism, congestive heart failure, pulmonary hypertension . Had been on Pradaxa, and will be resumed after removal of drain tomorrow. Lab work , hematocrit is normal.
--- NOTE | 2017-08-07 09:30 | PN ---
Progress Note (short form) - Note Progress Note: Patient seen and examined in the ICU. Awake and alert. MONROE draining serosanguinous fluid. Denies CP or SOB. Seen by surgery this AM -> Will continue to hold AC for at least 1 more day. Intake & Output 08/04/17 08/05/17 08/06/17 08/07/17 23:59 23:59 23:59 23:59 Intake Total 2068 Output Total 935 Balance 1133 Last Vital Signs Temp Pulse Resp BP Pulse Ox 98.4 F 99 H 23 137/81 95 08/07/17 06:00 08/07/17 08:00 08/07/17 08:57 08/07/17 08:00 08/07/17 08:57 Active Medications Acetaminophen (Tylenol -) 325 mg PO Q6H PRN PRN Reason: FEVER OR PAIN Last Admin: 08/06/17 14:53 Dose: 325 mg Amlodipine Besylate (Norvasc -) 10 mg PO DAILY [facility] Docusate Sodium (Colace Liquid -) 50 mg PO DAILY [facility] Hydrochlorothiazide (Hctz -) 12.5 mg PO DAILY [facility] Sodium Chloride (Normal Saline -) 1,000 mls @ 42 mls/hr IV ASDIR [facility] Last Admin: 08/06/17 22:53 Dose: Not Given Ibuprofen (Motrin -) 200 mg PO Q6H PRN PRN Reason: PAIN Lisinopril (Prinivil) 20 mg PO DAILY [facility] Ondansetron HCl (Zofran Injection) 4 mg IVPUSH Q6H PRN PRN Reason: NAUSEA AND/OR VOMITING Last Admin: 08/06/17 22:53 Dose: 4 mg Oxycodone HCl (Roxicodone -) 5 mg PO Q6H PRN Pantoprazole Sodium (Protonix -) 40 mg PO DAILY [facility] Polyethylene Glycol (Miralax (For Daily Use) -) 17 gm PO BID [facility] Last Admin: 08/06/17 22:53 Dose: Not Given Promethazine HCl (Phenergan Injection -) 12.5 mg IVPUSH Q6H PRN PRN Reason: NAUSEA-FOR RESCUE AFTER 15 MIN Last Admin: 08/06/17 22:52 Dose: 12.5 mg Constitutional: Yes: Awake and alert Eyes: Yes: Conjunctiva Clear HENT: Yes: Atraumatic, Normocephalic. No: Drooling Neck: Yes: Supple, Trachea Midline, Other (MONROE drain) Cardiovascular: Yes: Regular Rate and Rhythm. No: Bradycardia, Tachycardia, JVD Respiratory: Yes: Regular, CTA Bilaterally, On NC. No: Cough Gastrointestinal: Yes: Normal Bowel Sounds, Soft, Abdomen, Obese ...Rectal Exam: Yes: Deferred Genitourinary: No: Anuria, Bladder Distention Breast(s): Yes: WNL Extremities: No: Calf Tenderness, Cold, Cyanosis Edema: No Integumentary: Yes: WNL Wound/Incision: Yes: Clean/Dry, Well Approximated, Open to air, Other (MONROE in place) Neurological: Yes: Alert, Oriented. No: Aphasia, Dysarthria ...Motor Strength: WNL Psychiatric: Yes: WNL Labs: Laboratory Results - last 24 hr 08/06/17 08/06/17 08/06/17 17:45 17:45 17:45 WBC 11.9 H D RBC 4.16 Hgb 13.6 Hct 40.3 MCV 96.7 H MCH 32.7 MCHC 33.8 RDW 14.5 Plt Count 263 D MPV 8.4 Total Counted 100 Neutrophils % No Result Required. Neutrophils % (Manual) 84.0 H Band Neutrophils % 7.0 Lymphocytes % No Result Required. Lymphocytes % (Manual) 3.0 L Monocytes % Monocytes % (Manual) 5 Eosinophils % Eosinophils % (Manual) 1.0 Basophils % Platelet Estimate Adequate Sodium 137 Potassium 3.9 Chloride 104 Carbon Dioxide 21 Anion Gap 12 BUN 12 Creatinine 0.8 Creat Clearance w eGFR > 60 Random Glucose 150 H D Calcium 8.2 L Phosphorus 3.7 Magnesium 1.5 L D Total Bilirubin 0.9 D AST 15 D ALT 22 D Alkaline Phosphatase 40 L D Creatine Kinase Troponin I Total Protein 5.4 L Albumin 2.8 L TSH 0.33 L D Free T4 1.32 H 08/06/17 08/07/17 08/07/17 21:53 05:05 05:05 WBC 11.5 H RBC 3.75 L Hgb 12.4 Hct 36.2 MCV 96.5 H MCH 33.0 MCHC 34.2 RDW 14.4 Plt Count 274 MPV 8.5 Total Counted Neutrophils % 84.9 H D Neutrophils % (Manual) Band Neutrophils % Lymphocytes % 8.9 D Lymphocytes % (Manual) Monocytes % 6.0 Monocytes % (Manual) Eosinophils % 0.0 D Eosinophils % (Manual) Basophils % 0.2 Platelet Estimate Sodium 138 Potassium 3.9 Chloride 104 Carbon Dioxide 27 D Anion Gap 7 L BUN 15 D Creatinine 0.9 Creat Clearance w eGFR > 60 Random Glucose 158 H Calcium 7.9 L Phosphorus Magnesium Total Bilirubin 0.7 D AST 10 L D ALT 18 Alkaline Phosphatase 36 L Creatine Kinase 59 Troponin I < 0.02 Total Protein 4.9 L Albumin 2.4 L TSH Free T4 Problem List - Problems (1) Hypertension Assessment/Plan: Code(s): I10 - ESSENTIAL (PRIMARY) HYPERTENSION Qualifiers: Hypertension type: essential hypertension Qualified Code(s): I10 - Essential (primary) hypertension (2) Mediastinal goiter Assessment/Plan: Code(s): E04.8 - OTHER SPECIFIED NONTOXIC GOITER (3) Pulmonary embolism and infarction Assessment/Plan: Code(s): I26.99 - OTHER PULMONARY EMBOLISM WITHOUT ACUTE COR PULMONALE PLAN: O2 as needed AC when OK with surgery Mechanical VTE prophylaxis Incentive Spirometry Thyroid hormone replacement ICU monitoring Dr Carranza Critical care time spent in reviewing chart, evaluating patient and formulating plan - 40 minutes.
[2017-08-07] MEDS: DOCUSATE NA 100 MG/10 ML UNIT-DOSE CUPS PO SCH (09:45)
[2017-08-07] MEDS: LISINOPRIL 20 MG TABLET (FP) PO SCH (09:46)
[2017-08-07] MEDS: amLODIPine BESYLATE 10 MG TABLET (FP) PO SCH (09:46)
[2017-08-07] MEDS: PANTOPRAZOLE 40 MG TABLET (FP) PO SCH (09:46)
[2017-08-07] MEDS: HYDROCHLOROTHIAZIDE 12.5 MG CAPSULE (FP) PO SCH (09:46)
[2017-08-07] MEDS: POLYETHYLENE GLYCOL 3350 119 GM BTL PO SCH ×2 (09:47→10:20)
[2017-08-07] MEDS ORDERED: HYDROCHLOROTHIAZIDE 12.5 MG CAPSULE (FP) PO SCH (10:00)
[2017-08-07] MEDS ORDERED: LISINOPRIL 20 MG TABLET (FP) PO SCH (10:00)
[2017-08-07] MEDS ORDERED: PATIENT'S OWN MEDICATION (NON-FORMULARY) (Lisinopril/Hydrochlorothiazide [Lisinopril-Hctz PO SCH (10:00)
[2017-08-07] MEDS: SODIUM CHLORIDE 1,000 ML IV SCH (12:36)
[2017-08-08 07:41] LABS: ANION GAP 7 (8-16); CALCIUM 7.7 mg/dL (8.5-10.1); CO2 27 mmol/L (21-32); GLUCOSE,RANDOM 110 mg/dL (74-106); MAGNESIUM 1.7 mg/dL (1.8-2.4)
[2017-08-08 07:43] LABS: CREATININE 0.9 mg/dL (0.7-1.3)
[2017-08-08] MEDS ORDERED: POTASSIUM CHLORIDE TABS 20 MEQ TABLET.ER (FP) PO ONE (08:06)
--- NOTE | 2017-08-08 08:06 | PN ---
Progress Note (short form) - Note Progress Note: Comfortable in ICU. Urinating, ambulating in the room. tolerating PO. MONROE drain minimal drainage Vital Signs Temp 97.6 F 08/08/17 06:00 Pulse 70 08/08/17 06:00 Resp 14 08/08/17 06:00 BP 141/93 08/08/17 06:00 Pulse Ox 95 08/07/17 20:01 Intake & Output 08/07/17 08/07/17 08/08/17 11:59 23:59 11:59 Intake Total 1300 704 Output Total 200 Balance 1100 704 Intake: IV 500 504 Normal Saline - 1,000 ml 500 504 @ 42 mls/hr IV ASDIR LILA Rx#:[id number] Oral 800 200 Output: Emesis 200 Other: Voiding Method Urinal Urinal # Unmeasured Voids Void 3 3 Lungs are clear heart S1S2 regular abdomen soft , NT Neuro A&O x3. CN 2-12-wnl. moves all extremities. Laboratory Results - last 24 hr 08/08/17 05:20 Sodium 140 Potassium 3.3 L Chloride 106 Carbon Dioxide 27 Anion Gap 7 L BUN 14 Creatinine 0.9 Random Glucose 110 H D Calcium 7.7 L Magnesium 1.7 L Current Active Problems Problem Status Onset HTN (hypertension) Acute S/P thyroidectomy Hypokalemia Acute Plan restart Pradaxa tomorrow F/u in the office this week and start Synthroid. Replete K. D/C IV fluids Problem List - Problems (1) Hypertension Code(s): I10 - ESSENTIAL (PRIMARY) HYPERTENSION Qualifiers: Hypertension type: essential hypertension Qualified Code(s): I10 - Essential (primary) hypertension (2) Mediastinal goiter Code(s): E04.8 - OTHER SPECIFIED NONTOXIC GOITER (3) Pulmonary embolism and infarction Code(s): I26.99 - OTHER PULMONARY EMBOLISM WITHOUT ACUTE COR PULMONALE
--- NOTE | 2017-08-08 08:17 | DS ---
Physical Examination Vital Signs: Vital Signs Temperature 97.6 F 08/08/17 06:00 Pulse Rate 70 08/08/17 06:00 Respiratory Rate 14 08/08/17 06:00 Blood Pressure 141/93 08/08/17 06:00 O2 Sat by Pulse Oximetry (%) 95 08/07/17 20:01 Constitutional: Yes: Well Nourished, No Distress Eyes: Yes: Conjunctiva Clear, EOM Intact HENT: Yes: Atraumatic, Normocephalic Neck: Yes: Supple, Trachea Midline Respiratory: Yes: Regular, CTA Bilaterally Gastrointestinal: Yes: Normal Bowel Sounds, Soft, Abdomen, Obese ...Rectal Exam: Yes: Deferred Renal/: No: Anuria, Bladder Distention Breast(s): Yes: WNL Musculoskeletal: No: Muscle Weakness Extremities: No: Calf Tenderness, Cold, Deformity Edema: No Labs: CBC, BMP 08/07/17 05:05 08/08/17 05:20 Discharge Summary Reason For Visit: COMP.OF TRACHEA,RETROSTERNAL THYROID GLAND, Current Active Problems HTN (hypertension) (Acute) S/P thyroidectomy (Acute) - Instructions - Home Medications Comprehensive Discharge Medication List: Ambulatory Orders Amlodipine Besylate 10 mg PO DAILY 01/22/17 Atenolol [Tenormin -] 50 mg PO DAILY 01/22/17 Lisinopril/Hydrochlorothiazide [Lisinopril-Hctz 20-12.5 mg Tab] 1 each PO DAILY 01/22/17 Dabigatran Etexilate Mesylate [Pradaxa -] 150 mg PO BID 06/08/17 Docusate Sodium [Stool Softener] 50 mg PO DAILY 08/03/17 Multivitamins [Multivit ([facility] Formul[facility])] 1 tab PO DAILY 08/03/17 Potassium Chloride [K-Dur -] 20 meq PO DAILY 08/03/17 Calcium Carbonate [Calcium] 500 mg PO 08/06/17 Ibuprofen [Advil -] 200 mg PO Q6H PRN tablet 08/08/17
[2017-08-08] MEDS ORDERED: MAGNESIUM SULF 50% (8.12 MEQ/2 ML-1 GM VIAL) ONE (09:02)
--- NOTE | 2017-08-08 09:35 | PN ---
Progress Note (short form) - Note Progress Note: Patient seen and examined in the ICU. Awake and alert. MONROE draining less serosanguinous fluid. Denies CP or SOB. Intake & Output 08/05/17 08/06/17 08/07/17 08/08/17 23:59 23:59 23:59 23:59 Intake Total 2068 1300 704 Output Total 935 200 Balance 1133 1100 704 Last Vital Signs Temp Pulse Resp BP Pulse Ox 97.6 F 70 14 141/93 95 08/08/17 06:00 08/08/17 06:00 08/08/17 06:00 08/08/17 06:00 08/07/17 20:01 Active Medications Acetaminophen (Tylenol -) 325 mg PO Q6H PRN PRN Reason: FEVER OR PAIN Last Admin: 08/06/17 14:53 Dose: 325 mg Amlodipine Besylate (Norvasc -) 10 mg PO DAILY [facility] Last Admin: 08/07/17 09:46 Dose: 10 mg Docusate Sodium (Colace Liquid -) 50 mg PO DAILY [facility] Last Admin: 08/07/17 09:45 Dose: 50 mg Hydrochlorothiazide (Hctz -) 12.5 mg PO DAILY [facility] Last Admin: 08/07/17 09:46 Dose: 12.5 mg Ibuprofen (Motrin -) 200 mg PO Q6H PRN PRN Reason: PAIN Lisinopril (Prinivil) 20 mg PO DAILY [facility] Last Admin: 08/07/17 09:46 Dose: 20 mg Magnesium Chloride (Slow-Mag -) 128 mg PO DAILY [facility] Magnesium Sulfate (Magnesium Sulfate) 2 gm IVPB ONCE ONE Stop: 08/08/17 09:34 Ondansetron HCl (Zofran Injection) 4 mg IVPUSH Q6H PRN PRN Reason: NAUSEA AND/OR VOMITING Last Admin: 08/06/17 22:53 Dose: 4 mg Oxycodone HCl (Roxicodone -) 5 mg PO Q6H PRN Pantoprazole Sodium (Protonix -) 40 mg PO DAILY [facility] Last Admin: 08/07/17 09:46 Dose: 40 mg Polyethylene Glycol (Miralax (For Daily Use) -) 17 gm PO BID [facility] Last Admin: 08/07/17 10:20 Dose: Not Given Promethazine HCl (Phenergan Injection -) 12.5 mg IVPUSH Q6H PRN PRN Reason: NAUSEA-FOR RESCUE AFTER 15 MIN Last Admin: 08/06/17 22:52 Dose: 12.5 mg Constitutional: Yes: Awake and alert Eyes: Yes: Conjunctiva Clear HENT: Yes: Atraumatic, Normocephalic. No: Drooling Neck: Yes: Supple, Trachea Midline, Other (MONROE drain) Cardiovascular: Yes: Regular Rate and Rhythm. No: Bradycardia, Tachycardia, JVD Respiratory: Yes: Regular, CTA Bilaterally, On NC. No: Cough Gastrointestinal: Yes: Normal Bowel Sounds, Soft, Abdomen, Obese ...Rectal Exam: Yes: Deferred Genitourinary: No: Anuria, Bladder Distention Breast(s): Yes: WNL Extremities: No: Calf Tenderness, Cold, Cyanosis Edema: No Integumentary: Yes: WNL Wound/Incision: Yes: Clean/Dry, Well Approximated, Open to air, Other (MONROE in place) Neurological: Yes: Alert, Oriented. No: Aphasia, Dysarthria ...Motor Strength: WNL Psychiatric: Yes: WNL Labs: Laboratory Results - last 24 hr 08/08/17 05:20 Sodium 140 Potassium 3.3 L Chloride 106 Carbon Dioxide 27 Anion Gap 7 L BUN 14 Creatinine 0.9 Random Glucose 110 H D Calcium 7.7 L Magnesium 1.7 L Problem List - Problems (1) Hypertension Assessment/Plan: Code(s): I10 - ESSENTIAL (PRIMARY) HYPERTENSION Qualifiers: Hypertension type: essential hypertension Qualified Code(s): I10 - Essential (primary) hypertension (2) Mediastinal goiter Assessment/Plan: Code(s): E04.8 - OTHER SPECIFIED NONTOXIC GOITER (3) Pulmonary embolism and infarction Assessment/Plan: Code(s): I26.99 - OTHER PULMONARY EMBOLISM WITHOUT ACUTE COR PULMONALE PLAN: O2 as needed AC when OK with surgery Mechanical VTE prophylaxis Incentive Spirometry Thyroid hormone replacement Dr Carranza
[2017-08-08] MEDS ORDERED: PT OWN MED DRAWER 7, Y5N ONE (09:36)
[2017-08-08] MEDS: LISINOPRIL 20 MG TABLET (FP) PO SCH (09:39)
[2017-08-08] MEDS: HYDROCHLOROTHIAZIDE 12.5 MG CAPSULE (FP) PO SCH (09:39)
[2017-08-08] MEDS: amLODIPine BESYLATE 10 MG TABLET (FP) PO SCH (09:40)
[2017-08-08] MEDS: PANTOPRAZOLE 40 MG TABLET (FP) PO SCH (09:40)
[2017-08-08] MEDS: DOCUSATE NA 100 MG/10 ML UNIT-DOSE CUPS PO SCH (09:40)
[2017-08-08] MEDS ORDERED: MAGNESIUM SULF 50% (8.12 MEQ/2 ML-1 GM VIAL) IVPB ONE (10:00)
[2017-08-08] MEDS: POLYETHYLENE GLYCOL 3350 119 GM BTL PO SCH (10:45)
[2017-08-08 10:56] VITALS: PULSE 84
[2017-08-08] MEDS ORDERED: ACETAMINOPHEN 325 MG TABLET (FP) PO PRN (10:58)
[2017-08-08] MEDS ORDERED: IBUPROFEN 200 MG TABLET PO PRN (10:58)
[2017-08-08] MEDS ORDERED: oxyCODONE HCL 5 MG TABLET PO PRN (10:58)
[2017-08-08] MEDS ORDERED: PROMETHAZINE HCL 25 MG/1 ML VIAL IVPUSH PRN (10:58)
[2017-08-08] MEDS ORDERED: ONDANSETRON 4 MG/2 ML VIAL IVPUSH PRN (10:58)
--- NOTE | 2017-08-08 11:45 | PN ---
Progress Note, Physician - Current Medication List Current Medications: Active Medications Acetaminophen (Tylenol -) 325 mg PO Q6H PRN PRN Reason: FEVER OR PAIN Amlodipine Besylate (Norvasc -) 10 mg PO DAILY [facility] Docusate Sodium (Colace Liquid -) 50 mg PO DAILY [facility] Hydrochlorothiazide (Hctz -) 12.5 mg PO DAILY [facility] Ibuprofen (Advil -) 200 mg PO Q6H PRN PRN Reason: PAIN Lisinopril (Prinivil) 20 mg PO DAILY [facility] Magnesium Chloride (Slow-Mag -) 128 mg PO DAILY [facility] Ondansetron HCl (Zofran Injection) 4 mg IVPUSH Q6H PRN PRN Reason: NAUSEA AND/OR VOMITING Oxycodone HCl (Roxicodone -) 5 mg PO Q6H PRN Pantoprazole Sodium (Protonix -) 40 mg PO DAILY [facility] Polyethylene Glycol (Miralax (For Daily Use) -) 17 gm PO BID [facility] Promethazine HCl (Phenergan Injection -) 12.5 mg IVPUSH Q6H PRN PRN Reason: NAUSEA-FOR RESCUE AFTER 15 MIN - Objective Vital Signs: Vital Signs Temperature 99.1 F 08/08/17 10:00 Pulse Rate 84 08/08/17 10:00 Respiratory Rate 20 08/08/17 10:00 Blood Pressure 133/75 08/08/17 10:00 O2 Sat by Pulse Oximetry (%) 96 08/08/17 09:00 Labs: CBC, BMP 08/07/17 05:05 08/08/17 05:20 Assessment/Plan Surgery: Patient is alert , oriented, not in pain , no distress. He is out of bed. Neck wound is clean, no swelling. Drain is removed. Plan : discharge home, will follow in the office, instructions given.
[2017-08-08 13:07] VITALS: BP 125/72; TEMP 98.8
[2017-08-08] MEDS: MAGNESIUM CL 64 MG TABLET.SA PO SCH ×2 (13:11)
[2017-08-08] MEDS ORDERED: POLYETHYLENE GLYCOL 3350 119 GM BTL PO SCH (22:00)
[2017-08-09] MEDS ORDERED: HYDROCHLOROTHIAZIDE 12.5 MG CAPSULE (FP) PO SCH (10:00)
[2017-08-09] MEDS ORDERED: DOCUSATE NA 100 MG/10 ML UNIT-DOSE CUPS PO SCH (10:00)
[2017-08-09] MEDS ORDERED: LISINOPRIL 20 MG TABLET (FP) PO SCH (10:00)
[2017-08-09] MEDS ORDERED: MAGNESIUM CL 64 MG TABLET.SA PO SCH (10:00)
[2017-08-09] MEDS ORDERED: PANTOPRAZOLE 40 MG TABLET (FP) PO SCH (10:00)
[2017-08-09] MEDS ORDERED: amLODIPine BESYLATE 10 MG TABLET (FP) PO SCH (10:00)
--- NOTE | 2017-08-09 23:07 | EKG ---
Test Reason : Blood Pressure : / mmHG Vent. Rate : 068 BPM Atrial Rate : 068 BPM P-R Int : 148 ms QRS Dur : 136 ms QT Int : 420 ms P-R-T Axes : 043 -85 012 degrees QTc Int : 446 ms NORMAL SINUS RHYTHM LEFT AXIS DEVIATION RIGHT BUNDLE BRANCH BLOCK T WAVE ABNORMALITY, CONSIDER LATERAL ISCHEMIA ABNORMAL ECG WHEN COMPARED WITH ECG OF 09-JUN-2017 14:30, PREMATURE ATRIAL COMPLEXES ARE NO LONGER PRESENT T WAVE VARIATION Confirmed by CARLOS HENDERSON MD ([id number]) on 08/09/2017 11:07:02 PM Referred By: Светлана Hyatt Confirmed By:CARLOS HENDERSON MD
--- NOTE | 2017-08-11 10:07 | PATH ---
Surgical Pathology Report Patient Name: WINTER PRIETO [facility]. Rec. 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 Specimen(s) Received A: NODULE OF THE ISTHMUS B: LEFT LOBE OF THE THYROID C: NODULE OF THE THYROID (RIGHT LOBE) D: PARTIAL RIGHT LOBECTOMY - INFERIOR POLE Clinical History Thyroid nodules Final Diagnosis A. THYROID, ISTHMUS, EXCISION: BENIGN THYROID PARENCHYMA WITH NODULAR HYPERLASIA. B. THYROID, LEFT, LOBECTOMY: PAPILLARY THYROID CARCINOMA, FOLLICULAR VARIANT TYPE, NON-ENCAPSULATED. TUMOR MEASURES 2.4 CM IN GREATEST MICROSCOPIC DIMENSION. NO LYMPHOVASCULAR INVASION IDENTIFIED. CARCINOMA EXTENDS TO INKED SURGICAL MARGINS. SURROUNDING THYROID TISSUE SHOWS NODULAR HYPERPLASIA WITH DEGENERATIVE CHANGES. SEE INVASIVE SUMMARY BELOW. C. THYROID, RIGHT, NODULE, EXCISION: PAPILLARY MICROCARCINOMA. TUMOR MEASURES 3 MM IN GREATEST MICROSCOPIC DIMENSION. NO LYMPHOVASCULAR INVASION IDENTIFIED. SURGICAL MARGINS ARE NEGATIVE FOR CARCINOMA. SURROUNDING THYROID TISSUE SHOWS NODULAR HYPERPLASIA WITH DEGENERATIVE CHANGES. SEE INVASIVE SUMMARY BELOW. D. THYROID, RIGHT, PARTIAL LOBECTOMY: PAPILLARY THYROID CARCINOMA, FOLLICULAR VARIANT TYPE, NON-ENCAPSULATED. TUMOR MEASURES 2.0 CM IN GREATEST MICROSCOPIC DIMENSION NO LYMPHOVASCULAR INVASION IDENTIFIED. SURGICAL MARGINS ARE NEGATIVE FOR CARCINOMA. SURROUNDING THYROID TISSUE SHOWS NODULAR HYPERPLASIA WITH DEGENERATIVE CHANGES AND FOCAL MICROCALCIFICATIONS. SEE INVASIVE SUMMARY BELOW. PATHOLOGIC STAGING (Specimen B-D): pT2 pNx Comments Thyroid carcinoma: Surgical Pathology Cancer Case Summary (Checklist) Based on AJCC/UICC TNM, 7th edition Procedure _X_ Thyroid lobectomy _X__ Left _X__ Partial thyroidectomy (anything less than a lobectomy) _X_ Right Specimen Integrity _X__Intact Specimen Size Right lobe: 5.2 x 2.3 x 1.2 cm Left lobe: 11.2 x 4 x 2.2 cm Isthmus: 2.3 x 1.2 x 0.3 cm Tumor Focality _X__ Multifocal: _X_ Bilateral( Left and Right) Dominant Tumor Tumor Laterality _X_ Left lobe Tumor Size Greatest dimension: 2.4 cm Histologic Type _X__ Papillary carcinoma _X_ Follicular variant Architecture: _X_ Follicular Cytomorphology: _X_ Classical Histologic Grade _X_ G1: Well differentiated Margins _X_ Margin(s) involved by carcinoma (Left lobe, specimen B) Tumor Capsule _X__ None Tumor Capsular Invasion _X__ Cannot be assessed Lymph-Vascular Invasion _X__ Not identified Extrathyroidal Extension _X__ Not identified Second and Third Tumor Tumor Laterality _X_ Right lobe Tumor Size Greatest dimension: 2 cm: 2 cm (Specimen D), 3 mm (Specimen C) Histologic Type _X__ Papillary carcinoma Variant, specify: _X_ Follicular variant (Specimen D) _X_ Microcarcinoma (occult, latent, small, papillary microtumor) (Specimen C) Architecture: _X_ Follicular Cytomorphology: _X__ Classical Histologic Grade _X__ G1: Well differentiated Margins _X__ Margins uninvolved by carcinoma Tumor Capsule _X__ None Tumor Capsular Invasion _X_ Cannot be assessed Lymph-Vascular Invasion _X__ Not identified Extrathyroidal Extension _X_ Not identified Pathologic Staging (pTNM) : pT2 pNx Comment: Findings discussed with Dr. Hyatt. Case seen interdepartmentally. Electronically Signed Sruthi Conrad M.D. Gross Description A. Received in formalin, labeled "nodule of the isthmus" is a 2.3 x 1.2 x 0.3 cm portion of dark brown soft tissue. The specimen is inked blue and serially sectioned. Sectioning reveals a cystic interior with scant brown colloid. Entirely submitted in two cassettes. B. Received in formalin, labeled "left lobe of the thyroid" is an 11.2 x 4 x 2.2 cm lobe of thyroid with a multinodular appearing external surface. The specimen is inked blue. Sectioning reveals multiple nodules with variegated cut surfaces comprised of dejesus gelatinous appearing foci admixed with fibrotic and hemorrhagic areas as well as scant viscid colloid. Neurophysiologist sections are submitted in 15 cassettes. C. Received in formalin, labeled "nodule of the thyroid right lobe" is a 1 x 0.9 x 0.2 cm portion of dark brown soft tissue. The specimen is inked blue, bisected and entire is submitted in one cassette. D. Received in formalin, labeled "partial right lobectomy" is a 5.2 x 2.3 x 1.2 cm lobe of thyroid. The specimen is inked blue. Sectioning reveals a 2 x 1.3 x 0.4 cm nodule with a variegated cut surface comprised of dejesus gelatinous appearing foci admixed with fibrotic and hemorrhagic areas. The remainder of the thyroid parenchyma appears red-brown and fleshy. Neurophysiologist sections are submitted in 12 cassettes with the nodule in cassettes 1-3. ebram/08/06/2017
== END 2017-08-08 14:16 | disposition home or self-care (01) | DRG 404 ==
LOC: JASU-SURG 06:17 → JSAMEDAYSX 12:18 → JICU 14:10
PROVIDERS: ADMIT Specialist; ATTEND Specialist
PROC: 0GBG0ZZ Excision of Left Thyroid Gland Lobe, Open Approach (ICD-10-PCS; 2017-08-06)
PROC: 0GBH0ZZ Excision of Right Thyroid Gland Lobe, Open Approach (ICD-10-PCS; 2017-08-06)
PROC: 0GBJ0ZZ Excision of Thyroid Gland Isthmus, Open Approach (ICD-10-PCS; principal; 2017-08-06 08:00)
DX: C73 Malignant neoplasm of thyroid gland (principal); E04.2 Nontoxic multinodular goiter; E07.9 Disorder of thyroid, unspecified; E01.0 Iodine-deficiency related diffuse (endemic) goiter; J98.8 Other specified respiratory disorders; I27.20 Pulmonary hypertension, unspecified; Z86.711 Personal history of pulmonary embolism; R33.8 Other retention of urine; I11.0 Hypertensive heart disease with heart failure; I50.9 Heart failure, unspecified; N99.89 Other postprocedural complications and disorders of genitourinary system; Y83.8 Other surgical procedures as the cause of abnormal reaction of the patient, or of later complication, without mention of misadventure at the time of the procedure
CPT/HCPCS: 36415; 80048; 80053; 82550; 83735; 84100; 84439; 84443; 84484; 85025; 86850; 86900; 86901; 88305-TC; 88307-TC; 93005; 93010; 94760

== ENCOUNTER 2017-08-20 09:52 | Inpatient (IN) | payer OTHER ==
[2017-08-19 12:00] VITALS: BMI 30.6
--- NOTE | 2017-08-20 09:50 | HP ---
Satellite PMH - Chief Complaint Chief Complaint: Carcinoma of thyroid gland , s/p left lobecyomy, isthmusectomt , and partial right lower lobe excision . Diagnosis, multicentric thyroid carcinoma with capsular invasion. Plan : completion thyroidectomy ansd modified neck dissection. History Source: Patient, Medical Record - Past Medical History Allergies/Adverse Reactions: Allergies Allergy/AdvReac Type Severity Reaction Status Date / Time No Known Allergies Allergy Verified 08/06/17 06:55 Cardiovascular: Yes: Deep Vein Thrombosis, HTN, Hyperlipdemia Pulmonary: Yes: Pulmonary Embolus Musculoskeletal: Yes: Other (H/O injury and fracture of right ankle reapired, as well as injury to right shoulder with paralysis/ weakness of right arm.) - Current Medications Current Medications: Home Medications Medication Instructions Recorded Amlodipine Besylate 10 mg PO DAILY 01/22/17 Atenolol [Tenormin -] 50 mg PO DAILY 01/22/17 Lisinopril/Hydrochlorothiazide 1 each PO DAILY 01/22/17 [Lisinopril-Hctz 20-12.5 mg Tab] Dabigatran Etexilate Mesylate 150 mg PO BID 06/08/17 [Pradaxa -] Potassium Chloride [K-Dur -] 20 meq PO DAILY 08/03/17 Satellite Impression/Plan - Impression/Plan Impression: Carcinoma of thyroid. Plan : Completion thyroidectomy, and left modified neck dissection. Date to be Performed: 08/20/17
[2017-08-20] MEDS ORDERED: PROPOFOL 20 ML ONE ×4 (10:24→13:56)
[2017-08-20] MEDS ORDERED: ROCURONIUM BROMIDE 50 MG/5 ML VIAL ONE (10:29)
[2017-08-20] MEDS ORDERED: SUCCINYLCHOLINE CHLORIDE 200 MG/10 ML VIAL ONE (10:29)
[2017-08-20] MEDS ORDERED: ATROPINE SO4 0.4 MG/1 ML VIAL ONE (10:34)
[2017-08-20] MEDS ORDERED: ePHEDrine SULFATE 50 MG/1 ML AMPULE ONE ×2 (10:52→13:18)
[2017-08-20] MEDS ORDERED: SODIUM CHLORIDE 0.9% P/F 10 ML VIAL IJ ONE (10:52)
[2017-08-20] MEDS ORDERED: MIDAZOLAM HCL 2 MG/2 ML SINGLE DOSE VIAL ONE (11:19)
[2017-08-20] MEDS ORDERED: DESFLURANE GAS 240 ML BOTTLE IH ONE (11:27)
[2017-08-20] MEDS ORDERED: ONDANSETRON 4 MG/2 ML VIAL ONE (14:06)
[2017-08-20] MEDS ORDERED: ONDANSETRON 4 MG/2 ML VIAL IVPUSH PRN (14:33)
--- NOTE | 2017-08-20 14:46 | OP ---
Operative Note - Note: Operative Date: 08/20/17 Pre-Operative Diagnosis: Carcinoma of thyroid, s/p subtotal thyroidectomy. Operation: Completion thyroidectomy, with limited neck dissection. Central compartment neck dissection ,. Use of nervana nerve monitor. Findings: No grossly enlarged lymph nodes. A small remnant of thyroid. Surgeon: Gato Hyatt Grain Weigher: Kasey Rodriguez) Anesthesiologist/PROFESSOR OF POULTRY SCIENCE: Adolfo Petersen Anesthesia: General Specimens Removed: Thyroid remnant, with central compartment neck dissection,. 2) Left lateral neck dissection , jugular chain and posterior triangle. Estimated Blood Loss (mls): 50 Drains & Tubes with Location: MONROE drain , # 10. Operative Report Dictated: Yes
[2017-08-20] MEDS ORDERED: morphine SULFATE 4 MG/ML VIAL IM PRN (15:57)
[2017-08-20] MEDS ORDERED: HYDROmorphone HCL CARPU-JECT 2 MG/1 ML DISP.SYRIN ONE (16:27)
[2017-08-20] MEDS ORDERED: HYDROmorphone HCL CARPU-JECT 1 MG/1 ML DISP.SYRIN IVPUSH PRN (16:29)
--- NOTE | 2017-08-20 16:57 | SURG ---
Surgery Journeyman Mechanic Note Journeyman Mechanic: Kasey Rodriguez PA-C Date of Service: 08/20/17 Diagnosis: Carcinoma of thyroid, s/p subtotal thyroidectomy. Procedure: Completion thyroidectomy, with limited neck dissection. Central compartment neck dissection ,. Use of nervana nerve monitor. I was present for the entirety of the operative procedure. For further detail, please refer to operative report. Visit type - Case Type Case Type: Scheduled Admission - Emergency Emergency Visit: No - New patient This patient is new to me today: Yes Date on this admission: 08/20/17
[2017-08-20] MEDS: DEXTROSE 5%-0.45% SALINE 1,000 ML IV SCH (17:00)
[2017-08-20] MEDS: CALCIUM CARBONATE 650 MG TABLET PO SCH (21:33)
[2017-08-21] MEDS ORDERED: oxyCODONE HCL 5 MG TABLET PO PRN (03:42)
[2017-08-21] MEDS ORDERED: ACETAMINOPHEN 325 MG TABLET (FP) PO PRN (03:42)
[2017-08-21] MEDS ORDERED: LEVOTHYROXINE NA 50 MCG TABLET (FP) PO SCH (07:00)
[2017-08-21 07:50] LABS: MCH 32.2 pg (25.7-33.7); MCHC 34.8 g/dl (32.0-35.9); MEAN CELL VOLUME 92.5 fl (80-96); MEAN PLT VOLUME 7.8 fl (7.5-11.1); PLATELET COUNT 328 K/MM3 (134-434); RDW 14.7 % (11.9-15.9); WHITE BLOOD COUNT 10.7 K/mm3 (4.0-10.0)
[2017-08-21 08:28] LABS: ALBUMIN 2.9 g/dl (3.4-5.0); ANION GAP 11 (8-16); CALCIUM 9.2 mg/dL (8.5-10.1); CO2 26 mmol/L (21-32); CREATININE 1.1 mg/dL (0.7-1.3); GLUCOSE,RANDOM 135 mg/dL (74-106); SGPT/ALT 15 U/L (12-78)
[2017-08-21 08:30] LABS: ALK PHOS 64 U/L (45-117); BILIRUBIN,TOTAL 0.7 mg/dL (0.2-1.0); SGOT/AST 9 U/L (15-37); TOT PROT 5.5 g/dl (6.4-8.2)
[2017-08-21] MEDS: CALCIUM CARBONATE 650 MG TABLET PO SCH ×2 (10:16→21:42)
[2017-08-21] MEDS: ATENOLOL 50 MG TABLET (FP) PO SCH (10:16)
[2017-08-21] MEDS: amLODIPine BESYLATE 10 MG TABLET (FP) PO SCH (10:16)
--- NOTE | 2017-08-21 11:47 | OP ---
DATE OF OPERATION: 08/20/2017 SEX: Male. AGE: 67 PREOPERATIVE DIAGNOSES: Carcinoma of the thyroid status post subtotal thyroidectomy, history of pulmonary embolism, hypertension, cardiac arrhythmia. POSTOPERATIVE DIAGNOSES: Carcinoma of the thyroid status post subtotal thyroidectomy, history of pulmonary embolism, hypertension, cardiac arrhythmia. OPERATIVE PROCEDURE: 1. Completion thyroidectomy. 2. Left-sided modified neck dissection (jugular chain and posterior compartment lymph nodes). 3. Central compartment neck dissection. 4. Use of Nerveana nerve monitoring device. SURGEON: Sarai Hyatt MD RECORD SEARCHER: TONY Rowland ANESTHESIA: General anesthesia with the use of the nerve monitoring device. ANESTHESIOLOGIST: Adolfo Petersen MD OPERATIVE DESCRIPTION: This 67-year-old man had a recent subtotal thyroidectomy for what was believed to be multinodular goiter with a large mediastinal component and tracheal deviation. The final pathology showed multicentric carcinoma of the thyroid with some capsular invasion. The patient was brought in for completion thyroidectomy, neck dissection, central compartment neck dissection and lateral neck dissection. Consent was obtained. The risks, benefits and complications were extensively discussed with the patient and his . The patient was given general anesthesia. We then used the Nerveana nerve monitoring device. The neck was positioned in extension, painted and draped. Timeout was called. The previous incision in the lower neck was opened using a knife, going through the skin, platysma, subcutaneous tissue, and the deep cervical fascia. Superior and inferior skin flaps were then placed between the platysma and the deep cervical fascia superior to the hyoid bone, inferiorly and anteriorly to below the clavicle on either side. All adhesions of the tissues were carefully lysed. The sternocleidomastoid muscle was freed from the flap on either side. The strap muscles were then divided in the midline from the hyoid bone to the suprasternal notch. There were extensive adhesions of the strap muscles to the trachea and the thyroid cartilage. This was carefully . There was a very small remnant of the right lobe of the thyroid left in the midline. This was carefully from the rest of the structures and brought to the midline. The nerve monitoring device was used to protect the nerve and maintain its integrity. On the right side, there were no enlarged nodes. On the left side, the jugular chain of lymph nodes was removed by exposing the jugular vein from the clavicle all the way down to the mandible. All fibrofatty tissue from the jugular chain and the carotid sheath was excised and sent to Pathology. The posterior triangle nodes that were posterior to the jugular chain were also removed with all fibrofatty contents. The recurrent laryngeal nerve, the cervical plexus and the tracheal plexus were preserved intact. This specimen was sent to Pathology separately as modified neck dissection. After this, the lymphatics and lymph nodes in the upper neck and the upper thorax around the trachea were excised from one recurrent laryngeal nerve to the other. This was sent separately to Pathology as central compartment lymph nodes. At the completion, there was no bleeding. All bleeding vessels were either clipped with small clips or cauterized or the LigaSure was used during the procedure. Estimated blood loss was 50 mL. The wound was irrigated. A number 10 MONROE drain was left into the wound, brought out through a stab wound on the left side of the neck. The wound was then carefully closed, approximating the strap muscles with interrupted 3-0 Vicryl sutures, platysma with buried interrupted 3-0 Vicryl sutures, and the skin approximated with continuous 4-0 Monocryl sutures in a running subcuticular fashion. Sponge count and instrument count were correct. The drain was anchored with 2-0 Prolene. The patient tolerated the procedure well, was extubated and sent to the recovery room in satisfactory and stable condition. Arielle PATTERSON/[id number] cc: Kevin Jennings MD
[2017-08-21] MEDS ORDERED: LEVOTHYROXINE NA 175 MCG TABLET PO SCH (12:11)
--- NOTE | 2017-08-21 12:16 | PN ---
Progress Note (short form) - Note Progress Note: Patient is well known from the office. Underwent initially left thyroidectomy, partial right and isthmusectomy . The pathology was c/w multicentric follicular . carcinoma with capsule invasion Yesterday total thyroidectomy with left neck dissection performed. PMH HTN. B/L pulmonary embolism after DVT. Now on Pradaxa BID. Hystory of RLE and shoulder injury 10 yrs ago. Current Medications Generic Name Dose Route Start Last Admin Trade Name Freq PRN Reason Stop Dose Admin Acetaminophen 325 mg 08/21/17 03:42 Tylenol - PO Q6H PRN PAIN LEVEL 1-5 Amlodipine Besylate 10 mg 08/21/17 10:00 08/21/17 10:16 Norvasc - PO 10 mg DAILY [facility] Administration Atenolol 50 mg 08/21/17 10:00 08/21/17 10:16 Tenormin - PO 50 mg DAILY [facility] Administration Calcium Carbonate 650 mg 08/20/17 22:00 08/21/17 10:16 Calcium Carbonate - PO 650 mg BID [facility] Administration Fentanyl 50 mcg 08/20/17 16:29 Sublimaze Injection - IVPUSH [id number] PRN PAIN Hydromorphone HCl 0.5 mg 08/20/17 16:29 08/20/17 16:30 Dilaudid Injection - IVPUSH 0.5 mg [id number] PRN Administration PAIN Dextrose/Sodium Chloride 1,000 mls @ 42 mls/hr 08/20/17 15:15 08/20/17 17:00 D5-1/2ns - IV 0 mls ASDIR [facility] Administration Levothyroxine Sodium 175 mcg 08/21/17 12:11 Synthroid - PO DAILY@0700 [facility] Morphine Sulfate 2 mg 08/20/17 15:57 Morphine Sulfate IM Q6H PRN PAIN LEVEL 6-10 Ondansetron HCl 4 mg 08/20/17 14:33 Zofran Injection IVPUSH Q6H PRN NAUSEA AND/OR VOMITING Oxycodone HCl 5 mg 08/21/17 03:42 Roxicodone - PO Q6H PRN PAIN LEVEL 1-5 Today awake, alert with in a/c , comfortable. Tolerates PO well. Neck MONROE still hemorrhagic draining. No JVD. Lungs are clear. Heart S1S2 regular Abdomen soft, NT, ext-no CCE Neuro A&Ox3, non-focal. IMP Thyroid CA. S/P thyroidectomy. Previous pulmonary embolism HTN Plan Will continue Synthroid 175 mcg PO QD Will restart Pradaxa in 24 hrs Follow Thyroglobulin. I131 scan in 3 months to r/o distant methastases.
--- NOTE | 2017-08-21 12:47 | PN ---
Progress Note, Physician - Current Medication List Current Medications: Active Medications Acetaminophen (Tylenol -) 325 mg PO Q6H PRN PRN Reason: PAIN LEVEL 1-5 Amlodipine Besylate (Norvasc -) [address] [facility] Last Admin: 08/21/17 10:16 Dose: 10 mg Atenolol (Tenormin -) [address] [facility] Last Admin: 08/21/17 10:16 Dose: 50 mg Calcium Carbonate (Calcium Carbonate -) [address] [facility] Last Admin: 08/21/17 10:16 Dose: 650 mg Fentanyl (Sublimaze Injection -) 50 mcg IVPUSH [id number] PRN PRN Reason: PAIN Hydromorphone HCl (Dilaudid Injection -) 0.5 mg IVPUSH [id number] PRN PRN Reason: PAIN Last Admin: 08/20/17 16:30 Dose: 0.5 mg Dextrose/Sodium Chloride (D5-1/2ns -) 1,000 mls @ 42 mls/hr IV ASDIR [facility] Last Admin: 08/20/17 17:00 Dose: 0 mls Levothyroxine Sodium (Synthroid -) 175 mcg PO DAILY@0700 [facility] Morphine Sulfate (Morphine Sulfate) 2 mg IM Q6H PRN PRN Reason: PAIN LEVEL 6-10 Ondansetron HCl (Zofran Injection) 4 mg IVPUSH Q6H PRN PRN Reason: NAUSEA AND/OR VOMITING Oxycodone HCl (Roxicodone -) 5 mg PO Q6H PRN PRN Reason: PAIN LEVEL 1-5 - Objective Vital Signs: Vital Signs Temperature 97.5 F L 08/21/17 09:00 Pulse Rate 68 08/21/17 09:00 Respiratory Rate 20 08/21/17 09:00 Blood Pressure 109/57 08/21/17 09:00 O2 Sat by Pulse Oximetry (%) 94 L 08/20/17 17:00 Labs: CBC, BMP 08/21/17 05:45 08/21/17 05:45 Assessment/Plan S/P Total thyroidectomy, with central compartment neck dissection and left lateral neck dissection. Wound is clean, he has normal voice. Serum calcium 8.4. Continue to monitor calcium. Drain 110 ml. serosanguinous. Will remove drain tomorrow. Continue to monitor calcium. Blood for calcium and PTH. He is out of bed. Tolertaing feeding.
[2017-08-21] MEDS ORDERED: LEVOTHYROXINE 125 MCG, LEVOTHYROXINE 50 MCG PO SCH (13:00)
[2017-08-21] MEDS ORDERED: PT OWN MED DRAWER 7, Y5N ONE ×2 (15:48→18:25)
[2017-08-21] MEDS: CALCITRIOL 0.25 MCG CAPSULE (FP) PO SCH (16:15)
[2017-08-21] MEDS: DEXTROSE 5%-0.45% SALINE 1,000 ML IV SCH (18:24)
[2017-08-22 04:55] VITALS: TEMP 98.2
[2017-08-22] MEDS ORDERED: LEVOTHYROXINE NA 125 MCG TABLET (FP) ONE (06:28)
[2017-08-22] MEDS ORDERED: LEVOTHYROXINE NA 50 MCG TABLET (FP) ONE (06:29)
[2017-08-22] MEDS ORDERED: LEVOTHYROXINE 125 MCG, LEVOTHYROXINE 50 MCG PO SCH (07:00)
--- NOTE | 2017-08-22 07:49 | PN ---
Progress Note, Physician Chief Complaint: s/p thyroidectomy and neck dissection. Post op day 2 History of Present Illness: under general anesthesia - Current Medication List Current Medications: Active Medications Acetaminophen (Tylenol -) 325 mg PO Q6H PRN PRN Reason: PAIN LEVEL 1-5 Amlodipine Besylate (Norvasc -) 10 mg PO DAILY [facility] Last Admin: 08/21/17 10:16 Dose: 10 mg Atenolol (Tenormin -) 50 mg PO DAILY [facility] Last Admin: 08/21/17 10:16 Dose: 50 mg Calcitriol (Rocaltrol -) 3 mcg PO DAILY [facility] Calcium Carbonate (Calcium Carbonate -) 650 mg PO BID [facility] Last Admin: 08/21/17 21:42 Dose: 650 mg Fentanyl (Sublimaze Injection -) 50 mcg IVPUSH [id number] PRN PRN Reason: PAIN Hydromorphone HCl (Dilaudid Injection -) 0.5 mg IVPUSH [id number] PRN PRN Reason: PAIN Last Admin: 08/20/17 16:30 Dose: 0.5 mg Dextrose/Sodium Chloride (D5-1/2ns -) 1,000 mls @ 42 mls/hr IV ASDIR [facility] Last Admin: 08/21/17 18:24 Dose: Not Given Levothyroxine Sodium 125 mcg/ (Levothyroxine Sodium 50 mcg) 175 mcg PO DAILY@ 0700 [facility] Last Admin: 08/22/17 06:50 Dose: 175 mcg Morphine Sulfate (Morphine Sulfate) 2 mg IM Q6H PRN PRN Reason: PAIN LEVEL 6-10 Ondansetron HCl (Zofran Injection) 4 mg IVPUSH Q6H PRN PRN Reason: NAUSEA AND/OR VOMITING Oxycodone HCl (Roxicodone -) 5 mg PO Q6H PRN PRN Reason: PAIN LEVEL 1-5 - Objective Vital Signs: Vital Signs Temperature 98.2 F 08/22/17 06:54 Pulse Rate 56 L 08/22/17 06:54 Respiratory Rate 20 08/22/17 06:54 Blood Pressure 139/72 08/22/17 06:54 O2 Sat by Pulse Oximetry (%) 94 L 08/21/17 21:00 Constitutional: Yes: Well Nourished Cardiovascular: Yes: WNL Respiratory: Yes: WNL Gastrointestinal: Yes: WNL Labs: CBC, BMP 08/21/17 05:45 08/21/17 05:45 Assessment/Plan No adverse effects to anesthesia currently. Had nausea night of surgery now resolved. Pain controlled. Dept of anesthesia will sign off care at this time
[2017-08-22] MEDS ORDERED: PT OWN MED DRAWER 7, Y5N ONE (09:16)
[2017-08-22] MEDS: CALCIUM CARBONATE 650 MG TABLET PO SCH (09:38)
[2017-08-22] MEDS: ATENOLOL 50 MG TABLET (FP) PO SCH (09:38)
[2017-08-22] MEDS: amLODIPine BESYLATE 10 MG TABLET (FP) PO SCH (09:38)
[2017-08-22] MEDS: CALCITRIOL 0.25 MCG CAPSULE (FP) PO SCH (12:01)
--- NOTE | 2017-08-22 12:01 | PN ---
Progress Note, Physician - Current Medication List Current Medications: Active Medications Acetaminophen (Tylenol -) 325 mg PO Q6H PRN PRN Reason: PAIN LEVEL 1-5 Amlodipine Besylate (Norvasc -) 10 mg PO DAILY [facility] Last Admin: 08/22/17 09:38 Dose: 10 mg Atenolol (Tenormin -) 50 mg PO DAILY [facility] Last Admin: 08/22/17 09:38 Dose: 50 mg Calcitriol (Rocaltrol -) 3 mcg PO DAILY [facility] Last Admin: 08/21/17 16:15 Dose: Not Given Calcium Carbonate (Calcium Carbonate -) 650 mg PO BID [facility] Last Admin: 08/22/17 09:38 Dose: 650 mg Fentanyl (Sublimaze Injection -) 50 mcg IVPUSH [id number] PRN PRN Reason: PAIN Hydromorphone HCl (Dilaudid Injection -) 0.5 mg IVPUSH [id number] PRN PRN Reason: PAIN Last Admin: 08/20/17 16:30 Dose: 0.5 mg Dextrose/Sodium Chloride (D5-1/2ns -) 1,000 mls @ 42 mls/hr IV ASDIR [facility] Last Admin: 08/21/17 18:24 Dose: Not Given Levothyroxine Sodium 125 mcg/ (Levothyroxine Sodium 50 mcg) 175 mcg PO DAILY@ 0700 [facility] Last Admin: 08/22/17 06:50 Dose: 175 mcg Morphine Sulfate (Morphine Sulfate) 2 mg IM Q6H PRN PRN Reason: PAIN LEVEL 6-10 Ondansetron HCl (Zofran Injection) 4 mg IVPUSH Q6H PRN PRN Reason: NAUSEA AND/OR VOMITING Oxycodone HCl (Roxicodone -) 5 mg PO Q6H PRN PRN Reason: PAIN LEVEL 1-5 - Objective Vital Signs: Vital Signs Temperature 98.2 F 08/22/17 06:54 Pulse Rate 56 L 08/22/17 06:54 Respiratory Rate 20 08/22/17 06:54 Blood Pressure 139/72 08/22/17 06:54 O2 Sat by Pulse Oximetry (%) 94 L 08/21/17 21:00 Labs: CBC, BMP 08/21/17 05:45 08/21/17 05:45 Assessment/Plan Patient is comfortable. Neck wound is clean. MONROE drain 45 ml. Serum calcium is 9.2 mgm, improved with Vitamin D3, and calcium by mouth. Will continue the samr upon discharge for 2 weeks. Prescription sent. Follow up in my office.
[2017-08-22 12:35] VITALS: BP 127/62; PULSE 63
--- NOTE | 2017-08-23 11:37 | PATH ---
Surgical Pathology Report Patient Name: WINTER PRIETO [facility]. Rec. #: [id number] /Age/Gender: 1950 (Age: 67) / M Account: [id number] Location: 4 W TELEMETRY U Taken: 08/20/2017 Received: 08/20/2017 Reported: 08/23/2017 Physicians: Sarai Hyatt M.D. Specimen(s) Received A: LEFT LATERAL NECK DISSECTION B: CENTRAL COMPARTMENT NECK DISSECTION THYROID REMNANTS Clinical History Carcinoma of the thyroid Final Diagnosis A. LYMPH NODES, LEFT LATERAL NECK, DISSECTION: FIVE BENIGN LYMPH NODES (0/5). B. LYMPH NODES, CENTRAL COMPARTMENT, DISSECTION: BENIGN FIBROFATTY TISSUE WITH EXTENSIVE FAT NECROSIS AND FOCAL SUTURE GRANULOMA. ONE BENIGN LYMPH NODE (0/1). NO RESIDUAL THYROID TISSUE IDENTIFIED. Comment: See prior specimen [id number]. The stage is now pT2 pN0. Electronically Signed Igor Benavides M.D. Gross Description A. Received in formalin labeled "left lateral neck dissection," is a 3.5 x 3.0 x 0.3 cm aggregate of yellow, lobulated adipose tissue, possibly containing lymph nodes. The specimen is submitted in toto in 2 cassettes. B. Received in formalin labeled "central compartment neck dissection thyroid remnants," is a 2.3 x 1.5 x 1.0 cm firm portion of pink-dejesus tissue. Sectioning reveals fat necrosis. Also received within the same container is a 3.0 x 2.1 x 0.3 cm aggregate of yellow, lobulated adipose tissue, possibly containing lymph nodes. The specimen is submitted entirely in 3 cassettes as follows: 8-0-ohzqqfsxt portion of firm tissue; 3-remaining fat. DL/08/20/2017 saudi08/20/2017
[2017-08-26 00:06] LABS: CALCIUM 9.3 mg/dL (8.6-10.2)
== END 2017-08-22 13:47 | disposition home or self-care (01) | DRG 404 ==
LOC: JSAMEDAYSX 09:52 → EDSTATUS 13:00 → J4W 17:25
PROVIDERS: ADMIT Specialist; ATTEND Specialist
PROC: 07T20ZZ Resection of Left Neck Lymphatic, Open Approach (ICD-10-PCS; 2017-08-20)
PROC: 07T70ZZ Resection of Thorax Lymphatic, Open Approach (ICD-10-PCS; 2017-08-20)
PROC: 0GTG0ZZ Resection of Left Thyroid Gland Lobe, Open Approach (ICD-10-PCS; principal; 2017-08-20 11:30)
DX: C73 Malignant neoplasm of thyroid gland (principal); I10 Essential (primary) hypertension; Z86.711 Personal history of pulmonary embolism; C79.89 Secondary malignant neoplasm of other specified sites
CPT/HCPCS: 36415; 80053; 82310; 83970; 85027; 88307-TC; 94760

== ENCOUNTER 2018-08-08 17:34 | Inpatient (IN) | payer OTHER ==
[2018-08-08 18:48] LABS: HEMATOCRIT 41.5 % (35.4-49); HEMOGLOBIN 14.9 GM/dL (11.7-16.9); MCH 32.2 pg (25.7-33.7); MCHC 35.9 g/dl (32.0-35.9); MEAN CELL VOLUME 89.6 fl (80-96); MEAN PLT VOLUME 8.1 fl (7.5-11.1); PLATELET COUNT 345 K/MM3 (134-434); RBC 4.64 M/mm3 (4.00-5.60); RDW 15.2 % (11.9-15.9); WHITE BLOOD COUNT 10.9 K/mm3 (4.0-10.0)
[2018-08-08 19:27] LABS: ALK PHOS 52 U/L (45-117); ANION GAP 14 MMOL/L (8-16); BILIRUBIN,TOTAL 1.4 mg/dL (0.2-1); BLOOD UREA NITROGEN 29 mg/dL (7-18); CALCIUM 9.1 mg/dL (8.5-10.1); CHLORIDE 94 mmol/L (98-107); CO2 30 mmol/L (21-32); CREATININE 1.4 mg/dL (0.55-1.3); GLUCOSE,RANDOM 143 mg/dL (74-106); POTASSIUM 3.7 mmol/L (3.5-5.1); SGOT/AST 22 U/L (15-37); SGPT/ALT 28 U/L (13-61); SODIUM 138 mmol/L (136-145); TOT PROT 5.8 g/dl (6.4-8.2)
[2018-08-08 19:51] LABS: INR 1.23 (0.83-1.09); PROTHROMBIN TIME (PATIENT) 14.6 SEC (9.7-13.0)
--- NOTE | 2018-08-08 20:19 | PDOC ---
Attending Attestation - Resident Resident Name: Tammi Bonds - ED Attending Attestation I have performed the following: I have examined & evaluated the patient, The case was reviewed & discussed with the resident, I agree w/resident's findings & plan, Exceptions are as noted - Medical Decision Making 08/08/18 20:19 A portion of this note was documented by scribe services under my direction. I have reviewed the details of the note, within reason, and agree with the documentation with the following case summary and management plan written by me. Patient treated in the ED. Nursing notes are reviewed and incorporated into the medical decision-making. Vital signs reviewed. Peripheral IV access obtained by the nurse, laboratory studies are drawn and sent, reviewed and interpreted by myself. Vital Signs Temp Pulse Resp BP Pulse Ox 98.0 F 87 20 110/62 98 08/08/18 17:50 08/08/18 20:04 08/08/18 20:04 08/08/18 20:04 08/08/18 20:05 68-year-old male with past medical history of thyroidectomy for goiter, hypertension, pulmonary embolism on anticoagulation brought in by his endocrine surgeon for syncope. The patient was in his usual state of health and undergoing a routine follow-up appointment with his surgeon. Upon leaving the facility, the patient was feeling dizzy and was sent down by the nurse. The patient had a brief syncopal episode. Surgeon was concerned as he was unable to briefly feel pulse in the patient appeared diaphoretic and clammy. However, patient returned back to baseline. Denies chest pain or shortness of breath. States that he feels well but came at the insistence of his surgeon. Denies recent illnesses, fevers, chills, cough, vomiting. Reports adherence his medications. Given the syncope, finding is concerning for potential cardiac etiology. Patient currently denies any chest pain short of breath. However, we'll obtain labs including troponin. We'll place patient on environmental monitoring technician and also in the patient to the hospital for syncope evaluation. <Tej Edwards - Last Filed: 08/08/18 20:14> - HPI HPI: 08/08/18 20:51 The patient is a 68 year old male, with a significant past medical history of PE , HTN, Goiter (s/p thyroidectomy), who presents to the emergency department s/p syncope. As per patients endocrine surgeon, he was in his office for a routine follow-up and on his way out he syncopized. Patients doctor notes at this time he could not feel a pulse, just prior to starting compressions the patient came to himself and returned to his baseline. As per patient, he was aware of the entire episode and did not syncopize. He denies any recent fevers, chills, headache or dizziness. He denies any recent nausea, vomit, diarrhea or constipation. He denies any recent chest pain or shortness of breath. He denies any recent dysuria, frequency, urgency or hematuria. Allergies: NKDA Past surgical history: Thyroidectomy. Social History: Nonsmoker. Denies EtOH use and recreational drug use. Primary Care Physician: Dr. Jennings - Physicial Exam PE: 08/08/18 20:51 GENERAL: Awake, alert, and fully oriented, in no acute distress HEAD: No signs of trauma NECK: Normal ROM LUNGS: Breath sounds equal, clear to auscultation bilaterally. No wheezes, and no crackles HEART: Regular rate and rhythm, normal S1 and S2, no murmurs, rubs or gallops NEUROLOGICAL: Cranial nerves II through XII grossly intact. Normal speech SKIN: Warm, Dry, normal turgor, no rashes or lesions noted. - Medical Decision Making 08/08/18 20:[address] Jennings to update on admission, case discussed with resident Dr. Tammi Bonds. 20:[address] Chan, made aware that Dr. Hope is hand alterations tailor, awaiting call back. <Jeff Jo - Last Filed: 08/08/18 20:53> Heart Score/ECG Review #1 08/08/18 20:19 NSR 73, with sinus arrhythmis, TWI with submm STD V3-V6, no jeff, RBBB, QTC 462 msec, no brugada, no HOCM, no WPW <Tej Edwards - Last Filed: 08/08/18 20:14> Attestations - Attestations 08/08/18 20:53 Documentation prepared by Jeff Jo, acting as hospital medical assistant for Tej Edwards MD. <Jeff Jo - Last Filed: 08/08/18 20:53>
[2018-08-08] MEDS ORDERED: LACTATED RINGERS SOLUTION 1000 ML INFUS.BAG IV ONE (20:23)
--- NOTE | 2018-08-08 20:50 | PDOC ---
History of Present Illness - General Chief Complaint: Syncope/Near Syncope Stated Complaint: SYNCOPE Time Seen by Provider: 08/08/18 19:14 - History of Present Illness Initial Comments: Nasir Benson is a 68yo man with a PMH of PE on Eliquis (2016), s/p total thyroidectomy, and HTN who presents from Dr Hyatt's office after a witnessed syncope event this afternoon. Per Dr Hyatt, who presented to the ED shortly after the patient, Mr Benson came for a routine follow up appointment today and was walking out of the office when he syncopized. Dr Hyatt reportsts that the patient was unresponsive, diaphoretic, and had a difficult to palpate pulse initially. Prior to starting CPR or any intervention, Mr Benson regained consciousness. At that point he said he felt fine and wanted to go home, but an ambulance was called. Mr Benson adamantly denies any loss of consciousness, however. He states that he was walking out of the doctor's office and started to feel lightheaded, so a nurse directed him to a chair. He states that he remembers the entire incident and never had any LOC, chest pain, palpitations, SOB, nausea/vomiting or any other associated symptoms. He does report a similar incident at home about 2 months ago but says he was never evaluated. Currently, Mr Benson denies any symptoms at all. He states that he feels well and has no complaints. Past History - Past Medical History Allergies/Adverse Reactions: Allergies Allergy/AdvReac Type Severity Reaction Status Date / Time No Known Allergies Allergy Verified 08/08/18 18:00 Home Medications: Ambulatory Orders Amlodipine Besylate 10 mg PO DAILY 01/22/17 Atenolol [Tenormin -] 50 mg PO DAILY 01/22/17 Lisinopril/Hydrochlorothiazide [Lisinopril-Hctz 20-12.5 mg Tab] 1 each PO DAILY 01/22/17 Dabigatran Etexilate Mesylate [Pradaxa -] 150 mg PO BID 06/08/17 Potassium Chloride [K-Dur -] 20 meq PO DAILY 08/03/17 Calcium Carbonate/Vitamin D3 [Calcium 500 + Vit D 200 Caplet] 1 each PO TID #30 tablet 08/21/17 Ibuprofen [Motrin -] 400 mg PO TID #21 tablet 08/21/17 Levothyroxine [Synthroid -] 175 mcg PO DAILY #7 tablet 08/22/17 Anemia: No Asthma: No Cancer: Yes (thyroid) Cardiac Disorders: Yes (RBBB,PVC) CVA: No COPD: No CHF: No Dementia: No Diabetes: No GI Disorders: No Disorders: No HTN: Yes Hypercholesterolemia: Yes Liver Disease: No Seizures: No Thyroid Disease: Yes - Surgical History Orthopedic Surgery: Yes (RIGHT LEG FRACTURE WITH HARDWARE) - Immunization History Immunization Up to Date: Yes - Suicide/Smoking/Psychosocial Hx Smoking History: Never smoked Have you smoked in the past 12 months: No Hx Alcohol Use: No Drug/Substance Use Hx: No Substance Use Type: None Hx Substance Use Treatment: No Review of Systems - Review of Systems Comments:: General: No fevers, no chills, no weight or appetite change, no malaise HEENT: No changes in vision, no changes in hearing, no congestion, no sore throat CV: No chest pain, no palpitations, no LE edema. See HPI Pulm: No SOB, no cough, no wheezing GI: No nausea or vomiting, no change in bowel habits, no melena : No frequency, no urgency, no dysuria Musc: No back pain, no joint swelling, no recent injury Skin: No rash, no lesions, no erythema Endo: No excessive thirst, no heat/cold intolerance Heme: No unusual bruising or bleeding, no swollen glands Neuro: No syncope, no numbness/tingling, no focal weakness Vasc: No claudication Psych: No recent change in mood, no SI or HI *Physical Exam - Vital Signs Last Vital Signs Temp Pulse Resp BP Pulse Ox 98.0 F 87 20 110/62 98 08/08/18 17:50 08/08/18 20:04 08/08/18 20:04 08/08/18 20:04 08/08/18 20:05 - Physical Exam Comments: General: Comfortable, no acute distress HEENT: PERRL, EOMI, MMM, voice normal, normal neck ROM, no LAD Cards: Irregular, no murmur appreciated Pulm: Comfortable on room air, clear to auscultation bilaterally Abd: Soft, nontender, nondistended : No CVA tenderness Ext: Atraumatic. No LE edema. ROM intact. Strength 5/5 and equal bilaterally Vasc: Extremities WWP. Skin: Normal color, no rashes or lesions Neuro: A&Ox3, CN grossly intact, normal speech, motor/sensory grossly intact and symmetric Psych: Mood appropriate to situation ED Treatment Course - LABORATORY CBC & Chemistry Diagram: 08/08/18 18:39 08/08/18 18:39 - ADDITIONAL ORDERS Additional order review: Laboratory Results 08/08/18 08/08/18 08/08/18 18:39 18:39 18:39 PT with INR 14.60 H INR 1.23 H PTT (Actin FS) 32.1 Sodium 138 Potassium 3.7 Chloride 94 L Carbon Dioxide 30 Anion Gap 14 BUN 29 H Creatinine 1.4 H Creat Clearance w eGFR 50.70 Random Glucose 143 H Calcium 9.1 Total Bilirubin 1.4 H AST 22 ALT 28 Alkaline Phosphatase 52 Creatine Kinase 62 Troponin I < 0.02 Total Protein 5.8 L Albumin 3.0 L 08/08/18 18:39 RBC 4.64 MCV 89.6 MCHC 35.9 RDW 15.2 MPV 8.1 - RADIOLOGY Radiology Studies Ordered: Category Date Time Status CHEST X-RAY PORTABLE* [RAD] Stat Radiology 08/08/18 18:28 Completed Medical Decision Making - Medical Decision Making 08/08/18 20:27 Nasir Benson is a 68yo man with a PMH of PE on Eliquis (2016), s/p total thyroidectomy, and HTN who presents from Dr Hyatt's office after a witnessed syncope event this afternoon. - CBC, CMP, trop, EKG, CXR ordered for evaluation of syncope - EKG completed - shows abnormal EKG with widened QRS to 128, sinus arrhythmia, RBBB, t-wave inversions in lateral leads. Similar morphology to previous EKGs - Call out to PMD, Dr Jennings 08/08/18 21:18 - Labs reviewed. Trop negative. Normal aside from slight SAVI with Cr 1.4 from 1.1 - Discussed with Dr Jennings. He reports that Mr Benson had 2 previous witnessed syncope events. Would like him admitted to telemetry for cardiac workup; hospitalist team to admit. Requests that a call is placed to Dr Fernandez for cardiology consult - [employer] to hospitalist team. Spoke to JERAMY Zepeda regarding admisison. 08/08/18 21:46 - Spoke to cardiology (on-call for Dr Fernandez). Agree with telemetry admission; please call in AM to make sure pt is seen by Dr Fernandez tomorrow. Recommending at least 2 additional trops and EKGs. Should have echo tomorrow. Seen and discussed with Dr Edwards. Tammi Bonds PGY1 *DC/Admit/Observation/Transfer Diagnosis at time of Disposition: Syncope - Discharge Dispostion Decision to Admit order: Yes - Referrals Referrals: Kevin Jennings MD [Primary Care Provider] - - Patient Instructions - Post Discharge Activity
--- NOTE | 2018-08-08 21:19 | HP ---
Admitting History and Physical - Primary Care Physician PCP: Kevin Jennings - Admission Chief Complaint: Dizziness, Diaphoresis, Weakness History of Present Illness: This is a 68 y/o man with a PMHx of: HTN, Goiter s/p Thyroidectomy (2017), PE ( on Pradaxa). Who presents to the ED sent in from Dr. Hyatt's office for witnessed Syncope. Patient speaks Bulgarian, [employer] line used #[id number]. Patient reports while at the surgeon's office he began getting diaphoretic, dizzy, and weak. Patient reports having a similar episode at home 2 months ago, without follow up. Patient denies head trauma, MCCARTY, SOB, chest pain, palpitations. Patient denies fever, chills, cough, AP, N/V/D, constipation, hematochezia, melena, hematuria, dysuria. 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.) Endocrine: Yes: Hypothyroidism - Past Surgical History Additional Past Surgical History: Thyroidectomy R-Humeral Repair - Smoking History Smoking history: Never smoked Have you smoked in the past 12 months: No - Alcohol/Substance Use Hx Alcohol Use: No History of Substance Use: reports: None - Social History ADL: Independent History of Recent Travel: No Home Medications - Allergies Allergies/Adverse Reactions: Allergies Allergy/AdvReac Type Severity Reaction Status Date / Time No Known Allergies Allergy Verified 08/08/18 18:00 - Home Medications Home Medications: Ambulatory Orders Amlodipine Besylate 10 mg PO DAILY 01/22/17 Atenolol [Tenormin -] 50 mg PO DAILY 01/22/17 Lisinopril/Hydrochlorothiazide [Lisinopril-Hctz 20-12.5 mg Tab] 1 each PO DAILY 01/22/17 Dabigatran Etexilate Mesylate [Pradaxa -] 150 mg PO BID 06/08/17 Potassium Chloride [K-Dur -] 20 meq PO DAILY 08/03/17 Calcium Carbonate/Vitamin D3 [Calcium 500 + Vit D 200 Caplet] 1 each PO TID #30 tablet 08/21/17 Ibuprofen [Motrin -] 400 mg PO TID #21 tablet 08/21/17 Levothyroxine [Synthroid -] 175 mcg PO DAILY #7 tablet 08/22/17 Family Disease History - Family Disease History Family History: Unremarkable Review of Systems - Review of Systems Constitutional: reports: Diaphoresis, Weakness Eyes: reports: No Symptoms HENT: reports: No Symptoms Neck: reports: No Symptoms Cardiovascular: reports: No Symptoms Respiratory: reports: No Symptoms Gastrointestinal: reports: No Symptoms Genitourinary: reports: No Symptoms Breasts: reports: No Symptoms Reported Musculoskeletal: reports: No Symptoms Integumentary: reports: No Symptoms Neurological: reports: Dizziness, Syncope, Weakness Endocrine: reports: No Symptoms Hematology/Lymphatic: reports: No Symptoms Psychiatric: reports: No Symptoms Physical Examination Vital Signs: Vital Signs Temperature 98.0 F 08/08/18 17:50 Pulse Rate 87 08/08/18 20:04 Respiratory Rate 20 08/08/18 20:04 Blood Pressure 110/62 08/08/18 20:04 O2 Sat by Pulse Oximetry (%) 98 08/08/18 20:05 Constitutional: Yes: Well Nourished, No Distress, Calm, Obese Eyes: Yes: WNL, Conjunctiva Clear, EOM Intact, PERRL HENT: Yes: WNL, Atraumatic, Normocephalic Neck: Yes: WNL, Supple, Trachea Midline Cardiovascular: Yes: WNL, Regular Rate and Rhythm, S1, S2 Respiratory: Yes: WNL, Regular, CTA Bilaterally Gastrointestinal: Yes: Normal Bowel Sounds, Soft, Abdomen, Obese ...Rectal Exam: Yes: Deferred Renal/: Yes: WNL Breast(s): Yes: WNL Musculoskeletal: Yes: WNL Extremities: Yes: WNL Edema: No Peripheral Pulses WNL: Yes Integumentary: Yes: WNL ...Motor Strength: WNL Psychiatric: Yes: WNL, Alert, Oriented Labs: CBC, BMP 08/08/18 18:39 08/08/18 18:39 Laboratory Results - last 24 hr 08/08/18 08/08/18 08/08/18 18:39 18:39 18:39 WBC 10.9 H RBC 4.64 Hgb 14.9 Hct 41.5 MCV 89.6 MCH 32.2 MCHC 35.9 RDW 15.2 Plt Count 345 MPV 8.1 PT with INR INR PTT (Actin FS) 32.1 Sodium 138 Potassium 3.7 Chloride 94 L Carbon Dioxide 30 Anion Gap 14 BUN 29 H Creatinine 1.4 H Creat Clearance w eGFR 50.70 Random Glucose 143 H Calcium 9.1 Total Bilirubin 1.4 H AST 22 ALT 28 Alkaline Phosphatase 52 Creatine Kinase 62 Troponin I < 0.02 Total Protein 5.8 L Albumin 3.0 L 08/08/18 18:39 WBC RBC Hgb Hct MCV MCH MCHC RDW Plt Count MPV PT with INR 14.60 H INR 1.23 H PTT (Actin FS) Sodium Potassium Chloride Carbon Dioxide Anion Gap BUN Creatinine Creat Clearance w eGFR Random Glucose Calcium Total Bilirubin AST ALT Alkaline Phosphatase Creatine Kinase Troponin I Total Protein Albumin Imaging - Results Chest X-ray: Report Reviewed, Image Reviewed EKG: Image Reviewed Problem List - Problems (1) Syncope Code(s): R55 - SYNCOPE AND COLLAPSE (2) HTN (hypertension) Code(s): I10 - ESSENTIAL (PRIMARY) HYPERTENSION (3) Hyperlipidemia Code(s): E78.5 - HYPERLIPIDEMIA, UNSPECIFIED (4) Pulmonary embolism Code(s): I26.99 - OTHER PULMONARY EMBOLISM WITHOUT ACUTE COR PULMONALE Qualifiers: Pulmonary embolism type: other Chronicity: acute Acute cor pulmonale presence: without acute cor pulmonale Qualified Code(s): I26.99 - Other pulmonary embolism without acute cor pulmonale (5) Hypothyroidism Code(s): E03.9 - HYPOTHYROIDISM, UNSPECIFIED (6) S/P thyroidectomy Code(s): E89.0 - POSTPROCEDURAL HYPOTHYROIDISM Assessment/Plan This is a 68 y/o man admitted to Telemetry for Syncope for further evaluation of their emergent condition. Plan: 1. Syncope Likely secondary to arrhythmia vs neurologic Continue cardiac monitoring Serial Enzymes EKG Sinus Arrhythmia with RBBB, inverted T waves in lateral leads, no change compared to prior study Appreciate Cardiology consult Echo Carotid Doppler Monitor CBC, BMP Fall Precautions 2. Hypertension Stable Monitor BP Continue home med Monitor renal function 3. Hypothyroidism s/p Thyroidectomy Continue home med 4. Pulmonary Embolism Hx Stable Continue Eliquis Monitor vitals 5. FEN PO fluids as tolerated Replete lytes prn Low Na Diet Code Status: Full Code Dispo: Requires Inpatient Admission Visit type - Emergency Visit Emergency Visit: Yes ED Registration Date: 08/08/18 Care time: The patient presented to the Emergency Department on the above date and was hospitalized for further evaluation of their emergent condition. - New Patient This patient is new to me today: Yes Date on this admission: 08/08/18 - Critical Care Critical Care patient: No
--- NOTE | 2018-08-09 01:18 | HOSP ---
Subjective - Review of Symptoms Events since last encounter: Hospitalist Encounter Was notified by the RN that the patient had a BRBPR after a BM. Physical Examination Vital Signs: Vital Signs Temperature 98.9 F 08/09/18 00:00 Pulse Rate 70 08/09/18 00:00 Respiratory Rate 20 08/09/18 00:00 Blood Pressure 107/70 08/09/18 00:00 O2 Sat by Pulse Oximetry (%) 99 08/09/18 00:00 Labs: CBC, BMP 08/08/18 18:39 08/08/18 18:39 Hospitalist Encounter Assessment: This is a 68 y/o man with a PMhx of: Hypothroid s/p Thyroidectomy (2017), HTN, PE (on Pradaxa, 2017). Admitted to Telemetry for Syncope for further evaluation of their emergent condition. Plan: Continue Tele monitoring Continue medication regimen Will order GI consult for GI Bleed Pepcid IV Stool Occult
[2018-08-09 06:21] VITALS: BMI 30.3
[2018-08-09 06:47] LABS: BASO % 0.4 % (0-2.0); HEMATOCRIT 36.9 % (35.4-49); HEMOGLOBIN 12.6 GM/dL (11.7-16.9); LYMPH % 20.5 % (8-40); MCH 30.9 pg (25.7-33.7); MCHC 34.2 g/dl (32.0-35.9); MEAN CELL VOLUME 90.5 fl (80-96); MEAN PLT VOLUME 8.4 fl (7.5-11.1); MONO % 15.3 % (3.8-10.2); NEUT % 63.8 % (42.8-82.8); PLATELET COUNT 231 K/MM3 (134-434); RBC 4.08 M/mm3 (4.00-5.60); RDW 15.2 % (11.9-15.9); WHITE BLOOD COUNT 8.4 K/mm3 (4.0-10.0)
[2018-08-09] MEDS ORDERED: FAMOTIDINE 20 MG/50 ML IVPB 20 MG/50 ML MG IVPB ONE (07:12)
[2018-08-09 07:34] LABS: ANION GAP 9 MMOL/L (8-16); BLOOD UREA NITROGEN 40 mg/dL (7-18); CALCIUM 8.6 mg/dL (8.5-10.1); CHLORIDE 96 mmol/L (98-107); CHOLESTEROL 122 mg/dL (50-200); CO2 30 mmol/L (21-32); CREATININE 0.9 mg/dL (0.55-1.3); GLUCOSE,RANDOM 119 mg/dL (74-106); HDL CHOLESTEROL 46 mg/dL (40-60); POTASSIUM 3.5 mmol/L (3.5-5.1); SODIUM 135 mmol/L (136-145); TRIGLYCERIDES 160 mg/dL (0-150)
--- NOTE | 2018-08-09 10:01 | CON.CARD ---
Consult Consult Specialty:: cardiology Reason for Consultation:: syncope - History of Present Illness Chief Complaint: Pt is alert and oriented (translation provided by forklift technician); no chest pain, dizziness, or palpitations. History of Present Illness: 68-year-old male (Uk[place]) with past medical history of thyroidectomy about a month ago for goiter, hypertension, DVT (2017)/pulmonary embolism on anticoagulation, s/p right humoral fracture repair, brought in by his endocrine surgeon for syncope. The patient was in his usual state of health and undergoing a routine follow-up appointment with his surgeon. Upon leaving the facility, the patient was feeling dizzy and was sent down by the nurse. The patient had a brief syncopal episode. Surgeon was concerned as he was unable to briefly feel pulse in the patient appeared diaphoretic and clammy. However, patient returned back to baseline. Denies chest pain or shortness of breath. States that he feels well but came at the insistence of his surgeon. Denies recent illnesses, fevers, chills, cough, vomiting. Reports adherence his medications. Given the syncope, finding is concerning for potential cardiac etiology. Patient currently denies any chest pain short of breath. However, we'll obtain labs including troponin. We'll place patient on environmental monitoring specialist and also in the patient to the hospital for syncope evaluation. - History Source History Provided By: Patient, Medical Record - Past Medical History Cardio/Vascular: Yes: Deep Vein Thrombosis, HTN, Hyperlipdemia, Mitral Insufficiency, Murmur, Other Pulmonary: Yes: Pulmonary Embolus Heme/Onc: Yes: Anemia Musculoskeletal: Yes: Other (H/O injury and fracture of right ankle reapired, as well as injury to right shoulder with paralysis/ weakness of right arm.) Endocrine: Yes: Hypothyroidism - Alcohol/Substance Use Hx Alcohol Use: No History of Substance Use: reports: None - Smoking History Smoking history: Never smoked Have you smoked in the past 12 months: No - Social History ADL: Independent History of Recent Travel: No Home Medications - Allergies Allergies/Adverse Reactions: Allergies Allergy/AdvReac Type Severity Reaction Status Date / Time No Known Allergies Allergy Verified 08/08/18 18:00 - Home Medications Home Medications: Ambulatory Orders Amlodipine Besylate 10 mg PO DAILY 01/22/17 Atenolol [Tenormin -] 50 mg PO DAILY 05/12/17 Family Disease History - Family Disease History Family History: Denies Review of Systems - Review of Systems Constitutional: reports: Weakness, Other (syncope) Eyes: reports: No Symptoms HENT: reports: No Symptoms Neck: reports: No Symptoms Cardiovascular: reports: Palpitations Respiratory: reports: SOB on Exertion Gastrointestinal: reports: No Symptoms Genitourinary: reports: No Symptoms Breasts: reports: No Symptoms Reported Musculoskeletal: reports: No Symptoms Integumentary: reports: No Symptoms Endocrine: reports: No Symptoms Hematology/Lymphatic: reports: No Symptoms Psychiatric: reports: No Symptoms - Risk Factors Known Risk Factors: Yes: Age, Gender, Hypertension, Other (s/p DVT/PE 2017;) Vital Signs: Vital Signs Temperature 98.8 F 08/09/18 06:00 Pulse Rate 58 L 08/09/18 06:00 Respiratory Rate 18 08/09/18 06:00 Blood Pressure 126/65 08/09/18 06:00 O2 Sat by Pulse Oximetry (%) 99 08/09/18 00:00 Constitutional: Yes: Calm Eyes: Yes: WNL HENT: Yes: WNL Neck: Yes: WNL Respiratory: Yes: Regular Gastrointestinal: Yes: Soft Renal/: No: Anuria Cardiovascular: Yes: Pulse Irregular JVD: No Carotid Bruit: No PMI: Non-Displaced Heart Sounds: Yes: S1, Split S2 Murmur: Yes: Systolic Murmur, Grade 2 Edema: No Peripheral Pulses WNL: Yes Integumentary: Yes: WNL Neurological: Yes: WNL Psychiatric: Yes: WNL - Other Data Labs, Other Data: CBC, BMP 08/09/18 05:30 08/09/18 05:30 INR, PTT INR 1.23 (0.83-1.09) H 08/08/18 18:39 Troponin, BNP 08/08/18 08/09/18 18:39 05:30 Troponin I < 0.02 < 0.02 Troponin, BNP 08/08/18 08/09/18 18:39 05:30 Troponin I < 0.02 < 0.02 Abnormal Lab Results 08/08/18 08/08/18 08/08/18 18:39 18:39 18:39 WBC 10.9 H Monocytes % PT with INR 14.60 H INR 1.23 H Sodium Chloride 94 L BUN 29 H Creatinine 1.4 H Random Glucose 143 H Total Bilirubin 1.4 H Total Protein 5.8 L Albumin 3.0 L Triglycerides 08/09/18 08/09/18 05:30 05:30 WBC Monocytes % 15.3 H D PT with INR INR Sodium 135 L Chloride 96 L BUN 40 H Creatinine Random Glucose 119 H Total Bilirubin Total Protein Albumin Triglycerides 160 H Ejection Fraction %: LVEF > or = 40 % Imaging - Results Chest X-ray: Image Reviewed (no acute pathology) Problem List - Problems (1) RBBB Code(s): I45.10 - UNSPECIFIED RIGHT BUNDLE-BRANCH BLOCK (2) Hypothyroidism Assessment/Plan: s/p thyroidectomy; f/u with PMD, 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 TSH pending. Code(s): E03.9 - HYPOTHYROIDISM, UNSPECIFIED Qualifiers: Hypothyroidism type: acquired Qualified Code(s): E03.9 - Hypothyroidism, unspecified (3) Syncope Assessment/Plan: TNI < 0.02 x 2. elevated BUN/ f/u after hydration. Orthostatic vital sign checks. F/u TFTs. ECHO for LVEF, wall motion; f/u mitral valve findings (hx ?torn cordae tendonie , r/o MV vegetation, though no signs of endocarditis) Carotid artery US. Consider stress MIBI ( lateral wall STT changes; multiple CAD risks; now with 2nd episode of syncope). Code(s): R55 - SYNCOPE AND COLLAPSE Qualifiers: Syncope type: unspecified Qualified Code(s): R55 - Syncope and collapse (4) HTN (hypertension) Code(s): I10 - ESSENTIAL (PRIMARY) HYPERTENSION Qualifiers: Hypertension type: essential hypertension Qualified Code(s): I10 - Essential (primary) hypertension (5) Mediastinal goiter Code(s): E04.8 - OTHER SPECIFIED NONTOXIC GOITER (6) Occlusion of right popliteal artery Code(s): I74.3 - EMBOLISM AND THROMBOSIS OF ARTERIES OF THE LOWER EXTREMITIES (7) Pulmonary embolism Assessment/Plan: Hx significant PE; on "permanent"anticoagulation (has been on Pradaxa). Code(s): I26.99 - OTHER PULMONARY EMBOLISM WITHOUT ACUTE COR PULMONALE Qualifiers: Pulmonary embolism type: other Chronicity: acute Acute cor pulmonale presence: without acute cor pulmonale Qualified Code(s): I26.99 - Other pulmonary embolism without acute cor pulmonale (8) S/P thyroidectomy Code(s): E89.0 - POSTPROCEDURAL HYPOTHYROIDISM (9) Irregular heart rate Assessment/Plan: EKG: NSR with marked sinus arrhythmia; r/o AF (pt is on anticoagulation for PE, and has been on atenolol for BP and HR control). F/u on telemetry, and consider EP workup (syncope); ECHO for LVEF, chamber sizes. Stres MIBI. Code(s): I49.9 - CARDIAC ARRHYTHMIA, UNSPECIFIED
--- NOTE | 2018-08-09 11:56 | ECHO ---
Name: WINTER PRIETO Exam:Adult Echocardiogram Study Date: 08/09/2018 08:40 AM Age: 68 yrs Reason For Study: SYNCOPE Height: 64 in Weight: 185 lb BSA: 1.9 m2 MMode/2D Measurements & Calculations IVSd: 1.00 cm Ao root diam: 3.4 cm LVIDd: 5.1 cm ACS: 2.1 cm LVIDs: 3.9 cm LVPWd: 1.5 cm EDV(Teich): 124.8 ml LVOT diam: 2.2 cm ESV(Teich): 67.3 ml Doppler Measurements & Calculations TR max joseluis: 189.4 cm/sec PI end-d joseluis: 138.2 cm/sec TR max P.0 mmHg RVSP(TR): 31.0 mmHg Med Peak E' Joseluis: 6.4 cm/sec RAP systole: 10.0 mmHg Lat Peak E' Joseluis: 6.5 cm/sec Procedure A two-dimensional transthoracic echocardiogram with color flow and Doppler was performed. The patient was in normal sinus rhythm during the exam. The patient had frequent PACs during the exam. Left Ventricle The left ventricle is grossly normal size. Left ventricular systolic function is normal. Ejection Fra ction = 55%. Right Ventricle The right ventricle is not well visualized. The right ventricle is mildly dilated. The right ventricu lar systolic function is grossly normal. Atria The left atrial size is normal. Right atrium not well visualized. Mitral Valve The mitral valve is normal. There is no mitral regurgitation noted. Tricuspid Valve The tricuspid valve is normal. There is mild tricuspid regurgitation. Right ventricular systolic pres sure is elevated at 40-50mmHg. Aortic Valve The aortic valve is normal in structure and function. The aortic valve is trileaflet. No aortic regur gitation is present. Pulmonic Valve The pulmonic valve is not well visualized. The pulmonic valve is not well seen, but is grossly normal . Trace pulmonic valvular regurgitation. Great Vessels The aortic root is normal size. Pericardium/Pleura Trivial pericardial effusion not hemodynamically significant. Interpretation Summary Left ventricular systolic function is normal. The right ventricle is not well visualized. The right ventricle is mildly dilated. The right ventricular systolic function is grossly normal. There is mild tricuspid regurgitation. Right ventricular systolic pressure is elevated at 40-50mmHg. Trace pulmonic valvular regurgitation. Trivial pericardial effusion not hemodynamically significant MD Rene Lancaster 08/09/2018 11:56 AM
--- NOTE | 2018-08-09 12:34 | EKG ---
Test Reason : Blood Pressure : / mmHG Vent. Rate : 073 BPM Atrial Rate : 073 BPM P-R Int : 144 ms QRS Dur : 128 ms QT Int : 420 ms P-R-T Axes : 049 254 003 degrees QTc Int : 462 ms SINUS RHYTHM WITH MARKED SINUS ARRHYTHMIA PREMATURE ATRIAL COMPLEXES RIGHT BUNDLE BRANCH BLOCK T WAVE ABNORMALITY, CONSIDER LATERAL ISCHEMIA ABNORMAL ECG Confirmed by MD FAZAL, MADONNA ([id number]) on 08/09/2018 12:34:23 PM Referred By: Confirmed By:MADONNA DIEHL MD
--- NOTE | 2018-08-09 12:34 | HP ---
Admitting History and Physical - Admission Chief Complaint: 68 y.o M had a witness syncope at the office of Dr Hyatt yesterday. This is a second episode of syncope this year. No seizure activity, no postictal state, no tongue bite, incontinense. BIBEMS to [facility] and admitted for further management. History of Present Illness: SVT Previous episode of syncope x1. B/l Pulmonary embolism 2017- now on NOAC. Subsequent CT chest showed resolution of PE. HTN MNG , including left substernal mass with tracheal compression. Accident at the job 10 yrs ago with injury of the right ankle and and the right shoulder. Episode of urinary retention. * History Source: Patient, Medical Record Limitations to Obtaining History: No Limitations - Past Medical History Cardiovascular: Yes: Deep Vein Thrombosis, HTN, Hyperlipdemia, Mitral Insufficiency, Murmur, Other Pulmonary: Yes: Pulmonary Embolus Heme/Onc: Yes: Anemia Musculoskeletal: Yes: Other (H/O injury and fracture of right ankle reapired, as well as injury to right shoulder with paralysis/ weakness of right arm.) Endocrine: Yes: Hypothyroidism - Past Surgical History Additional Past Surgical History: Thyroidectomy R-Humeral Repair - Smoking History Smoking history: Never smoked Have you smoked in the past 12 months: No - Alcohol/Substance Use Hx Alcohol Use: No History of Substance Use: reports: None - Social History ADL: Independent History of Recent Travel: No Home Medications - Allergies Allergies/Adverse Reactions: Allergies Allergy/AdvReac Type Severity Reaction Status Date / Time No Known Allergies Allergy Verified 08/08/18 18:00 - Home Medications Home Medications: Ambulatory Orders Amlodipine Besylate 10 mg PO DAILY 01/22/17 Atenolol [Tenormin -] 50 mg PO DAILY 01/22/17 Family Disease History - Family Disease History Family History: Unremarkable Review of Systems - Review of Systems Constitutional: reports: No Symptoms Eyes: reports: No Symptoms HENT: reports: No Symptoms Neck: reports: No Symptoms Cardiovascular: reports: Palpitations, Shortness of Breath. denies: Chest Pain Respiratory: reports: Cough, Exercise Intolerance, SOB, SOB on Exertion. denies : Hemoptysis, Orthopnea, PND, Wheezing Gastrointestinal: denies: Abdominal Pain, Bloating, Indigestion Genitourinary: denies: Burning, Discharge, Dysuria Breasts: reports: No Symptoms Reported Musculoskeletal: reports: Extremity Pain Neurological: reports: No Symptoms Endocrine: reports: No Symptoms Hematology/Lymphatic: reports: No Symptoms Psychiatric: reports: No Symptoms Physical Examination Vital Signs: Vital Signs Temperature 98 F 08/09/18 10:00 Pulse Rate 75 08/09/18 11:39 Respiratory Rate 18 08/09/18 10:00 Blood Pressure 124/60 08/09/18 11:39 O2 Sat by Pulse Oximetry (%) 99 08/09/18 00:00 Constitutional: Yes: No Distress, Anxious, Obese Eyes: Yes: Conjunctiva Clear, EOM Intact HENT: Yes: Atraumatic, Normocephalic Cardiovascular: Yes: Pulse Irregular, Murmur, S1, S2. No: Bruit, JVD, Rub Respiratory: Yes: Regular, CTA Bilaterally. No: Accessory Muscle Use Gastrointestinal: Yes: Normal Bowel Sounds, Soft, Abdomen, Obese. No: Ascites ...Rectal Exam: Yes: Deferred Renal/: No: Anuria, Bladder Distention, CVA Tenderness - Left, CVA Tenderness - Right Breast(s): Yes: WNL Extremities: Yes: Other (RUE and RLE status post surgeries) Edema: No Integumentary: Yes: WNL Neurological: Yes: WNL, Alert, Oriented ...Motor Strength: WNL Psychiatric: Yes: WNL Labs: CBC, BMP 08/09/18 05:30 08/09/18 05:30 Imaging - Results Chest X-ray: Report Reviewed Problem List - Problems (1) Hypothyroidism Assessment/Plan: Synthroid 125 mcg QD EST tomorrow Follow ECHO Discussed with cardiology Code(s): E03.9 - HYPOTHYROIDISM, UNSPECIFIED Qualifiers: Hypothyroidism type: acquired Qualified Code(s): E03.9 - Hypothyroidism, unspecified (2) Irregular heart rate Assessment/Plan: SVT, to R/O AFIB Continue telemetry , A/C Code(s): I49.9 - CARDIAC ARRHYTHMIA, UNSPECIFIED (3) Pulmonary embolism Assessment/Plan: Continue Xarelto 20 mg QD Code(s): I26.99 - OTHER PULMONARY EMBOLISM WITHOUT ACUTE COR PULMONALE Qualifiers: Pulmonary embolism type: other Chronicity: acute Acute cor pulmonale presence: without acute cor pulmonale Qualified Code(s): I26.99 - Other pulmonary embolism without acute cor pulmonale (4) HTN (hypertension) Code(s): I10 - ESSENTIAL (PRIMARY) HYPERTENSION (5) Pulmonary arterial hypertension Assessment/Plan: Amlodipine, Atenolol, follow BP Code(s): I27.2 - OTHER SECONDARY PULMONARY HYPERTENSION * DO NOT USE * (6) ASHD (arteriosclerotic heart disease) Assessment/Plan: EST Consider Cardiac cath Code(s): I25.10 - ATHSCL HEART DISEASE OF [place] CORONARY ARTERY W/O ANG PCTRS
[2018-08-09] MEDS ORDERED: ATENOLOL 50 MG TABLET (FP) PO ONE (14:30)
[2018-08-09 14:38] LABS: URINE APPEARANCE CLEAR; URINE BILIRUBIN NEGATIVE (<2.0 mg/dL); URINE COLOR LTYELLOW; URINE GLUCOSE (UA) NEGATIVE (NEGATIVE); URINE KETONE TRACE (NEGATIVE); URINE LEUK ESTERASE NEGATIVE (NEGATIVE); URINE NITRITE NEGATIVE (NEGATIVE); URINE PROTEIN NEGATIVE (NEGATIVE)
[2018-08-09] MEDS: PANTOPRAZOLE 40 MG TABLET (FP) PO SCH (14:48)
--- NOTE | 2018-08-09 15:33 | CONS ---
DATE OF CONSULTATION: 08/09/2018 GASTROINTESTINAL CONSULTATION The patient is a 68-year-old [place] male with a past medical history of a thyroidectomy for goiter, hypertension, DVT in 2017 with pulmonary embolism on Pradaxa, status post right humeral fracture repair, who was admitted to the hospital after having an episode of syncope. Apparently, the patient was in his usual state of health and had a followup appointment for his endocrine surgery. Upon leaving that facility, he felt weak and dizzy and had a brief syncopal episode. Shortly thereafter, he returned to baseline. He is currently being evaluated for syncope during this admission. Earlier this morning, he was noted by staff to have an episode of hematochezia. Currently, the patient denies any history of GI bleed, abdominal pain, nausea, vomiting, hematemesis or melena. He claims he has never had an upper endoscopy or colonoscopy in the past. PAST MEDICAL AND SURGICAL HISTORY: These are as listed in the HPI with the addition of mitral insufficiency and hyperlipidemia. SOCIAL HISTORY: He does not smoke, drink or use drugs. FAMILY HISTORY: No history of GI or malignancy. ALLERGIES: No known drug allergies. REVIEW OF SYSTEMS: Negative except for pertinent positives in the HPI. HOME MEDICATIONS: These were reviewed and include amlodipine, atenolol, lisinopril, hydrochlorothiazide, Pradaxa, K-Dur, calcium, ibuprofen and levothyroxine. PHYSICAL EXAMINATION: Vital Signs: Temperature 98, pulse 60, blood pressure 128/80, oxygen saturation 99% on room air. General: The patient is in no acute distress. HEENT: Anicteric sclerae. Cardiovascular: S1, S2. Regular rate and rhythm. Lungs: Bilaterally clear to auscultation. Abdomen: Soft and nontender. Extremities: No edema. Neurologic: Neurologically intact. LABS: White blood cell count was 8.4, hemoglobin 12, hematocrit 36. Yesterday, hemoglobin was 14.9 and creatinine was 41. Platelet count 231, INR 1.2, sodium 135, potassium 3.5, BUN 40, creatinine 0.9, hemoglobin A1c of 5. Troponins are negative. The patient had an echocardiogram that revealed mildly dilated RV, mild TR and trace pulmonic valvular regurgitation, trivial pericardial effusion that was not hemodynamically relevant and LV function was normal on the exam. The patient did not have any abdominal imaging. IMPRESSION: Episode of hematochezia in the setting of anticoagulation with Pradaxa, gastrointestinal blood loss secondary to diverticulosis, Angoiectasias, hemorrhoids and adenocarcinoma should be excluded. The patient is currently being worked up for the episode of syncope and has a stress test pending. Once he is cleared from a cardiovascular standpoint, he would benefit from a diagnostic upper endoscopy and colonoscopy. At this time, there is no sign of an overt GI bleed. RECOMMENDATION: -Protonix 40 mg p.o. daily. -Clear Liquid diet as tolerated. Trend h/h q12 If he has no further episodes of GI bleed may advance diet as tolerated. -Avoid NSAID -Hold A/c - Bleeding scan if further episode of hematochezia DO MEGAN VERONICA/[id number] MTDD
[2018-08-09] MEDS: RIVAROXABAN 20 MG TABLET PO SCH (17:22)
[2018-08-09] MEDS: ATORVASTATIN CA 10 MG TABLET (FP) PO SCH (23:11)
[2018-08-10] MEDS: LEVOTHYROXINE NA 125 MCG TABLET (FP) PO SCH (06:38)
--- NOTE | 2018-08-10 08:14 | PN ---
Progress Note, Physician Chief Complaint: No episodes of syncope, or chest pain. Noted episodes of bradicardia on a monitor History of Present Illness: SVT Previous episode of syncope x1. B/l Pulmonary embolism 2017- now on NOAC. Subsequent CT chest showed resolution of PE. HTN MNG , including left substernal mass with tracheal compression. Accident at the job 10 yrs ago with injury of the right ankle and and the right shoulder. Episode of urinary retention. History GI bleed - Current Medication List Current Medications: Active Medications Amlodipine Besylate (Norvasc -) 10 mg PO DAILY [facility] Atenolol (Tenormin -) 50 mg PO DAILY [facility] Atorvastatin Calcium (Lipitor -) 10 mg PO HS [facility] Last Admin: 08/09/18 23:11 Dose: 10 mg Levothyroxine Sodium (Synthroid -) 125 mcg PO DAILY@0700 [facility] Last Admin: 08/10/18 06:38 Dose: 125 mcg Pantoprazole Sodium (Protonix -) 40 mg PO DAILY [facility] Last Admin: 08/09/18 14:48 Dose: 40 mg Rivaroxaban (Xarelto -) 20 mg PO DAILY@1800 [facility] Last Admin: 08/09/18 17:22 Dose: 20 mg - Objective Vital Signs: Vital Signs Temperature 98.1 F 08/10/18 02:00 Pulse Rate 53 L 08/10/18 02:00 Respiratory Rate 18 08/10/18 02:00 Blood Pressure 125/63 08/10/18 02:00 O2 Sat by Pulse Oximetry (%) 98 08/09/18 20:41 Constitutional: Yes: No Distress, Anxious Eyes: Yes: Conjunctiva Clear, EOM Intact HENT: Yes: Atraumatic, Normocephalic Neck: Yes: Supple, Trachea Midline, Other (S/P radical thyrodectomy) Cardiovascular: Yes: Pulse Irregular (APC, SVT) Respiratory: Yes: Regular, CTA Bilaterally. No: Cough Gastrointestinal: Yes: Normal Bowel Sounds, Soft. No: Abdomen, Obese, Ascites Genitourinary: No: Anuria, Bladder Distention, CVA Tenderness - Left, CVA Tenderness - Right Breast(s): Yes: WNL Extremities: Yes: Other (S/P RUE, RLE SX). No: Amputation, Calf Tenderness, Cold Edema: No Integumentary: Yes: WNL Neurological: Yes: WNL Psychiatric: Yes: WNL Labs: CBC, BMP 08/09/18 05:30 08/09/18 05:30 INR, PTT INR 1.23 (0.83-1.09) H 08/08/18 18:39 Problem List - Problems (1) Hypothyroidism Assessment/Plan: Synthroid 125 mcg QD EST tomorrow Follow ECHO Discussed with cardiology Code(s): E03.9 - HYPOTHYROIDISM, UNSPECIFIED Qualifiers: Hypothyroidism type: acquired Qualified Code(s): E03.9 - Hypothyroidism, unspecified (2) Irregular heart rate Assessment/Plan: SVT, to R/O AFIB Continue telemetry , A/C Code(s): I49.9 - CARDIAC ARRHYTHMIA, UNSPECIFIED (3) Pulmonary embolism Assessment/Plan: Continue Xarelto 20 mg QD Code(s): I26.99 - OTHER PULMONARY EMBOLISM WITHOUT ACUTE COR PULMONALE Qualifiers: Pulmonary embolism type: other Chronicity: acute Acute cor pulmonale presence: without acute cor pulmonale Qualified Code(s): I26.99 - Other pulmonary embolism without acute cor pulmonale (4) HTN (hypertension) Code(s): I10 - ESSENTIAL (PRIMARY) HYPERTENSION Qualifiers: Hypertension type: essential hypertension Qualified Code(s): I10 - Essential (primary) hypertension (5) Pulmonary arterial hypertension Assessment/Plan: Amlodipine, Atenolol, follow BP Code(s): I27.2 - OTHER SECONDARY PULMONARY HYPERTENSION * DO NOT USE * (6) ASHD (arteriosclerotic heart disease) Assessment/Plan: EST Consider Cardiac cath Code(s): I25.10 - ATHSCL HEART DISEASE OF [place] CORONARY ARTERY W/O ANG PCTRS (7) GI (gastrointestinal bleed) Assessment/Plan: PPI and EGD by GI is planned. Code(s): K92.2 - GASTROINTESTINAL HEMORRHAGE, UNSPECIFIED Qualifiers: GI bleed type/associated pathology: unspecified gastrointestinal hemorrhage type Qualified Code(s): K92.2 - Gastrointestinal hemorrhage, unspecified (8) Syncope Assessment/Plan: Recurrent episodes of syncope. EST today Consider EP. Code(s): R55 - SYNCOPE AND COLLAPSE Qualifiers: Syncope type: unspecified Qualified Code(s): R55 - Syncope and collapse
[2018-08-10] MEDS ORDERED: ATENOLOL 50 MG TABLET (FP) PO SCH (10:00)
--- NOTE | 2018-08-10 11:22 | PN ---
Progress Note, Physician History of Present Illness: 68-year-old male ([place]) with past medical history of thyroidectomy about a month ago for goiter, hypertension, DVT (2017)/pulmonary embolism on anticoagulation, s/p right humoral fracture repair, brought in by his endocrine surgeon for syncope. The patient was in his usual state of health and undergoing a routine follow-up appointment with his surgeon. Upon leaving the facility, the patient was feeling dizzy and was sent down by the nurse. The patient had a brief syncopal episode. Surgeon was concerned as he was unable to briefly feel pulse in the patient appeared diaphoretic and clammy. However, patient returned back to baseline. Denies chest pain or shortness of breath. States that he feels well but came at the insistence of his surgeon. Denies recent illnesses, fevers, chills, cough, vomiting. Reports adherence his medications. Given the syncope, finding is concerning for potential cardiac etiology. Patient currently denies any chest pain short of breath. However, we'll obtain labs including troponin. We'll place patient on cardiac rn and also in the patient to the hospital for syncope evaluation. - Current Medication List Current Medications: Active Medications Amlodipine Besylate (Norvasc -) 10 mg PO DAILY [facility] Atenolol (Tenormin -) 50 mg PO DAILY [facility] Atorvastatin Calcium (Lipitor -) 10 mg PO HS [facility] Last Admin: 08/09/18 23:11 Dose: 10 mg Levothyroxine Sodium (Synthroid -) 125 mcg PO DAILY@0700 [facility] Last Admin: 08/10/18 06:38 Dose: 125 mcg Pantoprazole Sodium (Protonix -) 40 mg PO DAILY [facility] Last Admin: 08/09/18 14:48 Dose: 40 mg Rivaroxaban (Xarelto -) 20 mg PO DAILY@1800 [facility] Last Admin: 08/09/18 17:22 Dose: 20 mg - Objective Vital Signs: Vital Signs Temperature 98 F 08/10/18 09:00 Pulse Rate 50 L 08/10/18 09:00 Respiratory Rate 18 08/10/18 09:00 Blood Pressure 120/57 L 08/10/18 09:00 O2 Sat by Pulse Oximetry (%) 98 08/09/18 20:41 Eyes: Yes: WNL, Conjunctiva Clear, EOM Intact HENT: Yes: WNL, Atraumatic, Normocephalic Neck: Yes: WNL, Supple, Trachea Midline Cardiovascular: Yes: WNL, Regular Rate and Rhythm Respiratory: Yes: WNL, Regular, CTA Bilaterally Gastrointestinal: Yes: WNL, Normal Bowel Sounds Genitourinary: Yes: WNL Musculoskeletal: Yes: WNL Extremities: Yes: WNL Edema: No Integumentary: Yes: WNL Neurological: Yes: WNL, Alert, Oriented ...Motor Strength: WNL Psychiatric: Yes: WNL Labs: CBC, BMP 08/09/18 05:30 08/09/18 05:30 INR, PTT INR 1.23 (0.83-1.09) H 08/08/18 18:39 Assessment/Plan - Problems (1) RBBB Code(s): I45.10 - UNSPECIFIED RIGHT BUNDLE-BRANCH BLOCK (2) Hypothyroidism Assessment/Plan: s/p 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 Code(s): E03.9 - HYPOTHYROIDISM, UNSPECIFIED Qualifiers: Hypothyroidism type: acquired Qualified Code(s): E03.9 - Hypothyroidism, unspecified (3) Syncope Assessment/Plan: TNI < 0.02 x 2. elevated BUN/ f/u after hydration. Orthostatic vital sign checks. F/u TFTs. ECHO for LVEF, wall motion; f/u mitral valve findings (hx ?torn cordae tendonie , r/o MV vegetation, though no signs of endocarditis) Carotid artery US. Consider stress MIBI ( lateral wall STT changes; multiple CAD risks; now with 2nd episode of syncope). Code(s): R55 - SYNCOPE AND COLLAPSE Qualifiers: Syncope type: unspecified Qualified Code(s): R55 - Syncope and collapse (4) HTN (hypertension) Code(s): I10 - ESSENTIAL (PRIMARY) HYPERTENSION Qualifiers: Hypertension type: essential hypertension Qualified Code(s): I10 - Essential (primary) hypertension (5) Mediastinal goiter Code(s): E04.8 - OTHER SPECIFIED NONTOXIC GOITER (6) Occlusion of right popliteal artery Code(s): I74.3 - EMBOLISM AND THROMBOSIS OF ARTERIES OF THE LOWER EXTREMITIES (7) Pulmonary embolism Assessment/Plan: Hx significant PE; on "permanent"anticoagulation (has been on Pradaxa). Code(s): I26.99 - OTHER PULMONARY EMBOLISM WITHOUT ACUTE COR PULMONALE Qualifiers: Pulmonary embolism type: other Chronicity: acute Acute cor pulmonale presence: without acute cor pulmonale Qualified Code(s): I26.99 - Other pulmonary embolism without acute cor pulmonale (8) S/P thyroidectomy Code(s): E89.0 - POSTPROCEDURAL HYPOTHYROIDISM (9) Irregular heart rate Assessment/Plan: EKG: NSR with marked sinus arrhythmia; r/o AF (pt is on anticoagulation for PE, and has been on atenolol for BP and HR control). F/u on telemetry, and consider EP workup (syncope); ECHO for LVEF, chamber sizes. Stres MIBI unable to walk on the treadmill. wll do Lexiscan MIBI after carotid artery stenosis r/o with c. duplex study. Code(s): I49.9 - CARDIAC ARRHYTHMIA, UNSPECIFIED
[2018-08-10] MEDS: amLODIPine BESYLATE 10 MG TABLET (FP) PO SCH (12:24)
[2018-08-10] MEDS: PANTOPRAZOLE 40 MG TABLET (FP) PO SCH (12:24)
--- NOTE | 2018-08-10 12:46 | PN ---
Progress Note, Physician Chief Complaint: denies any GI complaints arrythmia noted - Current Medication List Current Medications: Active Medications Amlodipine Besylate (Norvasc -) 10 mg PO DAILY [facility] Last Admin: 08/10/18 12:24 Dose: 10 mg Atenolol (Tenormin -) 50 mg PO DAILY [facility] Last Admin: 08/10/18 12:24 Dose: 50 mg Atorvastatin Calcium (Lipitor -) 10 mg PO HS [facility] Last Admin: 08/09/18 23:11 Dose: 10 mg Levothyroxine Sodium (Synthroid -) 125 mcg PO DAILY@0700 [facility] Last Admin: 08/10/18 06:38 Dose: 125 mcg Pantoprazole Sodium (Protonix -) 40 mg PO DAILY [facility] Last Admin: 08/10/18 12:24 Dose: 40 mg Rivaroxaban (Xarelto -) 20 mg PO DAILY@1800 [facility] Last Admin: 08/09/18 17:22 Dose: 20 mg - Objective Vital Signs: Vital Signs Temperature 98 F 08/10/18 09:00 Pulse Rate 50 L 08/10/18 09:00 Respiratory Rate 18 08/10/18 09:00 Blood Pressure 120/57 L 08/10/18 09:00 O2 Sat by Pulse Oximetry (%) 98 08/09/18 20:41 Constitutional: Yes: Well Nourished, No Distress, Calm Eyes: Yes: WNL HENT: Yes: WNL Neck: Yes: WNL Cardiovascular: Yes: WNL, Pulse Irregular Respiratory: Yes: WNL, Regular, CTA Bilaterally Gastrointestinal: Yes: WNL, Normal Bowel Sounds, Soft Edema: No Labs: CBC, BMP 08/09/18 05:30 08/09/18 05:30 INR, PTT INR 1.23 (0.83-1.09) H 08/08/18 18:39 Problem List - Problems (1) GI (gastrointestinal bleed) Assessment/Plan: c/w PPI therapy monitor h/h daily while hospitalized once cleared from a cardiac perspective he would benefit from a diagnostic egd / colonoscopy. Code(s): K92.2 - GASTROINTESTINAL HEMORRHAGE, UNSPECIFIED Qualifiers: GI bleed type/associated pathology: unspecified gastrointestinal hemorrhage type Qualified Code(s): K92.2 - Gastrointestinal hemorrhage, unspecified (2) Irregular heart rate Code(s): I49.9 - CARDIAC ARRHYTHMIA, UNSPECIFIED (3) Syncope Code(s): R55 - SYNCOPE AND COLLAPSE Qualifiers: Syncope type: unspecified Qualified Code(s): R55 - Syncope and collapse
[2018-08-10] MEDS: RIVAROXABAN 20 MG TABLET PO SCH (17:51)
[2018-08-10] MEDS: ATORVASTATIN CA 10 MG TABLET (FP) PO SCH (21:50)
[2018-08-11] MEDS: LEVOTHYROXINE NA 125 MCG TABLET (FP) PO SCH (06:10)
--- NOTE | 2018-08-11 07:50 | PN ---
Progress Note, Physician Chief Complaint: NO syncopal episodes. Carotid Dupplex-no significant stenosis. EST-today 2 nd part GI consult appreciated History of Present Illness: SVT Previous episode of syncope x1. B/l Pulmonary embolism 2017- now on NOAC. Subsequent CT chest showed resolution of PE. HTN MNG , including left substernal mass with tracheal compression. Accident at the job 10 yrs ago with injury of the right ankle and and the right shoulder. Episode of urinary retention. History GI bleed - Current Medication List Current Medications: Active Medications Amlodipine Besylate (Norvasc -) 10 mg PO DAILY [facility] Last Admin: 08/10/18 12:24 Dose: 10 mg Atenolol (Tenormin -) 50 mg PO DAILY [facility] Last Admin: 08/10/18 12:24 Dose: 50 mg Atorvastatin Calcium (Lipitor -) 10 mg PO HS [facility] Last Admin: 08/10/18 21:50 Dose: 10 mg Levothyroxine Sodium (Synthroid -) 125 mcg PO DAILY@0700 [facility] Last Admin: 08/11/18 06:10 Dose: 125 mcg Pantoprazole Sodium (Protonix -) 40 mg PO DAILY [facility] Last Admin: 08/10/18 12:24 Dose: 40 mg Rivaroxaban (Xarelto -) 20 mg PO DAILY@1800 [facility] Last Admin: 08/10/18 17:51 Dose: 20 mg - Objective Vital Signs: Vital Signs Temperature 98.1 F 08/11/18 06:00 Pulse Rate 57 L 08/11/18 06:00 Respiratory Rate 20 08/11/18 06:00 Blood Pressure 117/58 L 08/11/18 06:00 O2 Sat by Pulse Oximetry (%) 97 08/10/18 21:00 Constitutional: Yes: No Distress, Calm Eyes: Yes: Conjunctiva Clear, EOM Intact HENT: Yes: Atraumatic, Normocephalic Neck: Yes: Supple, Trachea Midline. No: Lymphadenopathy Cardiovascular: Yes: Pulse Irregular (APC), Murmur, S1, S2. No: Bradycardia, Tachycardia, JVD Gastrointestinal: Yes: Normal Bowel Sounds ...Rectal Exam: Yes: Deferred Genitourinary: No: Anuria, Bladder Distention, CVA Tenderness - Left, CVA Tenderness - Right Breast(s): Yes: WNL Musculoskeletal: Yes: WNL Extremities: Yes: WNL Integumentary: Yes: WNL Neurological: Yes: WNL ...Motor Strength: WNL Psychiatric: Yes: WNL Labs: CBC, BMP 08/09/18 05:30 08/09/18 05:30 INR, PTT INR 1.23 (0.83-1.09) H 08/08/18 18:39 Problem List - Problems (1) Hypothyroidism Assessment/Plan: Synthroid 125 mcg QD EST tomorrow Follow ECHO Discussed with cardiology Code(s): E03.9 - HYPOTHYROIDISM, UNSPECIFIED Qualifiers: Hypothyroidism type: acquired Qualified Code(s): E03.9 - Hypothyroidism, unspecified (2) Irregular heart rate Assessment/Plan: SVT, to R/O AFIB Continue telemetry , A/C Code(s): I49.9 - CARDIAC ARRHYTHMIA, UNSPECIFIED (3) Pulmonary embolism Assessment/Plan: Continue Xarelto 20 mg QD Code(s): I26.99 - OTHER PULMONARY EMBOLISM WITHOUT ACUTE COR PULMONALE Qualifiers: Pulmonary embolism type: other Chronicity: acute Acute cor pulmonale presence: without acute cor pulmonale Qualified Code(s): I26.99 - Other pulmonary embolism without acute cor pulmonale (4) HTN (hypertension) Code(s): I10 - ESSENTIAL (PRIMARY) HYPERTENSION Qualifiers: Hypertension type: essential hypertension Qualified Code(s): I10 - Essential (primary) hypertension (5) Pulmonary arterial hypertension Assessment/Plan: Amlodipine, Atenolol, follow BP Code(s): I27.2 - OTHER SECONDARY PULMONARY HYPERTENSION * DO NOT USE * (6) ASHD (arteriosclerotic heart disease) Assessment/Plan: EST Consider Cardiac cath Code(s): I25.10 - ATHSCL HEART DISEASE OF [place] CORONARY ARTERY W/O ANG PCTRS (7) GI (gastrointestinal bleed) Assessment/Plan: PPI and EGD by GI is planned. Code(s): K92.2 - GASTROINTESTINAL HEMORRHAGE, UNSPECIFIED Qualifiers: GI bleed type/associated pathology: unspecified gastrointestinal hemorrhage type Qualified Code(s): K92.2 - Gastrointestinal hemorrhage, unspecified (8) Syncope Assessment/Plan: Recurrent episodes of syncope. EST today Consider EP. Cardiology consult appreciated Code(s): R55 - SYNCOPE AND COLLAPSE Qualifiers: Syncope type: unspecified Qualified Code(s): R55 - Syncope and collapse
[2018-08-11] MEDS ORDERED: PT OWN MED DRAWER 7, Y5N ONE (09:12)
[2018-08-11] MEDS ORDERED: REGADENOSON 0.4 MG/5 ML PRE-FILLED SYRINGE IVPUSH ONE ×2 (09:15→10:31)
--- NOTE | 2018-08-11 09:48 | PN ---
Progress Note, Physician Chief Complaint: Pt A&Ox3; no complaints. History of Present Illness: 68-year-old male ([place]) with past medical history of thyroidectomy about a month ago for goiter, hypertension, DVT (2017)/pulmonary embolism on anticoagulation, s/p right humoral fracture repair, brought in by his endocrine surgeon for syncope. The patient was in his usual state of health and undergoing a routine follow-up appointment with his surgeon. Upon leaving the facility, the patient was feeling dizzy and was sent down by the nurse. The patient had a brief syncopal episode. Surgeon was concerned as he was unable to briefly feel pulse in the patient appeared diaphoretic and clammy. However, patient returned back to baseline. Denies chest pain or shortness of breath. States that he feels well but came at the insistence of his surgeon. Denies recent illnesses, fevers, chills, cough, vomiting. Reports adherence his medications. Given the syncope, finding is concerning for potential cardiac etiology. Patient currently denies any chest pain short of breath. However, we'll obtain labs including troponin. We'll place patient on manager reporting and also in the patient to the hospital for syncope evaluation. - Current Medication List Current Medications: Active Medications Amlodipine Besylate (Norvasc -) 10 mg PO DAILY [facility] Last Admin: 08/10/18 12:24 Dose: 10 mg Atorvastatin Calcium (Lipitor -) 10 mg PO HS [facility] Last Admin: 08/10/18 21:50 Dose: 10 mg Levothyroxine Sodium (Synthroid -) 125 mcg PO DAILY@0700 [facility] Last Admin: 08/11/18 06:10 Dose: 125 mcg Pantoprazole Sodium (Protonix -) 40 mg PO DAILY [facility] Last Admin: 08/10/18 12:24 Dose: 40 mg Rivaroxaban (Xarelto -) 20 mg PO DAILY@1800 [facility] Last Admin: 08/10/18 17:51 Dose: 20 mg - Objective Vital Signs: Vital Signs Temperature 98.1 F 08/11/18 06:00 Pulse Rate 57 L 08/11/18 06:00 Respiratory Rate 20 08/11/18 06:00 Blood Pressure 117/58 L 08/11/18 06:00 O2 Sat by Pulse Oximetry (%) 97 08/10/18 21:00 Labs: CBC, BMP 08/09/18 05:30 08/09/18 05:30 INR, PTT INR 1.23 (0.83-1.09) H 08/08/18 18:39 Problem List - Problems (1) RBBB Code(s): I45.10 - UNSPECIFIED RIGHT BUNDLE-BRANCH BLOCK (2) Hypothyroidism Assessment/Plan: 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 Code(s): E03.9 - HYPOTHYROIDISM, UNSPECIFIED Qualifiers: Hypothyroidism type: acquired Qualified Code(s): E03.9 - Hypothyroidism, unspecified (3) Syncope Assessment/Plan: TNI < 0.02 x 2. elevated BUN/ f/u after hydration. Orthostatic vital sign checks. Mildly reduced TSH; f/u thyroid w/u rted as normal LVEF, moderate-severe pulmonary HTN. Carotid artery US; mild-moderate Atherosclerotic plaaque at carotid artery bifurcation; no significant stenoses. For Lexiscan stress MIBI ( lateral wall STT changes; multiple CAD risks; now with 2nd episode of syncope). Code(s): R55 - SYNCOPE AND COLLAPSE Qualifiers: Syncope type: unspecified Qualified Code(s): R55 - Syncope and collapse (4) HTN (hypertension) Code(s): I10 - ESSENTIAL (PRIMARY) HYPERTENSION Qualifiers: Hypertension type: essential hypertension Qualified Code(s): I10 - Essential (primary) hypertension (5) Mediastinal goiter Code(s): E04.8 - OTHER SPECIFIED NONTOXIC GOITER (6) Occlusion of right popliteal artery Code(s): I74.3 - EMBOLISM AND THROMBOSIS OF ARTERIES OF THE LOWER EXTREMITIES (7) Pulmonary embolism Assessment/Plan: Hx significant PE; on "permanent"anticoagulation; presently on rivaroxaban. Code(s): I26.99 - OTHER PULMONARY EMBOLISM WITHOUT ACUTE COR PULMONALE Qualifiers: Pulmonary embolism type: other Chronicity: acute Acute cor pulmonale presence: without acute cor pulmonale Qualified Code(s): I26.99 - Other pulmonary embolism without acute cor pulmonale (8) S/P thyroidectomy Code(s): E89.0 - POSTPROCEDURAL HYPOTHYROIDISM (9) Irregular heart rate Assessment/Plan: EKG: NSR with marked sinus arrhythmia; r/o AF (pt is on anticoagulation for PE, and has been on atenolol for BP and HR control). F/u on telemetry, and consider EP workup (syncope); ECHO: normal LVEF; moderately severe pulmonary HTN Stres MIBI. Code(s): I49.9 - CARDIAC ARRHYTHMIA, UNSPECIFIED
[2018-08-11] MEDS ORDERED: ATENOLOL 25 MG TABLET (FP) PO SCH (10:00)
[2018-08-11] MEDS: PANTOPRAZOLE 40 MG TABLET (FP) PO SCH (11:46)
[2018-08-11] MEDS: amLODIPine BESYLATE 10 MG TABLET (FP) PO SCH (11:46)
--- NOTE | 2018-08-11 17:13 | DS ---
Physical Examination Vital Signs: Vital Signs Temperature 98.2 F 08/11/18 14:15 Pulse Rate 61 08/11/18 14:15 Respiratory Rate 18 08/11/18 14:15 Blood Pressure 104/52 L 08/11/18 14:15 O2 Sat by Pulse Oximetry (%) 100 08/11/18 09:00 Findings/Remarks: EST normal Constitutional: Yes: No Distress Eyes: Yes: Conjunctiva Clear, EOM Intact HENT: Yes: Atraumatic, Normocephalic Neck: Yes: Supple Cardiovascular: Yes: Pulse Irregular (APC) Respiratory: Yes: Regular, CTA Bilaterally Gastrointestinal: Yes: Normal Bowel Sounds, Soft ...Rectal Exam: Yes: Deferred Renal/: No: Anuria Extremities: Yes: WNL Edema: No Neurological: Yes: WNL, Alert ...Motor Strength: WNL Psychiatric: Yes: WNL Labs: CBC, BMP 08/09/18 05:30 08/09/18 05:30 Discharge Summary Reason For Visit: SYNCOPE Current Active Problems ASHD (arteriosclerotic heart disease) (Acute) GI (gastrointestinal bleed) (Acute) Hypothyroidism (Acute) Irregular heart rate (Acute) RBBB (Acute) Syncope (Acute) - Instructions Diet, Activity, Other Instructions: Make appt with cardiology for follow up as outpt Referrals: Kevin Jennings MD [Primary Care Provider] - Disposition: HOME - Home Medications Comprehensive Discharge Medication List: Ambulatory Orders Amlodipine Besylate 10 mg PO DAILY 01/22/17 Atenolol [Tenormin -] 50 mg PO DAILY 01/22/17 Atenolol [Tenormin -] 25 mg PO DAILY tablet 08/11/18 Atorvastatin Ca [Lipitor] 10 mg PO HS tablet 08/11/18 Levothyroxine [Synthroid -] 125 mcg PO DAILY@0700 tablet 08/11/18 Pantoprazole Sodium [Protonix -] 40 mg PO DAILY tablet.ec 08/11/18 Rivaroxaban [Xarelto -] 20 mg PO DAILY@1800 tablet 08/11/18
[2018-08-11] MEDS: RIVAROXABAN 20 MG TABLET PO SCH (17:34)
[2018-08-11 20:40] VITALS: TEMP 98
[2018-08-11 20:41] VITALS: BP 106/62; PULSE 55
== END 2018-08-11 18:55 | disposition home or self-care (01) | DRG 204 ==
LOC: JER 17:34 → JERBED 21:31 → J4W 23:36
PROVIDERS: ADMIT Internal Medicine; ATTEND Internal Medicine
DX: R55 Syncope and collapse (principal); I45.10 Unspecified right bundle-branch block; E03.9 Hypothyroidism, unspecified; I10 Essential (primary) hypertension; I49.9 Cardiac arrhythmia, unspecified; I25.10 Atherosclerotic heart disease of native coronary artery without angina pectoris; D64.9 Anemia, unspecified; I34.0 Nonrheumatic mitral (valve) insufficiency; E04.8 Other specified nontoxic goiter; E78.00 Pure hypercholesterolemia, unspecified; I27.20 Pulmonary hypertension, unspecified; K92.2 Gastrointestinal hemorrhage, unspecified; E89.0 Postprocedural hypothyroidism; I26.99 Other pulmonary embolism without acute cor pulmonale; Z85.850 Personal history of malignant neoplasm of thyroid; Z86.718 Personal history of other venous thrombosis and embolism
CPT/HCPCS: 36415; 71045-TC-FY; 78452-TC; 80048; 80053; 80061; 81003; 82550; 83036; 83721; 84439; 84443; 84484; 85025; 85027; 85610; 85730; 93005; 93010; 93017; 93306-TC; 93880-TC; 99285-25; A9502; J2785